=== PATIENT | female | born 1960 | race Caucasian/White ===

== ENCOUNTER → 2017-08-07 15:18 | Outpatient (CLI) | payer MEDICARE, SELFPAY ==
--- NOTE | 2017-08-07 15:21 | HPBI_ITS ---
MAMMOGRAPHY - BILATERAL SCREENING REASON FOR EXAM: Female, 57 years old. Routine annual screening examination. PERTINENT HISTORY: Mother with breast cancer. TECHNIQUE: Digital bilateral breast natali (3D mammographic acquisition) in the CC and MLO projections. 2-D mediolateral oblique (MLO) and craniocaudad (CC) views of both breasts were obtained. CAD: Full Field Digital Mammography with Computer Added Detection was performed. COMPARISON: Comparison is made with prior study dated July 31, 2016 and January 25, 2015. FINDINGS: Breast Composition: The breasts are heterogeneously dense, which may obscure small masses. There are no dominant masses or suspicious calcifications. Stable benign-appearing bilateral axillary lymph nodes. No other significant abnormalities are identified. There has been no significant change since the prior study. HPBI/SCREENING MAMM (CAD), BILAT IMPRESSION: Stable bilateral screening mammogram. Yearly follow-up mammogram recommended. (A) ASSESSMENT CATEGORY: BIRADS Category 2: Benign. A letter regarding these results will be sent to the patient by the facility within 30 days. Approximately 10% of breast cancers are not detected by mammography. A normal mammogram should not delay biopsy of a clinically suspicious abnormality. [id number] Electronically Signed: Kaz Martinez MD at 9:49 EST Tel [phone], Service support ,
== END ==
PROVIDERS: Family Provider Internal Medicine; PCP Internal Medicine; Visit Provider Internal Medicine
DX: Z78.0 Asymptomatic menopausal state (principal); Z12.31 Encounter for screening mammogram for malignant neoplasm of breast
CPT/HCPCS: 77063; 77067

== ENCOUNTER → 2017-08-12 11:03 | Outpatient (CLI) | payer MEDICARE, SELFPAY ==
--- NOTE | 2017-08-12 11:05 | US_ITS ---
STUDY: THYROID ULTRASOUND REASON FOR EXAM: Female, 57 years old. Thyroid nodule. TECHNIQUE: Ultrasound evaluation of the thyroid was performed with real-time and static collado-scale imaging. COMPARISON: None. FINDINGS: RIGHT LOBE: The right lobe of the thyroid gland measures 3.6 cm x 1.4 cm x 1.7 cm. There is a 7.4 mm x 4.6 mm cyst in the lower pole of the right lobe.. There are no demonstrated solid, cystic or complex lesions. LEFT LOBE: The left lobe of the thyroid gland measures 4.1 cm x 1.2 cm x 1.4 cm. There is a homogeneous echotexture. There are no demonstrated solid, cystic or complex lesions. ISTHMUS: The isthmus measures 2.0 mm. The regional lymph nodes are normal. US/Thyroid IMPRESSION: 7.4 mm x 4.6 mm cyst in the lower pole of the right lobe of the thyroid. Electronically Signed: Kaz Martinez MD at 20:09 EST Tel [phone], Service support ,
--- NOTE | 2017-08-12 11:18 | HPBD_ITS ---
STUDY: DUAL ENERGY X-RAY ABSORPTIOMETRY / DXA REASON FOR EXAM: Female, 57 years old. Early menopause. Loss of height of 2.5 inches. TECHNIQUE: Bone Mineral Density (BMD) measurements of lumbar spine and bilateral hips were obtained. COMPARISON: Comparison is made with prior study dated January 25, 2015. FINDINGS: Lumbar Spine (L1-L4): g/cm2 (1.037) / T-score (-1.2) / Z-score (-0.2) Findings are suggestive of osteopenia with a moderate fracture risk. Left Femur Total: g/cm2 (0.928) / T-score (-0.6) / Z-score (0.2) Left Femoral Neck: g/cm2 (0.879) / T-score (-1.1) / Z-score (0.0) Right Femur Total: g/cm2 (0.893) / T-score (-0.9) / Z-score (-0.1) Right Femoral Neck: g/cm2 (0.865) / T-score (-1.2) / Z-score (-0.1) The T-Scores on the most recent prior examination were: Lumbar Spine (L1-L4): There has been worsening of bone density since the previous examination. Left Femur Total: which represents a worsening of 3.0%. Right Femur Total: which represents a worsening of 0.9%. HPBD/Dexa Bone Density Study (HP) IMPRESSION: The patient is considered osteopenic as outlined below according to World Ham Organization (WHO) criteria with a moderate fracture risk. There has been worsening of bone density since the previous examination. Reference Information: The T-score is the number of standard deviations above or below the standard which is normal for young adults at their peak bone mineral density. The World Health Organization (WHO) interprets the T-scores as follows: Above -1 Normal bone density Between -1 and -2.5 Osteopenia Equal to / or below -2.5 Osteoporosis As a practical clinical guideline, osteopenia may be graded as follows: Mild -1 through -1.5 Moderate -1.6 through -2.0 Severe -2.1 through -2.4 The Z-score is the number of standard deviations above or below age-matched controls. A Z-score of less than -1.5 would be considered abnormal. References: 1. NIH Osteoporosis and Related Bone Diseases http://www.osteo.org 2. International Society for Clinical Densitometry http://www.iscd.org 3. National Osteoporosis Foundation http://www.nof.org Electronically Signed: Kaz Martinez MD at 13:05 EST Tel [phone], Service support ,
== END ==
PROVIDERS: Family Provider Internal Medicine; PCP Internal Medicine; Visit Provider Internal Medicine
DX: E04.1 Nontoxic single thyroid nodule (principal); M85.80 Other specified disorders of bone density and structure, unspecified site; Z78.0 Asymptomatic menopausal state
CPT/HCPCS: 76536; 77080

== ENCOUNTER → 2017-10-06 14:02 | Outpatient (CLI) | payer MEDICARE, SELFPAY ==
--- NOTE | 2017-10-06 14:04 | RAD_ITS ---
STUDY: X-RAY CHEST REASON FOR EXAM: Female, 57 years old. Anterior but pain following a fall. TECHNIQUE: PA and lateral views of the chest. COMPARISON: Comparison is made with prior study dated September 27, 2016. FINDINGS: There now is evidence of infiltration in the left lower lobe as well as increased markings in the right lower lobe suggestive of bibasilar atelectasis and/or early infiltrate. With the patient's history of fall, this may represent contusion. Blunting of both costophrenic angles. Normal size heart. Normal mediastinum and yandy. Normal visualized pulmonary arteries. There is atherosclerotic tortuosity of the aortic arch and descending thoracic aorta. There are diffuse degenerative changes of the visualized thoracic spine. Normal visualized ribs, clavicles, and shoulders. Prior fusion of the lower cervical spine. There is no demonstrated abnormality of the visualized soft tissue structures of the upper abdomen. RAD/Chest PA and Lateral IMPRESSION: Infiltrates at both lung bases worse on the left side. Follow-up is recommended. Electronically Signed: Kaz Martinez MD at 14:26 EDT Tel [phone], Service support ,
--- NOTE | 2017-10-06 14:04 | RAD_ITS ---
STUDY: X-RAY - UNILATERAL RIBS ( LEFT ) REASON FOR EXAM: Female, 57 years old. Pain following a fall. TECHNIQUE: 4 view(s) of the ribs. COMPARISON: None. FINDINGS: Normal visualized ribs without a demonstrated fracture. Bibasilar pulmonary infiltrates worse on the left side. Blunting of both costophrenic angles. RAD/Ribs Unil 2V No CXR IMPRESSION: No rib fractures seen. Patchy bibasilar pulmonary infiltrates. Electronically Signed: Kaz Martinez MD at 14:58 EDT Tel [phone], Service support ,
== END ==
PROVIDERS: Family Provider Internal Medicine; PCP Internal Medicine; Visit Provider Internal Medicine
DX: R91.8 Other nonspecific abnormal finding of lung field (principal); R07.9 Chest pain, unspecified; R05 Cough
CPT/HCPCS: 71046; 71100; 71101

== ENCOUNTER → 2018-01-30 14:26 | Outpatient (CLI) | payer MEDICARE, SELFPAY ==
--- NOTE | 2018-01-30 14:28 | RAD_ITS ---
STUDY: X-RAY - PELVIS AND LEFT HIP REASON FOR EXAM: Female, 57 years old. Left hip pain. No trauma. TECHNIQUE: Radiological exam, hip, unilateral, with pelvis when performed; 2 or 3 views. COMPARISON: None. FINDINGS: There is a non-specific bowel gas pattern. Normal visualized soft tissue structures. Normal bilateral iliac wings, sacroiliac joints and visualized sacrum. Normal bilateral superior and inferior pubic rami. Normal pubic symphysis. Normal visualized femoral head. Normal acetabulum. There is moderate articular joint space narrowing of the hip. There is degenerative lumbosacral spondylosis. Mild/moderate right hip arthrosis. No demonstrated fracture or dislocation. RAD/HIP, UNI W/ Pelvis 2-3 Views IMPRESSION: 1. Mild/moderate bilateral degenerative hip arthrosis. 2. Significant degenerative spondylosis of the visualized lumbosacral spine. Electronically Signed: Neris Kimbrough MD at 18:19 EDT Tel , Service support ,
== END ==
PROVIDERS: Family Provider Internal Medicine; PCP Internal Medicine; Visit Provider Internal Medicine
DX: M16.12 Unilateral primary osteoarthritis, left hip (principal); M47.897 Other spondylosis, lumbosacral region
CPT/HCPCS: 73502

== ENCOUNTER → 2018-03-03 12:39 | Outpatient (CLI) | payer MEDICARE, SELFPAY ==
--- NOTE | 2018-03-03 12:42 | RAD_ITS ---
STUDY: X-RAY CHEST REASON FOR EXAM: Female, 57 years old. Chest pain. TECHNIQUE: PA and lateral views of the chest. COMPARISON: Comparison is made with prior study dated October 06, 2017. FINDINGS: Persistent increased interstitial markings with areas of confluence worse in the lingular segment of the left upper lobe. This has improved as compared to prior study. There is blunting of the right costophrenic angle posteriorly. Normal size heart. Normal mediastinum and yandy. Normal visualized pulmonary arteries. There is atherosclerotic tortuosity of the aortic arch and descending thoracic aorta. There is demineralization of the osseous structures. Normal visualized ribs, clavicles, and shoulders. There is no demonstrated abnormality of the visualized soft tissue structures of the upper abdomen. RAD/Chest PA and Lateral IMPRESSION: Residual increased linear markings with prominence of both lung bases slightly worse on the left side. Electronically Signed: Kaz Martinez MD at 13:04 EDT Tel [phone], Service support ,
== END ==
PROVIDERS: Family Provider Internal Medicine; PCP Internal Medicine; Visit Provider Internal Medicine
DX: R07.9 Chest pain, unspecified (principal)
CPT/HCPCS: 71046

== ENCOUNTER → 2018-03-03 12:58 | Outpatient (CLI) | payer MEDICARE, SELFPAY ==
[2018-03-03 13:22] LABS: Absolute Lymphocyte Count 1.76 X10^3/ul (0.83-4.51); Absolute Neutrophil Count 8.1 X10^3/uL (2.0-7.7); Basophil# 0.02 X10^3/uL; Basophil% 0.2 % (0-1); Eosinophil# 0.34 X10^3/uL; Eosinophils% 3.1 % (0-5); Hematocrit 41.8 % (37-47); Hemoglobin 12.6 g/dl (12.0-15.0); Lymphocyte # 1.76 X10^3/ul (4.0); Lymphocyte % 15.9 % (19-41); Mean Corp Hgb Conc 30.1 g/gl (32-36); Mean Corpuscular Hgb 24.5 pg (27.0-32.0); Mean Corpuscular Volume 81.2 fL (81-99); Mean Platelet Vol. 9.5 fl (6.2-12.0); Monocyte# 0.84 X10^3/uL; Monocyte% 7.6 % (0-10); Neutrophil # 8.12 X10^3/uL (2.7-7.7); Platelet Count 531 K/mm3 (150-450); RBC Distribution Width SD 54.1 fl (35.1-43.9); Red Blood Count 5.15 M/mm3 (4.2-5.4); White Blood Count 11.1 K/mm3 (4.4-11.0)
[2018-03-03 13:23] LABS: POSITIVE COUNT NO; POSITIVE DIFFERENTIAL NO; POSITIVE MORPHOLOGY NO
[2018-03-03 13:24] LABS: ALB/GLOB Ratio 0.7 RATIO (0.9-2.4); AST(SGOT) 22 U/L (15-37); Alanine Aminotransfer ALT/SGPT 49 U/L (13-56); Alkaline Phosphatase 253 U/L (45-117); Anion Gap 9 (5-15); BUN 9 mg/dL (7-18); BUN/Creat Ratio 11.8 RATIO (10-20); Calcium,Total 8.8 mg/dL (8.5-10.1); Chloride 105 mmol/L (98-107); Creatinine, Serum 0.76 mg/dL (0.55-1.02); EST Glomerular Filtration Rate 83 mL/min (>60); Est Glom Filt Rate - Afr Amer 100 mL/min (>60); Globulin 4.1 g/dL (2.2-4.2); Glucose 79 mg/dL (74-106); Protein, Total 7.1 g/dL (6.4-8.2); Sodium Level 141 mmol/L (136-145)
[2018-03-04 14:24] LABS: GGTP 213 U/L (5-55)
== END ==
PROVIDERS: Family Provider Internal Medicine; PCP Internal Medicine; Visit Provider Internal Medicine
DX: E87.1 Hypo-osmolality and hyponatremia (principal); E53.8 Deficiency of other specified B group vitamins; R74.8 Abnormal levels of other serum enzymes; R07.9 Chest pain, unspecified
CPT/HCPCS: 71046; 80053; 82977; 85025

== ENCOUNTER 2018-03-09 20:41 | Emergency (ER) | payer MEDICARE, SELFPAY ==
[2018-03-09 20:43] VITALS: BP 168/100; PULSE 119; RESP 18; TEMP 35.6; O2SAT 95; BMI 41.1
--- NOTE | 2018-03-09 20:46 | ED.RN ---
rn called for ekg pulled old ekg for
--- NOTE | 2018-03-09 21:05 | EKG12_ITS ---
Test Reason : CP Blood Pressure : / mmHG Vent. Rate : 117 BPM Atrial Rate : 117 BPM P-R Int : 140 ms QRS Dur : 082 ms QT Int : 312 ms P-R-T Axes : 000 153 137 degrees QTc Int : 435 ms Sinus tachycardia Left posterior fascicular block Possible Inferior infarct , age undetermined Abnormal ECG Confirmed by BROOKE PERKINS, LEE ([id number]), desk editor PABLO NUGENT ([id number]) on 03/12/2018 1:07:42 PM Referred By: GOMEZ Confirmed By:LEE COX MD
--- NOTE | 2018-03-09 21:05 | CT_ITS ---
STUDY: CTA CHEST REASON FOR EXAM: Female, 57 years old. Chest pain RADIATION DOSAGE (If Supplied By Facility): CTDIvol = ( 8.90 ) mGy, DLP = ( 517.44 ) mGycm TECHNIQUE: The examination was performed with the intravenous administration of 100 ml of Isovue 370 contrast material. Post-processing of the angiographic images was performed, with multiplanar reformation and 3D reconstruction. There is obesity, the entirety of soft tissue is not imaged. Individualized dose optimization techniques were used for this CT. COMPARISON: Chest x-ray 03/03/2018. FINDINGS: Normal enhancement of the main pulmonary artery and right and left pulmonary arteries. Limited enhancement of the bilateral peripheral pulmonary arteries. There is no central demonstrated pulmonary embolism. Ectasia of the ascending thoracic aorta 4.12 cm. Normal descending thoracic aortic diameter off 2.4 x 2.4 cm. There is no demonstrated aortic dissection. Normal heart and pericardium. Normal mediastinum. Normal hilar regions. Normal visualized trachea and bronchi. The lungs are under expanded. Bilateral platelike atelectasis and small areas of bilateral airspace opacification in the bases. Linear calcification versus sutures in the right base. Bilateral small pleural effusions. Normal chest wall structures. There are degenerative changes of thoracic spine and bilateral shoulder joints. Remote anterior fusion lower cervical spine. Normal visualized upper abdomen. CT/CTA Chest W/WO Contrast IMPRESSION: No demonstrated central pulmonary embolism, leak or arterial dissection. Limited peripheral pulmonary embolic assessment due to technical factors. Ectasia of the thoracic ascending aorta. Low lung volume with bilateral atelectasis, small bilateral pleural effusion, small areas of opacification possible mild infiltrates in the bases versus compression of parenchyma. Electronically Signed: Caren Iqbal MD at 0:41 EDT , Service support ,
[2018-03-09 21:21] LABS: International Normalized Ratio 1.9; Prothrombin Time (Protime)PT. 22.1 SECONDS (11.7-14.9)
[2018-03-09 21:22] VITALS: O2SAT 94
[2018-03-09] MEDS: 0.9% Normal Saline 1,000 ML 1000 ML IV (21:23)
[2018-03-09 21:28] LABS: Absolute Lymphocyte Count 1.24 X10^3/ul (0.83-4.51); Absolute Neutrophil Count 11.8 X10^3/uL (2.0-7.7); Anion Gap 10 (5-15); BUN 13 mg/dL (7-18); BUN/Creat Ratio 13.1 RATIO (10-20); Basophil# 0.04 X10^3/uL; Basophil% 0.3 % (0-1); Chloride 103 mmol/L (98-107); Creatinine, Serum 0.99 mg/dL (0.55-1.02); EST Glomerular Filtration Rate 61 mL/min (>60); Eosinophil# 0.41 X10^3/uL; Eosinophils% 2.8 % (0-5); Est Glom Filt Rate - Afr Amer 74 mL/min (>60); Estimated Creatinine Clearance 53.49 ml/min; Glucose 196 mg/dL (74-106); Hematocrit 43.4 % (37-47); Hemoglobin 13.4 g/dl (12.0-15.0); Lymphocyte # 1.24 X10^3/ul (4.0); Lymphocyte % 8.4 % (19-41); Mean Corp Hgb Conc 30.9 g/gl (32-36); Mean Corpuscular Hgb 24.8 pg (27.0-32.0); Mean Corpuscular Volume 80.4 fL (81-99); Mean Platelet Vol. 9.5 fl (6.2-12.0); Monocyte# 1.19 X10^3/uL; Monocyte% 8.1 % (0-10); Neutrophil # 11.78 X10^3/uL (2.7-7.7); Neutrophil % 79.9 % (47-70); Platelet Count 381 K/mm3 (150-450); Potassium 5.1 mmol/L (3.5-5.1); RBC Distribution Width CV 18.3 % (11.6-14.6); RBC Distribution Width SD 53.6 fl (35.1-43.9); Sodium Level 136 mmol/L (136-145); White Blood Count 14.7 K/mm3 (4.4-11.0)
[2018-03-09 21:36] LABS: POSITIVE COUNT NO; POSITIVE DIFFERENTIAL NO; POSITIVE MORPHOLOGY NO
[2018-03-09] MEDS: MethylPREDNISolone 125 MG/2 ML Vial IV (21:37)
[2018-03-09] MEDS: DiphenhydrAMINE 50 MG/ML Syringe 25 MG IV (21:37)
[2018-03-09 21:48] VITALS: BP 143/104; PULSE 95; RESP 17; O2SAT 99
[2018-03-09 22:00] VITALS: BP 145/104; PULSE 92; O2SAT 96
[2018-03-09 23:00] VITALS: BP 140/87; PULSE 93; RESP 17; O2SAT 95
--- NOTE | 2018-03-09 23:51 | ED.VISSUMM ---
- ER Visit Summary Date of Service: 03/09/18 Chief Complaint: Chest pain History of Present Illness: The patient is a [address] bains and Dr. Crane. She reports that she has right-sided chest pain that began 5 days ago. It is continuous aching pain with sharp episodes. States pain is 1010 hrs. and 7-10 currently. There is no change with exertion. She reports is worsened with deep breaths or movement. Is relieved by nothing. Patient complains of subjective fever and chills. States that she had a cough, that this resolved 2 days ago. States that she had been on Levaquin for 10 days. She was offered 3 days and her cough resumed. She then begin Levaquin again 5 days ago and is scheduled to take this for another 5 days. Patient reports that she has mild shortness of breath. States that she has been nauseated. No abdominal pain. No vomiting or diarrhea. No dysuria or frequency. No rash, headache, numbness, or weakness. Physical Examination: Vitals: 96.1, 168/100, 119, 18, 95% on room air which is not hypoxic. General: Well-nourished and well-developed. Head: Normocephalic atraumatic. Neck: Supple, no lymphadenopathy. No JVD. Nontender. Cardiovascular: Regular rate and rhythm. No murmurs. Respiratory: No respiratory distress. Clear to auscultation bilaterally. Chest is nontender. Abdominal: Soft, nontender, nondistended, normal bowel sounds. No guarding, rebound, or peritoneal signs. Back: Nontender. Extremities: Nontender, no edema. Skin: Normal color, no rash. Neurologic: Alert and oriented ?3. Cranial nerves II through XII are intact. Normal strength and sensation. Psych: Normal affect. Test Results: EKG is sinus tach [address] changes. CBC is marked for white count of 14.7 with 80 segmented neutrophils and 8 lymphocytes. Chem-7 is more for glucose of 196. INR is 1.9. Clinical Impression(s) from Imaging Studies Chest CTA 03/09/18 21:05 IMPRESSION: No demonstrated central pulmonary embolism, leak or arterial dissection. Limited peripheral pulmonary embolic assessment due to technical factors. Ectasia of the thoracic ascending aorta. Low lung volume with bilateral atelectasis, small bilateral pleural effusion, small areas of opacification possible mild infiltrates in the bases versus compression of parenchyma. Electronically Signed: Caren Iqbal MD at 0:41 EDT , Service support , Emergency Department Course and Treatment: Patient reports that her resting heart rate is typically approximately 110. However, after Benadryl, Solu-Medrol, and a liter of IV fluids her heart rate is currently 95. Her blood pressures decreased 143/104. She is resting comfortably. Treatment Plan: The patient was discussed with Dr. Bains and the findings on the CTA of the chest were reviewed. She felt that the patient should be admitted to the hospital for IV steroids. The patient does not want to stay in the hospital. She was already given a dose of Solu-Medrol IV. I did discuss with her the low INR. She reports that she took 4 mg of Coumadin 30 minutes before coming in today. We discussed the possibility of changing her antibiotic from Levaquin to doxycycline. Her last dose was 11 hours ago. She has a great deal of suleman and Dr. Bains and I suggested she speak with her about that before we make that change. She is instructed to follow-up with Dr. Bains in 1-2 days if not improving. Follow-up with Dr. Crane in 2 days as previously scheduled. Return to the emergency department for any worsening symptoms. Disposition: To home in improved and stable condition. Impression: 1. Dyspnea. 2. Rheumatoid arthritis on CellCept. 3. Subtherapeutic INR. This note was generated with [employer] dictation software. It may contain incorrect words, spelling, and punctuation that were not noted in review of the chart prior to signing ED Disposition - Plan for ED Patient: Chief Complaint: Chest Pain Instructions: ED Dyspnea Shortness of Breath Referrals: Fatmata Bains DO [Primary Care Provider] - 1-2 Days if not improving Jesus Crane MD [STAFF PHYSICIAN] - Keep [facility] appointment
[2018-03-10] VITALS: BP 155/103; PULSE 85; O2SAT 97
[2018-03-10 01:25] VITALS: BP 146/104; PULSE 91; RESP 20; O2SAT 92
== END 2018-03-10 01:26 | disposition home or self-care (01) ==
LOC: ED 21:41
PROVIDERS: Emergency Provider Emergency Medicine; Family Provider Internal Medicine; PCP Internal Medicine
DX: R06.00 Dyspnea, unspecified (principal); M06.9 Rheumatoid arthritis, unspecified; I74.10 Embolism and thrombosis of unspecified parts of aorta; I10 Essential (primary) hypertension; E78.00 Pure hypercholesterolemia, unspecified; Z79.01 Long term (current) use of anticoagulants
CPT/HCPCS: 71275; 80048; 85025; 85610; 93005; 96361; 96374; 96375; 99284; J7030; Q9967; A4216

== ENCOUNTER → 2018-04-06 14:02 | Outpatient (CLI) | payer MEDICARE, SELFPAY ==
[2018-04-06 14:25] LABS: Erythrocyte Sedimentation Rate 32 mm/hr (0-30)
[2018-04-06 14:29] LABS: Absolute Lymphocyte Count 2.21 X10^3/ul (0.83-4.51); Absolute Neutrophil Count 8.3 X10^3/uL (2.0-7.7); Basophil# 0.02 X10^3/uL; Basophil% 0.2 % (0-1); Eosinophil# 0.25 X10^3/uL; Eosinophils% 2.1 % (0-5); Hematocrit 43.6 % (37-47); Hemoglobin 13.2 g/dl (12.0-15.0); Lymphocyte # 2.21 X10^3/ul (4.0); Lymphocyte % 18.8 % (19-41); Mean Corp Hgb Conc 30.3 g/gl (32-36); Mean Corpuscular Volume 82.7 fL (81-99); Mean Platelet Vol. 9.9 fl (6.2-12.0); Monocyte# 0.95 X10^3/uL; Monocyte% 8.1 % (0-10); Neutrophil # 8.26 X10^3/uL (2.7-7.7); Neutrophil % 70.5 % (47-70); Platelet Count 393 K/mm3 (150-450); RBC Distribution Width CV 17.9 % (11.6-14.6); RBC Distribution Width SD 54.3 fl (35.1-43.9); Red Blood Count 5.27 M/mm3 (4.2-5.4); White Blood Count 11.7 K/mm3 (4.4-11.0)
[2018-04-06 14:32] LABS: POSITIVE COUNT NO; POSITIVE DIFFERENTIAL NO; POSITIVE MORPHOLOGY NO
[2018-04-06 14:36] LABS: International Normalized Ratio 1.8; Prothrombin Time (Protime)PT. 21.3 SECONDS (11.7-14.9)
[2018-04-06 14:37] LABS: ALB/GLOB Ratio 0.8 RATIO (0.9-2.4); AST(SGOT) 20 U/L (15-37); Alanine Aminotransfer ALT/SGPT 52 U/L (13-56); Albumin, Serum 3.1 g/dL (3.2-5.0); Alkaline Phosphatase 199 U/L (45-117); Anion Gap 8 (5-15); BUN 10 mg/dL (7-18); BUN/Creat Ratio 12.3 RATIO (10-20); Chloride 102 mmol/L (98-107); Creatinine, Serum 0.81 mg/dL (0.55-1.02); EST Glomerular Filtration Rate 77 mL/min (>60); Est Glom Filt Rate - Afr Amer 93 mL/min (>60); Glucose 83 mg/dL (74-106); Potassium 3.7 mmol/L (3.5-5.1); Protein, Total 7.1 g/dL (6.4-8.2); Sodium Level 141 mmol/L (136-145)
== END ==
PROVIDERS: Family Provider Internal Medicine; PCP Internal Medicine; Referring Provider Internal Medicine; Visit Provider Internal Medicine
DX: K11.1 Hypertrophy of salivary gland (principal); R07.9 Chest pain, unspecified
CPT/HCPCS: 80053; 84484; 85025; 85610; 85652; 86140

== ENCOUNTER → 2018-06-01 12:19 | Outpatient (CLI) | payer MEDICARE, SELFPAY ==
--- NOTE | 2018-06-01 13:10 | MRI_ITS ---
STUDY: MRI ORBITS WITH AND WITHOUT CONTRAST REASON FOR EXAM: Female, 57 years old. Generalized facial swelling TECHNIQUE: Standardized fat and water weighted pulse sequences were obtained in all 3 orthogonal planes, pre-and post contrast administration. 10 ml of Gadavist contrast material was administered intravenously for the contrast portion of the examination. COMPARISON: None. FINDINGS: Normal bilateral globes. Normal bilateral optic nerve sheath complexes and optic nerves. Normal bilateral intraconal and extraconal spaces. Normal bilateral extraocular muscles. Normal optic chiasm and post-chiasmatic tracts. Normal sella turcica, pituitary gland, infundibular stalk, and hypothalamus. Normal bilateral cavernous sinuses. Normal tectal plate and pineal gland. Normal flow voids within the major intracranial circulation suggesting patency by spin echo criteria. Normal size of the ventricles and extra-axial spaces for the patient's age. Minor periventricular white matter ischemic changes without evidence for acute infarct. Normal bilateral basal ganglia. Normal thalami. There is no extra-axial fluid accumulation. Normal midbrain, johnathan and medulla. Normal cerebellum. Normal basal cisterns. There is diffuse increased fatty infiltration of the cheeks as well as the parotid glands and mild fatty infiltration of the masseter muscles. No focal mass or pathologic adenopathy. MRI/Orbit Face Neck W/WO Contrast IMPRESSION: Nonspecific increasing fatty infiltration of the facial soft tissues including the parotid glands and masseter muscles. No focal mass or abnormal enhancement Electronically Signed: Kevin Sebastian MD at 16:24 EST , Service support ,
--- NOTE | 2018-06-01 15:40 | NURSING ---
MRI CONTRAST INJECTED THROUGH RT AC 22GA ACCESS VIA BUTTERFLY NEEDLE. PT TOLERATED WELL.
[2018-06-01 17:00] LABS: Absolute Lymphocyte Count 2.54 X10^3/ul (0.83-4.51); Absolute Neutrophil Count 9.2 X10^3/uL (2.0-7.7); Basophil# 0.04 X10^3/uL; Basophil% 0.3 % (0-1); Eosinophil# 0.18 X10^3/uL; Eosinophils% 1.4 % (0-5); Hemoglobin 13.2 g/dl (12.0-15.0); Lymphocyte # 2.54 X10^3/ul (4.0); Lymphocyte % 19.4 % (19-41); Mean Corp Hgb Conc 30.7 g/gl (32-36); Mean Corpuscular Hgb 26.7 pg (27.0-32.0); Mean Corpuscular Volume 86.9 fL (81-99); Mean Platelet Vol. 10.1 fl (6.2-12.0); Monocyte% 7.6 % (0-10); Neutrophil # 9.23 X10^3/uL (2.7-7.7); Neutrophil % 70.5 % (47-70); Platelet Count 438 K/mm3 (150-450); RBC Distribution Width CV 19.4 % (11.6-14.6); RBC Distribution Width SD 60.8 fl (35.1-43.9); Red Blood Count 4.95 M/mm3 (4.2-5.4); White Blood Count 13.1 K/mm3 (4.4-11.0)
[2018-06-01 17:09] LABS: POSITIVE COUNT NO; POSITIVE DIFFERENTIAL NO; POSITIVE MORPHOLOGY NO
[2018-06-01 17:28] LABS: Vitamin D,25 Hydroxy 18.2 ng/mL (29.95-100.01)
[2018-06-01 17:29] LABS: ALB/GLOB Ratio 0.7 RATIO (0.9-2.4); AST(SGOT) 21 U/L (15-37); Alanine Aminotransfer ALT/SGPT 38 U/L (13-56); Albumin, Serum 2.9 g/dL (3.2-5.0); Alkaline Phosphatase 169 U/L (45-117); Anion Gap 9 (5-15); BUN 14 mg/dL (7-18); BUN/Creat Ratio 13.6 RATIO (10-20); Calcium,Total 8.8 mg/dL (8.5-10.1); Chloride 104 mmol/L (98-107); Creatinine, Serum 1.03 mg/dL (0.55-1.02); EST Glomerular Filtration Rate 58 mL/min (>60); Est Glom Filt Rate - Afr Amer 71 mL/min (>60); Globulin 4.1 g/dL (2.2-4.2); Glucose 85 mg/dL (74-106); Potassium 3.8 mmol/L (3.5-5.1); Sodium Level 142 mmol/L (136-145); Thyroid Stim Hormone (TSH) 1.67 uIU/mL (0.358-3.74)
[2018-06-01 17:33] LABS: Erythrocyte Sedimentation Rate 28 mm/hr (0-30)
[2018-06-01 18:44] LABS: BNP,B-Type NATRIURETIC PEPTIDE 17.8 pg/mL (0-100)
[2018-06-03 14:01] LABS: RNP Ab <0.2 AI (0.0-0.9); Smith Ab <0.2 AI (0.0-0.9)
[2018-06-03 15:34] LABS: ANTINUCLEAR ANTIBODIES DIRECT Negative (Negative)
[2018-06-06 12:06] LABS: Dilute Prothrombin Time (dPT) 116.2 sec (0.0-55.0); Dilute Russell Viper Venom Mix 50.3 sec (0.0-47.0); PTT-LA 45.6 sec (0.0-51.9); Thrombin Time 18.3 sec (0.0-23.0)
[2018-06-08 11:36] LABS: CCP IgG Antibodies 162 units (0-19); Interpretation Comment: (.)
== END ==
PROVIDERS: Family Provider Internal Medicine; PCP Internal Medicine; Referring Provider Internal Medicine; Visit Provider Internal Medicine
DX: M06.9 Rheumatoid arthritis, unspecified (principal); M79.7 Fibromyalgia; M35.00 Sjogren syndrome, unspecified; D68.62 Lupus anticoagulant syndrome; M54.2 Cervicalgia; R22.0 Localized swelling, mass and lump, head; R06.02 Shortness of breath
CPT/HCPCS: 36415; 70543; 80053; 82306; 83880; 84443; 85025; 85652; 86038; 86140; 86200; 86225; 86235; 86431; A9585

== ENCOUNTER → 2018-07-17 14:29 | Outpatient (CLI) | payer MEDICARE, SELFPAY ==
--- NOTE | 2018-07-17 14:32 | CT_ITS ---
STUDY: CT CHEST WITHOUT CONTRAST REASON FOR EXAM: Female, 57 years old. Rheumatoid lung. RADIATION DOSAGE (If Supplied By Facility): CTDIvol = ( 14.80 ) mGy, DLP = ( 436.24 ) mGycm TECHNIQUE: Transaxial imaging was performed without the administration of intravenous contrast material. Coronal and sagittal reformatted images were created. Individualized dose optimization techniques were used for this CT. COMPARISON: 03/09/2018 FINDINGS: There is linear opacity in the mid to lower lung davidson bilaterally which may be due to scarring or atelectasis. There are no pulmonary infiltrates. There is a trace left pleural effusion. There is no right-sided effusion. There are no pulmonary nodules or masses. There is no pneumothorax. The heart and pericardium are within normal limits. There is no thoracic lymphadenopathy. There is no evidence of thoracic aortic aneurysm. Images through the upper abdomen demonstrate no significant abnormality. There are no destructive osseous lesions. CT/Chest without Contrast IMPRESSION: Linear opacity in the mid to lower lung davidson bilaterally which may be due to atelectasis or scarring. Trace left pleural effusion. Otherwise, clear lungs. Electronically Signed: Markus Mackenzie, at 15:07 EST Tel , Service support ,
== END ==
PROVIDERS: Family Provider Internal Medicine; PCP Internal Medicine; Referring Provider Internal Medicine Pulmonary Disease; Visit Provider Internal Medicine Pulmonary Disease
DX: M05.10 Rheumatoid lung disease with rheumatoid arthritis of unspecified site (principal)
CPT/HCPCS: 71250

== ENCOUNTER → 2018-07-30 13:00 | Outpatient (CLI) | payer MEDICARE, SELFPAY ==
--- NOTE | 2018-07-30 13:04 | US_ITS ---
STUDY: THYROID ULTRASOUND REASON FOR EXAM: Female, 58 years old. Nodules. TECHNIQUE: Ultrasound evaluation of the thyroid was performed with real-time and static collado-scale imaging. COMPARISON: August 12, 2017 FINDINGS: RIGHT LOBE: The right lobe of the thyroid gland measures 4.7 x 1.5 x 1.7 cm. There is a homogeneous echotexture. There is a grossly stable cyst within the right lobe measuring 7.4 x 4.6 mm. LEFT LOBE: The left lobe of the thyroid gland measures 4.4 x 1.2 x 1.6 cm. There is a homogeneous echotexture. There are no demonstrated solid, cystic or complex lesions. ISTHMUS: The isthmus measures 4 mm . The regional lymph nodes are normal. US/Thyroid IMPRESSION: Stable 7.4 x 4.6 mm cyst within the right lobe. Enlarged thyroid gland. Electronically Signed: Mariel Storm MD at 16:27 EST Tel , Service support ,
== END ==
PROVIDERS: Family Provider Internal Medicine; PCP Internal Medicine; Referring Provider Internal Medicine; Visit Provider Internal Medicine
DX: E04.1 Nontoxic single thyroid nodule (principal)
CPT/HCPCS: 76536

== ENCOUNTER → 2018-08-07 12:19 | Outpatient (CLI) | payer MEDICARE, SELFPAY ==
--- NOTE | 2018-08-07 12:46 | RAD_ITS ---
STUDY: X-RAY - RIGHT HAND REASON FOR EXAM: Female, 58 years old. Pain TECHNIQUE: 3 view(s) of the hand. COMPARISON: None. FINDINGS: There are degenerative changes involving the interphalangeal joint of the thumb and first carpometacarpal joint. There also degenerative changes involving the radiocarpal articulation and distal radioulnar joint. No acute fractures or dislocations are seen but there is significant soft tissue swelling of the dorsum of the wrist and in the distal forearm. RAD/Hand Min 3 Views IMPRESSION: Soft tissue swelling of the dorsum of the wrist and in the distal forearm. There are no fractures. Degenerative changes involving the interphalangeal joint of the thumb and the first carpometacarpal joint. The radiocarpal and distal radioulnar joints also show degenerative changes Electronically Signed: Shiv Mason MD at 4:32 EST Tel , Service support ,
--- NOTE | 2018-08-07 12:46 | RAD_ITS ---
STUDY: X-RAY - RIGHT SHOULDER REASON FOR EXAM: Female, 58 years old. Pain TECHNIQUE: 4 view(s) of the shoulder. COMPARISON: Chest x-ray March 03, 2018 FINDINGS: There is mild degenerative arthrosis of the glenohumeral articulation. There is a widened appearance of the right-sided acromioclavicular joint which is age indeterminant. Normal acromion. Cephalad migration of the right humeral head. This can be associated with chronic rotator cuff injury. The soft tissue structures are unremarkable. Normal visualized pulmonary apex. RAD/Shoulder min 2 Views IMPRESSION: Age-indeterminate widened appearance of the right side acromioclavicular joint recommend correlation with traumatic and/or post operative history. May be erosive resected or potentially represent a type I AC separation. Degenerative change right glenohumeral joint. Electronically Signed: Vielka Suggs MD at 20:00 EST Tel , Service support ,
--- NOTE | 2018-08-07 12:46 | RAD_ITS ---
STUDY: X-RAY - LEFT HAND REASON FOR EXAM: Female, 58 years old. Pain TECHNIQUE: 3 view(s) of the hand. COMPARISON: None. FINDINGS: There are degenerative changes involving the interphalangeal joint of the thumb, first carpometacarpal joint and the radiocarpal joint. There are no acute fractures or dislocations but there is soft tissue swelling of the wrist and distal forearm. RAD/Hand Min 3 Views IMPRESSION: No fractures. Degenerative changes involving the interphalangeal joint of the thumb, the first carpometacarpal joint and the radiocarpal joint Electronically Signed: Shiv Mason MD at 4:34 EST Tel , Service support ,
--- NOTE | 2018-08-07 12:46 | RAD_ITS ---
STUDY: X-RAY - LEFT SHOULDER REASON FOR EXAM: Female, 58 years old. Pain TECHNIQUE: 4 view(s) of the shoulder. COMPARISON: None. FINDINGS: Degenerative changes of the left hip joint and the glenohumeral articulation. No acute fracture. No calcific tendinitis or bursitis. Electronically Signed: Shiv Mason MD at 5:15 EST Tel , Service support , RAD/Shoulder min 2 Views
--- NOTE | 2018-08-07 12:47 | RAD_ITS ---
STUDY: X-RAY - RIGHT FOOT CLINICAL: Female, 58 years old. Pain TECHNIQUE: 3 view(s) of the foot. COMPARISON: None. FINDINGS: The bones are osteopenic. There is a plantar aspect calcaneal spur. Normal visualized subtalar, talonavicular, calcaneocuboid, tarsal and tarsometatarsal articulations. Normal metatarsi. There are mild degenerative changes of the first metatarsophalangeal joint. Normal tibial and fibular sesamoid bones. Normal interphalangeal joint of the great toe. Normal phalanges of the great toe. Normal second through fifth metatarsophalangeal joints. Normal interphalangeal joints and phalanges of the lesser toes. The soft tissue structures are unremarkable. RAD/Foot min 3 Views IMPRESSION: Generalized osteopenia. Plantar aspect calcaneal spur. Mild degenerative changes of the first metatarsophalangeal joint. Electronically Signed: Fabio Chen MD at 23:58 EST , Service support ,
--- NOTE | 2018-08-07 12:48 | RAD_ITS ---
STUDY: X-RAY - LEFT FOOT CLINICAL: Female, 58 years old. Pain TECHNIQUE: 3 view(s) of the foot. COMPARISON: None. FINDINGS: The bones are osteopenic. There is a plantar aspect calcaneal spur. Normal visualized subtalar, talonavicular, calcaneocuboid, tarsal and tarsometatarsal articulations. Normal metatarsi. There are mild arthritic changes of the first metatarsophalangeal joint. Normal tibial and fibular sesamoid bones. Normal interphalangeal joint of the great toe. Normal phalanges of the great toe. Normal second through fifth metatarsophalangeal joints. Normal interphalangeal joints and phalanges of the lesser toes. The soft tissue structures are unremarkable. RAD/Foot min 3 Views IMPRESSION: Plantar aspect calcaneal spur. Generalized osteopenia. Mild arthritic changes of the first metatarsophalangeal joint. Electronically Signed: Fabio Chen MD at 23:56 EST , Service support ,
== END ==
PROVIDERS: Family Provider Internal Medicine; PCP Internal Medicine; Referring Provider Internal Medicine Rheumatology; Visit Provider Internal Medicine Rheumatology
DX: M06.9 Rheumatoid arthritis, unspecified (principal); M35.00 Sjogren syndrome, unspecified; D68.62 Lupus anticoagulant syndrome; M54.2 Cervicalgia; R22.0 Localized swelling, mass and lump, head
CPT/HCPCS: 73030; 73130; 73630

== ENCOUNTER 2019-02-07 16:36 | Emergency (ER) | payer MEDICARE, SELFPAY ==
[2019-02-07 16:37] VITALS: BP 129/72; PULSE 109; RESP 16; TEMP 36.1; O2SAT 99; BMI 42.9
--- NOTE | 2019-02-07 17:20 | CT_ITS ---
STUDY: CT BRAIN WITHOUT CONTRAST REASON FOR EXAM: Female, 58 years old. Head trauma RADIATION DOSAGE (If Supplied By Facility): CTDIvol = ( 44.99 ) mGy, DLP = ( 779.24 ) mGycm TECHNIQUE: Transaxial CT imaging of the brain was performed without administration of intravenous contrast material. Individualized dose optimization techniques were used for this CT. COMPARISON: No relevant priors. FINDINGS: Normal soft tissue structures. Normal calvarium. Normal size ventricles and extra-axial spaces for the patient's age. Normal white matter tracts of the cerebral hemispheres. Normal basal ganglia and thalami. Normal brainstem. Normal cerebellum. There is no intracranial hemorrhage. There are no findings of an acute ischemic infarction. Normal visualized paranasal sinuses. CT/Brain/Head without Contrast IMPRESSION: Normal unenhanced CT scan of the brain. Electronically Signed: Sean Michaels MD at 18:04 EDT , Service support ,
--- NOTE | 2019-02-07 18:41 | ED.VISSUMM ---
- ER Visit Summary Date of Service: 02/07/19 Chief Complaint: Painless right eye visual loss. History of Present Illness: The patient is a 58 F on Coumadin due to a lupus anticoagulant. Patient states that she fell the other day. At the right side of her face. Was not evaluated. And since Friday has had decreasing vision in the right eye. She was concerned for detached retina. Says she is able to see things closer to her but as he gets further away she cannot see it. Physical Examination: Vital signs stable afebrile. Her visual acuity she is unable to see the letters from normal distance. She is 20/40 in the left and 20/40 bilaterally. With me standing 2 feet from her. She can sit holding up 2 fingers and she can see movement. HEENT exam pupils are unreactive/motions are intact. Some scalp exam of the right eye is unremarkable but limited due to it was not dilated. Neck nontender. Lungs clear to auscultation. Heart regular rhythm no murmur. Abdomen soft nontender. Extremities moves all 4. Neurovascular intact. Test Results: CAT scan of the brain was obtained read as normal by the radiologist reviewed by me. No bleed. No obvious stroke. Emergency Department Course and Treatment: Discussed with Dr. Wall of patient's wound care center consultant on page. He is comfortable as NH with her being evaluated in his office tomorrow. This is been ongoing now for 6 days. Treatment Plan: Follow-up with Dr. Wall's office first thing tomorrow morning. Disposition: Discharge Impression: Acute right eye painless visual loss of uncertain etiology Anticoagulated on Coumadin Recent head injury This note was generated with [employer] dictation software. It may contain incorrect words, spelling, and punctuation that were not noted in review of the chart prior to signing ED Disposition - Plan for ED Patient: Referrals: Fatmata Bains DO [Primary Care Provider] -
--- NOTE | 2019-02-07 18:44 | ED.DEP ---
ED Disposition - Plan for ED Patient: Disposition: Home or Assisted Living Referrals: Kevin Wall MD [STAFF PHYSICIAN] - 1 Day Additional Instructions: Call and make an appointment Dr. Wall office first thing tomorrow morning or he states you can just show up at 8 AM and he will work you in and see you tomorrow morning.
[2019-02-07 18:50] VITALS: BP 139/92; PULSE 98; RESP 16; O2SAT 97
== END 2019-02-07 18:54 | disposition home or self-care (01) ==
PROVIDERS: Emergency Provider Emergency Medicine; Family Provider Internal Medicine; PCP Internal Medicine
DX: H54.61 Unqualified visual loss, right eye, normal vision left eye (principal); S09.90XA Unspecified injury of head, initial encounter; W19.XXXA Unspecified fall, initial encounter; Y93.9 Activity, unspecified; D68.62 Lupus anticoagulant syndrome; Z79.01 Long term (current) use of anticoagulants; I10 Essential (primary) hypertension; M06.9 Rheumatoid arthritis, unspecified; Z79.899 Other long term (current) drug therapy; Z86.73 Personal history of transient ischemic attack (TIA), and cerebral infarction without residual deficits
CPT/HCPCS: 70450; 99283

== ENCOUNTER → 2019-06-04 12:12 | Outpatient (CLI) | payer MEDICARE, SELFPAY ==
[2019-06-04 12:37] LABS: Absolute Lymphocyte Count 1.74 X10^3/uL (0.83-4.51); Absolute Neutrophil Count 7.5 X10^3/uL (2.0-7.7); Basophil# 0.07 X10^3/uL; Basophil% 0.7 % (0-1); Eosinophil# 0.27 X10^3/uL; Eosinophils% 2.5 % (0-5); Hematocrit 39.2 % (37-47); Hemoglobin 11.2 g/dL (12.0-15.0); Lymphocyte # 1.74 X10^3/ul (4.0); Lymphocyte % 16.3 % (19-41); Mean Corp Hgb Conc 28.6 g/dL (32-36); Mean Corpuscular Hgb 27.9 pg (27.0-32.0); Mean Corpuscular Volume 97.5 fL (81-99); Mean Platelet Vol. 9.7 fl (6.2-12.0); Monocyte# 1.02 X10^3/uL; Monocyte% 9.5 % (0-10); NRBC Flagged by Analyzer 0 % (0-5); Neutrophil # 7.48 X10^3/uL (2.7-7.7); POSITIVE MORPHOLOGY YES; Platelet Count 527 K/mm3 (150-450); RBC Distribution Width CV 19.6 % (11.6-14.6); RBC Distribution Width SD 70.4 fl (35.1-43.9); Red Blood Count 4.02 M/mm3 (4.2-5.4); White Blood Count 10.7 K/mm3 (4.4-11.0)
[2019-06-04 12:45] LABS: Differential Indicated SCAN CRITERIA MET
[2019-06-04 12:51] LABS: ALB/GLOB Ratio 0.9 RATIO (0.9-2.4); AST(SGOT) 19 U/L (15-37); Alanine Aminotransfer ALT/SGPT 18 U/L (13-56); Albumin, Serum 3.5 g/dL (3.2-5.0); Alkaline Phosphatase 139 U/L (45-117); Anion Gap 9 (5-15); BUN 10 mg/dL (7-18); BUN/Creat Ratio 9.6 RATIO (10-20); Chloride 105 mmol/L (98-107); Creatinine, Serum 1.04 mg/dL (0.55-1.02); EST Glomerular Filtration Rate 58 mL/min (>60); Est Glom Filt Rate - Afr Amer 70 mL/min (>60); Globulin 3.8 g/dL (2.2-4.2); Glucose 77 mg/dL (74-106); Potassium 3.7 mmol/L (3.5-5.1); Protein, Total 7.3 g/dL (6.4-8.2); Sodium Level 139 mmol/L (136-145)
[2019-06-04 12:59] LABS: International Normalized Ratio 2.3; Prothrombin Time (Protime)PT. 25.3 SECONDS (11.7-14.9)
[2019-06-04 13:27] LABS: Anisocytosis 2+; Platelet Estimate ADEQUATE (ADEQ); Red Cell Morphology N CHROM NORMAL (NORM C&C)
== END ==
PROVIDERS: Family Provider Internal Medicine; PCP Internal Medicine; Referring Provider Internal Medicine; Visit Provider Internal Medicine
DX: E11.9 Type 2 diabetes mellitus without complications (principal); D68.62 Lupus anticoagulant syndrome
CPT/HCPCS: 80053; 85025; 85610

== ENCOUNTER → 2019-08-19 11:58 | Outpatient (CLI) | payer MEDICARE, SELFPAY ==
--- NOTE | 2019-08-19 12:05 | US_ITS ---
STUDY: THYROID ULTRASOUND REASON FOR EXAM: Female, 59 years old. NODULE TECHNIQUE: Ultrasound evaluation of the thyroid was performed with real-time and static collado-scale imaging. COMPARISON: July 30, 2018 ultrasound thyroid, August 12, 2017 ultrasound thyroid FINDINGS: RIGHT LOBE: The right lobe of the thyroid gland measures 4.9 x 1.2 x 1.7 cm. There is a homogeneous echotexture. There is a low attenuating ovoid stable 0.8 x 0 0.7 to 0.5 cm nodule within the right thyroid. There is subtle internal echogenicity that was not seen on the prior study but suggested on the prior study August 12, 2017. There is no significant visualized vascularity. LEFT LOBE: The left lobe of the thyroid gland measures 4.4 x 1.6 x 1.5 cm. There is a homogeneous echotexture. There are no demonstrated solid, cystic or complex lesions. ISTHMUS: The isthmus measures 3 mm . The regional lymph nodes are normal. US/Thyroid IMPRESSION: Small stable-appearing cystic nodule right thyroid measuring 0.8 x 0.7 x 0.5 cm similar to the prior studies consider follow-up in one year to ensure stability. Small neck soft tissue lymph nodes in the vicinity of the left thyroid and cervical chain. Electronically Signed: Vielka Suggs MD at 17:34 EST Tel , Service support ,
--- NOTE | 2019-08-19 12:05 | BI_ITS ---
MAMMOGRAPHY - BILATERAL SCREENING REASON FOR EXAM: Female, 59 years old. Routine annual screening examination. PERTINENT HISTORY: Maternal aunt had breast cancer TECHNIQUE: Digital bilateral breast john (3D mammographic acquisition) in the CC and MLO projections. 2-D mediolateral oblique (MLO) and craniocaudad (CC) views of both breasts were obtained. CAD: Full Field Digital Mammography with Computer Added Detection was performed. COMPARISON: 07/31/2016 FINDINGS: Breast Composition: Scattered There are no dominant masses or suspicious calcifications. No other significant abnormalities are identified. BI/SCREEN MAMM (CAD) W/JOHN BILAT IMPRESSION: Stable bilateral screening mammogram. Yearly follow-up mammogram recommended. (A) ASSESSMENT CATEGORY: BIRADS Category 1: Negative. A letter regarding these results will be sent to the patient by the facility within 30 days. Approximately 10% of breast cancers are not detected by mammography. A normal mammogram should not delay biopsy of a clinically suspicious abnormality. [id number] Electronically Signed: Henok Chung, at 19:01 EST Tel , Service support ,
--- NOTE | 2019-08-19 12:21 | US_ITS ---
STUDY: Soft tissue neck ultrasound REASON FOR EXAM: Female, 59 years old. ENLARGED PAROTIDS TECHNIQUE: Ultrasound evaluation of the soft tissue neck was performed with real-time and static collado-scale imaging. COMPARISON: None. FINDINGS: A sonographically normal lymph node is identified near the right parotid gland measuring 6 x 4 x 4 mm. A sonographically normal lymph node is identified near the left parotid gland measuring 8 x 5 x 3 mm. A 4 x 3 x 3 mm cyst is present in or near the left parotid gland. US/Head/Neck Soft Tissue IMPRESSION: Bilateral sonographically normal. Parotid lymph nodes. A small cyst is present in or near the left parotid gland. Electronically Signed: Eddie Cadet MD at 5:33 EST Tel , Service support ,
--- NOTE | 2019-08-19 12:27 | BD_ITS ---
STUDY: DUAL ENERGY X-RAY ABSORPTIOMETRY / DXA REASON FOR EXAM: Female, 59 years old. Age of kenia- 36. Pat is 263# and 63.5 and quot; a loss of 3 and quot; per patient. Past us of fosamax. Has taken prednisone, and has had cortisone injections. Type II diabetic no meds. Takes daily diuretics. Takes calcium and vit D. Hx of a tib-fib fx, cervical fusion and left hip surgery. TECHNIQUE: Bone Mineral Density (BMD) measurements of lumbar spine and right hip were obtained. COMPARISON: Comparison is made with prior study dated August 12, 2017. FINDINGS: Lumbar Spine (L1-L4): g/cm2 (0.973) / T-score (-1.7) / Z-score (-0.5) Findings are suggestive of osteopenia with a moderate fracture risk. Right Femur Total: g/cm2 (0.887) / T-score (-1.0) / Z-score (0.0) Right Femoral Neck: g/cm2 (0.823) / T-score (-1.5) / Z-score (-0.3) The T-Scores on the most recent prior examination were: Lumbar Spine (L1-L4): There has been worsening of bone density since the previous examination. Right Femur Total: which represents a worsening of 0.7%. BD/Dexa Bone Density Study IMPRESSION: The patient is considered osteopenic as outlined below according to World Ham Organization (WHO) criteria with a moderate fracture risk. There has been worsening of bone density since the previous examination. Reference Information: The T-score is the number of standard deviations above or below the standard which is normal for young adults at their peak bone mineral density. The World Health Organization (WHO) interprets the T-scores as follows: Above -1 Normal bone density Between -1 and -2.5 Osteopenia Equal to / or below -2.5 Osteoporosis As a practical clinical guideline, osteopenia may be graded as follows: Mild -1 through -1.5 Moderate -1.6 through -2.0 Severe -2.1 through -2.4 The Z-score is the number of standard deviations above or below age-matched controls. A Z-score of less than -1.5 would be considered abnormal. References: 1. NIH Osteoporosis and Related Bone Diseases http://www.osteo.org 2. International Society for Clinical Densitometry http://www.iscd.org 3. National Osteoporosis Foundation http://www.nof.org Electronically Signed: Kaz Martinez, at 15:37 EST , Service support ,
== END ==
PROVIDERS: Family Provider Internal Medicine; PCP Internal Medicine; Referring Provider Internal Medicine; Visit Provider Internal Medicine
DX: Z12.31 Encounter for screening mammogram for malignant neoplasm of breast (principal); Z78.0 Asymptomatic menopausal state
CPT/HCPCS: 76536; 77063; 77067; 77080

== ENCOUNTER → 2019-12-21 15:36 | Outpatient (CLI) | payer MEDICARE, SELFPAY ==
--- NOTE | 2019-12-21 15:44 | CT_ITS ---
STUDY: CT CHEST WITH CONTRAST REASON FOR EXAM: Female, 59 years old. TAA AND hx of aortic thrombus. Pt on coumadin. HTN-rx controlled. Prior hysterectomy, lt oopherectomy, cspine fusion, lt hip replacement, rt shoulder replacement, cholecystectomy and appendectomy. RADIATION DOSAGE (If Supplied By Facility): CTDIvol = ( 17.77 ) mGy, DLP = ( 2255.20 ) mGycm TECHNIQUE: Transaxial imaging was performed following intravenous administration of Oral and amp; IV Gastrografin and amp; 100mL Isovue-370. Individualized dose optimization techniques were used for this CT. COMPARISON: Comparison is made with prior study dated July 17, 2018. FINDINGS: Since prior study, there has been slight progression of the increased linear markings at the lung bases suggestive of scarring and/or atelectasis. There is no demonstrated pleural abnormality. There is borderline cardiomegaly. Normal mediastinum. Normal hilar regions. Normal enhanced pulmonary arteries. No evidence of a aortic aneurysm or dissection. There are multi-level degenerative changes of the thoracic spine. There is no demonstrated abnormality of the visualized upper abdomen. CT/Chest WITH Contrast IMPRESSION: Mild degree of markings at the lung bases suggestive of atelectasis and mild scarring. Electronically Signed: Kaz Martinez, at 15:34 EDT , Service support ,
--- NOTE | 2019-12-21 15:45 | CT_ITS ---
STUDY: CT ABDOMEN AND PELVIS WITH CONTRAST REASON FOR EXAM: Female, 59 years old. TAA AND hx of aortic thrombus. Pt on coumadin. HTN-rx controlled. Prior hysterectomy, lt oopherectomy, cspine fusion, lt hip replacement, rt shoulder replacement, cholecystectomy and appendectomy RADIATION DOSAGE (If Supplied By Facility): CTDIvol = ( 17.77 ) mGy, DLP = ( 2255.20 ) mGycm TECHNIQUE: Transaxial images were obtained from the dome of the diaphragm to the symphysis pubis without oral contrast. Oral and amp; IV Gastrografin and amp; 100mL Isovue-370 was administered. Sagittal and coronal images were reconstructed. Individualized dose optimization techniques were used for this CT. COMPARISON: None. FINDINGS: Minimal degree of linear atelectasis at the lung bases. Minimal pericardial thickening. Normal liver. There are surgical clips in the gallbladder fossa consistent with a prior cholecystectomy. Normal spleen. Normal pancreas. Normal bilateral adrenal glands. Normal right kidney. Normal left kidney. Normal visualized stomach. Normal small intestine. Normal colon. There are surgical clips in the region of the appendix consistent with a prior appendectomy. There is evidence of the intimal flap involving the infrarenal abdominal aorta just distal to the origin of the renal arteries with the thrombus seen along the right side of the aorta with a transverse dimension of 4.8 mm. The calcified intima is seen in the central lumen of the distal abdominal aorta. The intimal flap/dissection extends into the distal aorta and terminates at the level of the bifurcation at the origin of the common iliac arteries bilaterally. Normal inferior vena cava. Normal retroperitoneum. Normal urinary bladder. There is absence of the uterus consistent with a prior hysterectomy. Normal abdominal wall. There is evidence of a left total hip replacement. CT/Abdomen/Pelvis WITH Contrast IMPRESSION: Intimal flap/dissection involving the infrarenal abdominal aorta just distal to the origin of the renal arteries. Intramural thrombus is seen along the right wall of the distal aorta with the displacement medially of the calcified intimal flap. This extends into the distal portion of the aorta. Electronically Signed: Kaz Martinez, at 9:48 EDT , Service support ,
[2019-12-21 17:56] LABS: CREATININE FINGERSTICK 0.9 mg/dL (0.55-1.02)
== END ==
PROVIDERS: PCP Internal Medicine; Referring Provider Internal Medicine; Visit Provider Internal Medicine
DX: I71.2 Thoracic aortic aneurysm, without rupture (principal); I74.10 Embolism and thrombosis of unspecified parts of aorta
CPT/HCPCS: 71260; 74177; Q9967

== ENCOUNTER → 2020-02-10 12:55 | Outpatient (CLI) | payer MEDICARE, SELFPAY | PROVIDERS: PCP Internal Medicine; Referring Provider Internal Medicine; Visit Provider Internal Medicine | DX: I49.49 Other premature depolarization (principal) | CPT/HCPCS: 93225; 93226 ==

== ENCOUNTER → 2020-06-08 16:12 | Outpatient (CLI) | payer MEDICARE, SELFPAY ==
--- NOTE | 2020-06-08 16:19 | MRI_ITS ---
STUDY: MRI BRAIN WITH AND WITHOUT CONTRAST REASON FOR EXAM: Female, 59 years old. HEADACHE, EPISODE OF INABILITY TO MOVE RIGHT ARM, R/O TIA TECHNIQUE: Standardized multiplanar fat and water weighted pulse sequences were obtained. IV 23CC DOTAREM was administered for the contrast portion of the examination. COMPARISON: CT of the brain 02/07/2019 FINDINGS: Normal size of the ventricles and extra-axial spaces for the patient''s age. Normal white matter tracts of the supratentorial brain. Normal bilateral basal ganglia. Normal thalami. There is no extra-axial fluid accumulation. Normal flow voids within the major intracranial circulation suggesting patency by spin echo criteria. Normal venous enhancement. There is no enhancing intra-axial or extra-axial abnormality. Normal sella turcica, pituitary gland, infundibular stalk, optic chiasm and hypothalamus. Normal tectal plate and pineal gland. Normal midbrain, johnathan and medulla. Normal cerebellum. Normal basal cisterns. Normal bilateral temporal bones. Normal bilateral internal auditory canals. Postsurgical changes of the orbits.. Normal visualized paranasal sinuses. Normal calvarium and skull base. Normal visualized soft tissue structures. Normal visualized upper cervical spine. MRI/Brain W/WO Contrast IMPRESSION: Normal unenhanced and enhanced MRI of the brain. Electronically Signed: Kevin Sebastian MD at 17:55 EST , Service support ,
== END ==
PROVIDERS: PCP Internal Medicine; Referring Provider Internal Medicine; Visit Provider Internal Medicine
DX: R51.9 Headache, unspecified (principal)
CPT/HCPCS: 70553; A9575

== ENCOUNTER → 2020-07-19 10:20 | Outpatient (CLI) | payer MEDICARE, SELFPAY ==
--- NOTE | 2020-07-19 10:29 | MRI_ITS ---
STUDY: MRI CERVICAL SPINE WITH AND WITHOUT CONTRAST REASON FOR EXAM: Female, 59 years old. cervical stenosis, hx prior fusion 2013, bilateral arm pain/numbness, tingling TECHNIQUE: Standardized fat and water weighted pulse sequences were obtained in the sagittal and axial following administration of IV Dotarem 25ml. COMPARISON: None FINDINGS: Normal foramen magnum and brainstem-cervical cord junction. Normal craniovertebral junction. Normal anterior atlantoaxial articulation. Normal odontoid process. There is straightening of the normal cervical lordosis. Normal vertebral bodies and posterior osseous elements. C2-3: Normal endplates. Normal disc height, signal and morphology. Normal central canal and intervertebral neural foramina. C3-4: Small central disc protrusion produces mild spinal stenosis with abutment of the central spinal cord but no neural foraminal stenosis. C4-5: Mild broad disc osteophyte complex produces mild spinal stenosis but no neural foraminal stenosis. C5-6: Status post anterior cervical discectomy and fusion with anatomic alignment and no spinal stenosis or neural foraminal stenosis. C6-7: Mild bilobed disc osteophyte complex produces mild spinal stenosis and mild bilateral neural foraminal stenosis. C7-T1: Normal endplates. Normal disc height, signal and morphology. Normal central canal and intervertebral neural foramina. Normal cervical cord. No abnormal contrast enhancement. Normal visualized soft tissue structures. MRI/Spine Cervical W/WO Contrast IMPRESSION: Postsurgical changes and degenerative disc disease as described above. Electronically Signed: Arturo Cortez MD at 12:26 EST Tel , Service support ,
== END ==
PROVIDERS: PCP Internal Medicine
DX: M48.02 Spinal stenosis, cervical region (principal)
CPT/HCPCS: 72156; A9575

== ENCOUNTER → 2020-10-09 08:58 | Outpatient (CLI) | payer MEDICARE, SELFPAY ==
--- NOTE | 2020-10-09 09:03 | US_ITS ---
STUDY: THYROID ULTRASOUND REASON FOR EXAM: Female, 60 years old. Thyroid nodule. TECHNIQUE: Ultrasound evaluation of the thyroid was performed with real-time and static collado-scale imaging. COMPARISON: Comparison is made with prior examination dated 08/19/2019 and 2018. FINDINGS: RIGHT LOBE: The right lobe of the thyroid gland is enlarged and measures 5 cm x 1.3 cm x 2 cm. There is a homogeneous echotexture. There is an 8 mm x 6 mm x 4 mm solid and cystic nodule in the lower pole. This is unchanged. LEFT LOBE: The left lobe of the thyroid gland measures 3.9 cm x 1.6 cm x 1.3 cm. There is a homogeneous echotexture. There are no demonstrated solid, cystic or complex lesions. ISTHMUS: The isthmus measures 4 mm. There is a 1.2 cm x 0.7 cm x 0.3 cm benign-appearing lymph node in the left cervical region. US/Thyroid IMPRESSION: Stable solid/cystic nodule in the right lobe of the thyroid. Electronically Signed: Kaz Martinez MD at 13:19 EDT , Service support ,
--- NOTE | 2020-10-09 09:26 | CDU_ITS ---
Reason For Study: Dizziness Rt. Velocities/BP Lt. Velocities/BP Prox CCA 64/12 cm/sec. Prox CCA 89/17 cm/sec. Mid CCA 62/15 cm/sec. Mid CCA 72/17 cm/sec. Dist CCA 56/15 cm/sec. Dist CCA 67/18 cm/sec. Prox ICA 58/15 cm/sec. Prox ICA 38/12 cm/sec. Mid ICA 52/15 cm/sec. Mid ICA 52/22 cm/sec. Dist ICA 46/19 cm/sec. Dist ICA 83/25 cm/sec. Rt. ICA/CCA = 0.9. Lt. ICA/CCA = 1.1. Prox ECA 97/15 cm/sec. Prox ECA 80/10 cm/sec. Rt. Vert. 37/12 cm/sec. Lt. Vert. 60/19 cm/sec. Right Extracranial There is no significant atherosclerotic plaque noted in the right common carotid artery. There is no significant atherosclerotic plaque noted in the right internal carotid artery. There is no significant atherosclerotic plaque noted in the right external carotid artery. Antegrade flow is noted in the right vertebral artery. Left Extracranial There is no significant atherosclerotic plaque noted in the left common carotid artery. There is no significant atherosclerotic plaque noted in the left internal carotid artery. There is no significant atherosclerotic plaque noted in the left external carotid artery. Antegrade flow is noted in the left vertebral artery. Procedure Carotid Duplex [id number]. Exam performed in department. VL/Carotid Duplex Ultrasound Interpretation Summary Mild (<50%) stenosis right extracranial internal carotid. Mild (<50%) stenosis left extracranial internal carotid. Flow within the vertebral arteries is antegrade bilaterally. Ordering Physician: Fatmata Bains Referring Physician: Fatmata Bains Performed By: Sanjuana Ricks, AARON, RVT
--- NOTE | 2020-10-09 09:26 | ECHOCS_ITS ---
Reason For Study: SOB Procedure This was a 2D Doppler, Color Flow transthoracic echocardiogram. Technically difficult study due to patients body habitus. Contrast injection was performed. Exam performed in department. Left Ventricle Normal LV size. The estimated ejection fraction is 60 %. No evidence for diastolic dysfunction. No regional wall motion abnormalities noted. Right Ventricle Normal RV size. Normal systolic function. Atria Normal left atrium. Normal right atrium. No doppler evidence for ASD. Mitral Valve No significant mitral valve stenosis. No mitral valve insufficiency. Tricuspid Valve There is no tricuspid stenosis. Unable to estimate RV systolic pressure due to insufficient tricuspid regurgitant envelope. No tricuspid valve insufficiency. Aortic Valve Trisinus/trileaflet aortic valve. There is no aortic stenosis. No aortic valve insufficiency. Pulmonic Valve There is no pulmonic valvular stenosis. No pulmonic valve insufficiency. Great Vessels Normal aortic root. Pericardium/Pleural No pericardial effusion. Medication 22 gauge I.V. with prn adaptor inserted into left arm. Diluted definity 4ml given slow IV push to enhance endocardial definition. MMode/2D Measurements & Calculations LVIDd: 4.7 cm IVSd: 0.88 cm Ao root diam: 3.6 cm LVIDs: 3.1 cm LVPWd: 0.83 cm LA dimension: 3.3 cm FS: 34.3 % LAV(MOD-sp4): 23.3 ml LA A4 area: 11.1 cm2 Time Measurements MV dec time: 0.25 sec Doppler Measurements & Calculations MV E max jonathan: 50.0 cm/sec Lat Peak E' Jonathan: 7.4 cm/sec Med Peak E' Jonathan: 7.3 cm/sec MV A max jonathan: 66.0 cm/sec E/E' lat: 6.8 E/E' med: 6.9 MV E/A: 0.76 MV V2 max: 70.1 cm/sec MV P1/2t max jonathan: 49.6 cm/sec Ao V2 max: 117.7 cm/sec MV max P.0 mmHg MV P1/2t: 63.4 msec Ao max P.5 mmHg MV V2 mean: 35.2 cm/sec MV dec slope: 229.1 cm/sec2 MV mean P.60 mmHg MV V2 VTI: 16.4 cm MVA(P1/2t): 3.5 cm2 LV V1 max: 112.6 cm/sec PA V2 max: 78.0 cm/sec LV V1 max P.1 mmHg ECHO/Echo Complete W/ Contrast Interpretation Summary The estimated ejection fraction is 60 %. No evidence for diastolic dysfunction. The study was technically difficult. Contrast injection was performed. Ordering Physician: Fatmata Bains Referring Physician: Fatmata Bains Performed By: Darshan Hinds RCS
== END ==
PROVIDERS: PCP Internal Medicine; Referring Provider Internal Medicine; Visit Provider Internal Medicine
DX: R06.02 Shortness of breath (principal); R42 Dizziness and giddiness
CPT/HCPCS: 76536; 93306; 93880; Q9957; A4216; C8929

== ENCOUNTER → 2021-01-17 15:01 | Outpatient (CLI) | payer MEDICARE, SELFPAY ==
[2021-01-17 15:33] LABS: International Normalized Ratio 1.7; Prothrombin Time (Protime)PT. 19.3 SECONDS (11.7-14.9)
== END ==
PROVIDERS: PCP Internal Medicine; Referring Provider Internal Medicine; Visit Provider Internal Medicine
DX: D68.62 Lupus anticoagulant syndrome (principal)
CPT/HCPCS: 85610

== ENCOUNTER → 2021-02-02 15:06 | Outpatient (CLI) | payer MEDICARE, SELFPAY ==
[2021-02-02 15:23] LABS: Absolute Lymphocyte Count 0.89 X10^3/uL (0.83-4.51); Absolute Neutrophil Count 4.1 X10^3/uL (2.0-7.7); Basophil# 0.07 X10^3/uL; Basophil% 1.1 % (0-1); Eosinophil# 0.26 X10^3/uL; Eosinophils% 4.1 % (0-5); Hematocrit 31.4 % (37-47); Hemoglobin 9.6 g/dL (12.0-15.0); Lymphocyte # 0.89 X10^3/ul (0.83-4.51); Lymphocyte % 14.1 % (19-41); Mean Corp Hgb Conc 30.6 g/dL (32-36); Mean Corpuscular Hgb 26.6 pg (27.0-32.0); Mean Platelet Vol. 10.1 fl (6.2-12.0); Monocyte# 0.95 X10^3/uL; NRBC Flagged by Analyzer 0 % (0-5); Neutrophil # 4.12 X10^3/uL (2.7-7.7); Neutrophil % 65.2 % (47-70); Platelet Count 491 K/mm3 (150-450); RBC Distribution Width CV 15.9 % (11.6-14.6); RBC Distribution Width SD 50.7 fl (35.1-43.9); Red Blood Count 3.61 M/mm3 (4.2-5.4); White Blood Count 6.3 K/mm3 (4.4-11.0)
== END ==
PROVIDERS: PCP Internal Medicine; Visit Provider Internal Medicine
DX: R32 Unspecified urinary incontinence (principal)
CPT/HCPCS: 85025

== ENCOUNTER → 2021-04-20 14:56 | Outpatient (CLI) | payer MEDICARE, SELFPAY ==
[2021-04-20 15:12] LABS: Absolute Lymphocyte Count 1.12 X10^3/uL (0.83-4.51); Absolute Neutrophil Count 6.6 X10^3/uL (2.0-7.7); Eosinophils% 4.2 % (0-5); Hematocrit 42.1 % (37-47); Hemoglobin 12.3 g/dL (12.0-15.0); Lymphocyte # 1.12 X10^3/ul (0.83-4.51); Lymphocyte % 11.6 % (19-41); Mean Corp Hgb Conc 29.2 g/dL (32-36); Mean Corpuscular Hgb 25.7 pg (27.0-32.0); Mean Corpuscular Volume 87.9 fL (81-99); Mean Platelet Vol. 10.2 fl (6.2-12.0); Monocyte# 1.34 X10^3/uL; Monocyte% 13.9 % (0-10); NRBC Flagged by Analyzer 0 % (0-5); Neutrophil # 6.62 X10^3/uL (2.7-7.7); Neutrophil % 68.8 % (47-70); Platelet Count 425 K/mm3 (150-450); RBC Distribution Width SD 51.6 fl (35.1-43.9); Red Blood Count 4.79 M/mm3 (4.2-5.4); White Blood Count 9.6 K/mm3 (4.4-11.0)
[2021-04-20 15:24] LABS: International Normalized Ratio 2.1; Prothrombin Time (Protime)PT. 22.7 SECONDS (11.7-14.9)
[2021-04-20 15:27] LABS: ALB/GLOB Ratio 0.7 RATIO (0.9-2.4); AST(SGOT) 35 U/L (15-37); Alanine Aminotransfer ALT/SGPT 35 U/L (13-56); Albumin, Serum 2.7 g/dL (3.2-5.0); Alkaline Phosphatase 273 U/L (45-117); Anion Gap 8 (5-15); BUN 7 mg/dL (7-18); BUN/Creat Ratio 7.9 RATIO (10-20); Calcium,Total 9.1 mg/dL (8.5-10.1); Chloride 108 mmol/L (98-107); Creatinine, Serum 0.88 mg/dL (0.55-1.02); EST Glomerular Filtration Rate 69 mL/min (>60); Est Glom Filt Rate - Afr Amer 84 mL/min (>60); Globulin 3.8 g/dL (2.2-4.2); Glucose 88 mg/dL (74-106); Potassium 3.6 mmol/L (3.5-5.1); Protein, Total 6.5 g/dL (6.4-8.2); Sodium Level 143 mmol/L (136-145)
== END ==
PROVIDERS: PCP Internal Medicine; Visit Provider Internal Medicine
DX: E78.49 Other hyperlipidemia (principal); I10 Essential (primary) hypertension
CPT/HCPCS: 80053; 85025; 85610

== ENCOUNTER → 2021-05-30 15:37 | Outpatient (CLI) | payer MEDICARE, SELFPAY ==
--- NOTE | 2021-05-30 16:04 | CT_ITS ---
EXAM: CT ANGIOGRAPHY CHEST, ABDOMEN AND PELVIS WITH INTRAVENOUS CONTRAST CLINICAL INDICATION: THORACIC AAA TECHNIQUE: Helically acquired angiography images were obtained of the chest, abdomen and pelvis with intravenous contrast. This CT exam was performed using one or more of the following dose reduction techniques: automated exposure control, adjustment of the mA and/or kV according to patient size, and/or use of iterative reconstruction technique. This report was created using [employer] report generation technology. MIP reconstructed images were created and reviewed. CONTRAST: IV 100mL Isovue-370 COMPARISON: 02.03.19 and 12.21.19 has no images. 07.17.18 ct chest FINDINGS: VASCULATURE: AORTA: There are calcifications of the abdominal aorta. This is consistent for atherosclerotic disease. There is no abdominal aortic aneurysm. No dissection. PULMONARY ARTERIES: No demonstrated pulmonary embolism or arterial dissection. GREAT VESSELS OF AORTIC ARCH: Unremarkable. Normal in caliber. No dissection. CELIAC TRUNK AND MESENTERIC ARTERIES: No acute findings. No occlusion or significant stenosis. No dissection. RENAL ARTERIES: No acute findings. No occlusion or significant stenosis. No dissection. ILIAC ARTERIES: No acute findings. No occlusion or significant stenosis. No dissection. CHEST: LUNGS AND PLEURAL SPACES: Postsurgical changes in the right upper lobe. No mass. No pleural effusion or thickening. No pneumothorax. HEART: Unremarkable. Heart size is normal. No pericardial effusion. MEDIASTINUM: Unremarkable. No mediastinal or hilar adenopathy. Esophagus is unremarkable. No hiatal hernia. THYROID: Unremarkable. No thyroid lesions. ABDOMEN: LIVER: Unremarkable. Homogeneous. No focal mass. GALLBLADDER AND BILE DUCTS: The gallbladder is surgically absent. No intra- or extrahepatic biliary ductal dilation. PANCREAS: Unremarkable. No focal cystic or solid mass. SPLEEN: Unremarkable. Normal size without focal cystic or solid mass. ADRENALS: Unremarkable. No nodules. KIDNEYS AND URETERS: Unremarkable. Normal renal size and position. No hydronephrosis. STOMACH AND BOWEL: There is an umbilical hernia containing fat. There is no bowel involvement. There is no incarceration. There is no findings suggesting that this is causing a bowel obstruction. No focal inflammatory change. PELVIS: APPENDIX: No evidence of acute appendicitis. BLADDER: Unremarkable. REPRODUCTIVE: The uterus is not visualized and is most likely surgically absent. CHEST, ABDOMEN and PELVIS: INTRAPERITONEAL SPACE: Unremarkable. No ascites or other fluid collection. No free air. BONES/JOINTS: Total right shoulder arthroplasty. Total bilateral hip arthroplasty. Healed left pubic bone fractures. There is scoliosis of the lumbar spine. No suspicious lytic or blastic abnormality. SOFT TISSUES: See above. LYMPH NODES: Unremarkable. No enlarged lymph nodes. CT/CTA Chst, Abd, Pel W and/or WO IMPRESSION: No demonstrated pulmonary embolism or arterial dissection. Electronically Signed: Stewart Lizama MD at 17:48 EST , Service support ,
[2021-05-30 16:06] LABS: CREATININE FINGERSTICK 0.7 mg/dL (0.55-1.02); EGFR FINGERSTICK > 60.0000 mL/min (>60)
== END ==
PROVIDERS: PCP Internal Medicine; Referring Provider Internal Medicine; Visit Provider Internal Medicine
DX: I71.4 Abdominal aortic aneurysm, without rupture (principal)
CPT/HCPCS: 71275; 74174; Q9967

== ENCOUNTER 2021-09-18 22:57 | Inpatient (IN) | payer MEDICARE, SELFPAY ==
[2021-09-18 22:57] VITALS: BP 148/89; PULSE 92; RESP 16; TEMP 36.6; O2SAT 100; BMI 44.2
--- NOTE | 2021-09-18 23:31 | EX.ED.DYSGE1 ---
HPI History of Present Illness Chief Complaint: Weakness Detail of Chief Complaint: weakness, Informant: patient and PCP Onset/Context/Timing Onset: Month(s) (1+) Quality: weakness Location: all over Current Severity: Severe Maximum Severity: Severe Narrative Narrative: Patient has had multiple revisions of a total hip arthroplasty on the right all done at [facility] by Dr. Contreras. Her surgery was complicated by infection at 1 point, which is why she needed multiple revisions, the last of which was done just over 1 month ago. She has been feeling extremely weak and tired ever since. She had labs done on 09/06 which was 12 days ago, her chemistries were normal, her INR was up a little and her hemoglobin was 10.3. Last week she had flulike symptoms with fevers, chills, myalgias, cough, nausea with one episode of emesis, and headaches. She did a Covid test that was negative. All of the symptoms are better now except she still feels extremely weak and tired. She has a very minor residual cough. Earlier today she coughed up a plug of mucus and has been coughing less and feeling better otherwise ever since. Today she saw her PCP and had labs repeated. They show acute renal failure with creatinine of 3.44, BUN 39 and an EGFR of 14 all of which is new. Her sodium is 130, bicarb 16, the other electrolytes are normal. Additionally, her INR is 4.9, she is on warfarin because of a history of antiphospholipid antibody syndrome, she has multiple elevated LFTs with AST 476, ALT 321, alkaline phosphatase 384, GGT 1563 with a normal bilirubin total at 0.5. Patient states she did have a nephrology consult once when she was admitted to [facility] for renal insufficiency but it was thought most likely related to the fact that she was septic due to her septic hip. She does not see nephrology as an outpatient now. [facility] Medical History (Updated 09/19/21 @ 00:[address] 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, arteries, femoral Home Medications cholecalciferol (vitamin D3) [Vitamin D] 1,000 unit PO DAILY 05/09/15 [History Last Taken Unknown] cyanocobalamin (vitamin B-12) 1,000 mcg PO DAILY@0800 05/09/15 [History Last Taken Unknown] morphine [Solange] 20 mg PO BID 05/09/15 [History Last Taken Unknown] omeprazole 20 mg PO DAILY 05/09/15 [History Last Taken Unknown] prednisone 20 mg PO DAILY 05/09/15 [History Last Taken Unknown] duloxetine 60 mg PO QHS 08/21/16 [History Last Taken Unknown] ipratropium bromide [Atrovent (SP)] 1 puff INHALATION PRN PRN 08/21/16 [History Last Taken Unknown] diltiazem HCl [Cardizem] 360 mg PO DAILY 09/06/16 [History Last Taken Unknown] Coumadin 5 mg PO DAILY 02/06/17 [History Last Taken Unknown] amitriptyline 10 mg PO DAILY 03/09/18 [History Last Taken Unknown] buspirone 5 - 10 mg PO DAILY 09/18/21 [History Last Taken Unknown] ciprofloxacin HCl 750 mg PO BID 09/18/21 [History Last Taken Unknown] doxycycline monohydrate 100 mg PO BID 09/18/21 [History Last Taken Unknown] lactobacillus combination no.4 [Probiotic] 3,000 mmu cells PO DAILY 09/18/21 [History Last Taken Unknown] oxycodone 5 - 10 mg PO BID 09/18/21 [History Last Taken Unknown] Allergy/AdvReac Type Severity Reaction Status Date / Time abatacept [From Orencia] Allergy Other Verified 09/18/21 23:39 celecoxib [From Celebrex] Allergy Hives Verified 09/18/21 23:39 golimumab [From Simponi] Allergy Other Verified 09/18/21 23:39 infliximab [From Remicade] Allergy Rash Verified 09/18/21 23:39 rituximab [From Rituxan] Allergy Anaphylaxis Verified 09/18/21 23:39 rofecoxib [From Vioxx] Allergy Hives Verified 09/18/21 23:39 shellfish derived Allergy Hives Verified 09/18/21 23:39 adalimumab [From Humira] AdvReac Other Verified 09/18/21 23:39 hydroxychloroquine sulfate AdvReac Other Verified 09/18/21 23:39 [From Plaquenil] latex AdvReac Rash Verified 09/18/21 23:39 Surgical History (Updated 09/18/21 @ 23:38 by Jacqueline Pearson) History of left hip replacement S/P cervical spinal fusion S/P total right hip arthroplasty Social History Smoking Status: Never smoker ROS ROS ED Constitutional Constitutional ED: Reports fatigue and weakness; Denies chills or fever(s) Eyes Eyes: Denies change in vision or diplopia ENT ENT ED: Denies rhinorrhea or sore throat Cardiovascular Cardiovascular: Reports pedal edema; Denies chest pain, orthopnea or palpitations Respiratory/Chest Respiratory/Chest: Reports cough; Denies dyspnea or orthopnea Gastrointestinal Gastrointestinal: Reports bloating; Denies abdominal pain, diarrhea, nausea or vomiting Genitourinary Genitourinary ED: Denies dysuria or hematuria Musculoskeletal Musculoskeletal: Denies back pain or neck pain Integumentary Denies abscess or rash Neurologic Neurologic: Denies headache(s), paresthesias or weakness Psychiatric Psychiatric: Denies anxiety or suicidal thoughts EXAM Physical Exam Const Vital Signs: 09/18/21 22:57 Temperature 97.8 F Temperature Source Temporal Pulse Rate 92 Respiratory Rate 16 Blood Pressure 148/89 H Blood Pressure Mean 108 Pulse Ox 100 Oxygen Delivery Method Room Air Positive well nourished, well developed and obese General Appearance ED: well developed and NAD Nutritional Appearance: obese HEENT Reports moist mucous membranes normocephalic and atraumatic Eyes PERRL and EOMs intact bilaterally Neck full ROM and supple Resp normal respiratory effort and clear to auscultation bilaterally Cardio regular rate, regular rhythm and no murmurs Rate: Negative for tachycardic GI non-tender and non-distended Auscultation: normoactive bowel sounds Palpation: soft Back/Spine no CVA tenderness General Back: other FROM Extremity normal to inspection General Extremety ED: Yes edema; Negative for pulses abnormal or tenderness General Extremity: edema bilateral lower extremity Details: moderate (Symmetric pitting); Negative for pulses abnormal Neuro oriented x3, CN's II-XII intact bilaterally and no sensory deficits noted Sensorium / Orientation: awake and alert Motor Exam: strength 5/5 throughout Skin no rashes or lesions noted and no wounds MDM MDM MDM Narrative Medical decision making narrative: Patient is clinically and hemodynamically stable. Were able to review of her labs from today in addition to the normal chemistries that she had almost 2 weeks ago, discussed this with hospitalist for admission. Her INR is elevated, and since she is having no significant bleeding, at this time all that is indicated is watching it and holding her warfarin according to the current chest guidelines. Her acute renal failure is probably related to this. I did review her potassium which was drawn earlier today and 5.0 which is within normal limits still, and her hemoglobin is actually a little higher than it was 2 weeks ago at 10.5. She has had no symptoms of GI bleeding. Discharge Plan Dx/Rx/DC Orders Clinical Impression: Acute renal failure, Elevated liver enzymes, Supratherapeutic INR Disposition Disposition: Acute Care [facility]
[2021-09-19] VITALS (10 sets, daily range): BP systolic 116–139; BP diastolic 66–94; PULSE 76–84; RESP 13–19; TEMP 36.6–38.1; O2SAT 98–100; BMI 44.0
--- NOTE | 2021-09-19 00:16 | HP.PCM.HOS_ITS ---
HPI - General General Date of Admission: 09/19/21 HPI Narrative JOSAFAT JEFFRIES, is a 61 F with a significant history of rheumatoid arthritis, rheumatoid lungs on prednisone therapy; antiphospholipid antibody syndrome; aortic mural thrombus; septic joint with multiple revisions who pr esents to the emergency department with abnormal labs. Patient's liver enzymes, GGT and a creatinine was elevated outpatient so patient was sent to the emergency department for further evaluation. Also patient reported that since July she has been progressively weak. Also she report that she feels foggy in her head. She had a flulike symptoms about a week ago and was started empirically on Tamiflu. Home COVID test at that time was negative. She reports anorexia Of note patient had her last hip surgery in July 2021 at [facility]. All her right hip surgeries has been at [facility]. Reportedly her first hip surgery was in October 2020. At that time she had a septic joint and septic shock. Patient reports that recently her INR has been elevated and she received vitamin K. Patient is on chronic ciprofloxacin and doxycycline for life secondary to septic joints. Also she is on Diflucan that she is supposed to be on for 6 months. Diflucan was started on July 25, 2021 [facility] Medical History (Updated 09/19/21 @ 02:02 by Vickie Ramirez) Anemia Antiphospholipid antibody syndrome Anxiety Aortic mural thrombus Cervical myelopathy Depression Diabetes FH: total knee replacement Hypertension Kidney disease Kidney stones Non-pressure chronic ulcer of skin of other sites with fat layer exposed Osteoporosis Rheumatoid arthritis Rheumatoid idiopathic pulmonary fibrosis Thrombosis, arteries, femoral TIA (transient ischemic attack) Home Medications cholecalciferol (vitamin D3) [Vitamin D] 1,000 unit PO DAILY 05/09/15 [History Last Taken Unknown] cyanocobalamin (vitamin B-12) 1,000 mcg PO DAILY@0800 05/09/15 [History Last Taken Unknown] morphine [Solange] 20 mg PO BID 05/09/15 [History Last Taken Unknown] omeprazole 20 mg PO DAILY 05/09/15 [History Last Taken Unknown] prednisone 20 mg PO DAILY 05/09/15 [History Last Taken Unknown] duloxetine 60 mg PO QHS 08/21/16 [History Last Taken Unknown] ipratropium bromide [Atrovent (SP)] 1 puff INHALATION PRN PRN 08/21/16 [History Last Taken Unknown] diltiazem HCl [Cardizem] 360 mg PO DAILY 09/06/16 [History Last Taken Unknown] Coumadin 5 mg PO DAILY 02/06/17 [History Last Taken Unknown] amitriptyline 10 mg PO DAILY 03/09/18 [History Last Taken Unknown] buspirone 5 - 10 mg PO DAILY 09/18/21 [History Last Taken Unknown] ciprofloxacin HCl 750 mg PO BID 09/18/21 [History Last Taken Unknown] doxycycline monohydrate 100 mg PO BID 09/18/21 [History Last Taken Unknown] lactobacillus combination no.4 [Probiotic] 3,000 mmu cells PO DAILY 09/18/21 [History Last Taken Unknown] oxycodone 5 - 10 mg PO BID 09/18/21 [History Last Taken Unknown] Allergy/AdvReac Type Severity Reaction Status Date / Time abatacept [From Orencia] Allergy Other Verified 09/18/21 23:39 celecoxib [From Celebrex] Allergy Hives Verified 09/18/21 23:39 golimumab [From Simponi] Allergy Other Verified 09/18/21 23:39 infliximab [From Remicade] Allergy Rash Verified 09/18/21 23:39 rituximab [From Rituxan] Allergy Anaphylaxis Verified 09/18/21 23:39 rofecoxib [From Vioxx] Allergy Hives Verified 09/18/21 23:39 shellfish derived Allergy Hives Verified 09/18/21 23:39 adalimumab [From Humira] AdvReac Other Verified 09/18/21 23:39 hydroxychloroquine sulfate AdvReac Other Verified 09/18/21 23:39 [From Plaquenil] latex AdvReac Rash Verified 09/18/21 23:39 Family History Other Cancer Surgical History History of appendectomy History of cholecystectomy History of left hip replacement S/P cervical spinal fusion S/P total right hip arthroplasty Social History Smoking Status: Never smoker ROS ROS Narrative Pertinent positives and pertinent negatives as noted in HPI. All other systems were reviewed and are negative. Vital Signs Vital Signs Vital Signs: 09/18/21 22:57 Temperature 97.8 F Temperature Source Temporal Pulse Rate 92 Respiratory Rate 16 Blood Pressure 148/89 H Blood Pressure Mean 108 Pulse Ox 100 Oxygen Delivery Method Room Air Weight Weight: 113.398 kg Body Mass Index (BMI) 44.2 Physical Exam Narrative Physical exam: General: Well-nourished, well-developed. Head: Normocephalic, atraumatic, no tenderness Eyes: Vision is grossly intact. EOMI ENT, no trauma, dry mucous membranes, no rhinorrhea Neck: Nontender, full range of motion, no spinal tenderness, deformities, step- off CVS: Regular rate and rhythm. S1-S2 present. No murmur, gallop or rub. Respiratory : clear to auscultation bilaterally, chest wall nontender, no wheezing Abdomen: Soft, nontender, nondistended, normal bowel sounds, no masses : Deferred Back: Nontender, no CVA tenderness, no midline spinal tenderness, deformities, step-offs Extremities: Nontender full range of motion, no trauma Skin: Healed incision at the right hip. Normal color, no trauma, abrasions Neuro: Alert, oriented, cranial nerves II through XII grossly intact. Psychiatry: Depressed affect. Not anxious. Assessment & Plan Assessment/Plan (1) ADRIÁN (acute kidney injury): (2) Elevated liver enzymes: (3) Supratherapeutic INR: PLAN: ADRIÁN Per review of community records her BUN on 09/06/2021 was 11. Creatinine was 0.90. Test was performed at [facility]. A CMP performed at [facility] on 09/18/2021 showed creatinine of 3.44; BUN of 39. CT of abdomen pelvis ordered. Check urine electrolytes. Nephrology consult. Gentle IV hydration. Elevated liver enzymes Community records on 09/06/2021 was reviewed. At that time her alkaline phosphatase was 195 (normal 32-126); ALT was 31; AST was 27. Test was performed at [facility]. CMP performed at [facility] on 09/18/2021 showed alkaline phosphatase of 384; AST of 476; ALT of 321. Trend CMP. CT of the abdomen pelvis as above. Check acute hepatitis panel Elevated INR INR on 09/18/2021 was 4.9. PT was 57.7. Test was performed at [facility]. Of note patient received vitamin K recently. She has been off her Coumadin. Trend INR. Continue hold Coumadin for now. Anemia Hemoglobin on 09/19/[address] [facility] showed a level of 10.5. MCV was 77. Iron level 79 (normal 35-150) TIBC 375 (normal 240 to 445); percentage saturation 21 (normal 25-41). Trend CBC Fever While patient's was at [facility] her temperature increased to 100.5 Fahrenheit. Will check blood cultures. As needed Tylenol ordered. DVT prophylaxis SCD ordered Charges/Coding Visit Charges Inpatient E&M: 97212 Init Hosp L3
--- NOTE | 2021-09-19 01:44 | CT_ITS ---
EXAM: CT ABDOMEN AND PELVIS WITHOUT INTRAVENOUS CONTRAST CLINICAL INDICATION: kidney injury TECHNIQUE: Helically acquired images were obtained of the abdomen and pelvis without intravenous contrast. DLP: 1340.38 mGy-cm and CTDI: 24.[address] exam was performed using one or more of the following dose reduction techniques: automated exposure control, adjustment of the mA and/or kV according to patient size, and/or use of iterative reconstruction technique. This report was created using [employer] report generation technology. COMPARISON: CTA of 05/30/2021. FINDINGS: LOWER THORAX: Bands of discoid atelectasis and/or scarring noted within the lower lungs. No basilar pneumonia or pleural effusion. No cardiomegaly. ABDOMEN: LIVER: Visualized liver is unremarkable on this nonenhanced scan. GALLBLADDER AND BILE DUCTS: Cholecystectomy. No biliary ductal dilatation or calcified common duct stone. PANCREAS: Visualized pancreas is unremarkable on this nonenhanced scan. No focal cystic mass. SPLEEN: Visualized spleen is unremarkable on this nonenhanced scan. ADRENALS: Unremarkable. No nodules. KIDNEYS AND URETERS: Kidneys remain normal in size and shape. No renal subcapsular hematoma is identified. No hydronephrosis or obstructing ureteral stone identified; the distal ureters and bladder are partially obscured by streak artifact from the bilateral hip replacements. STOMACH AND BOWEL: Stomach is decompressed. No periduodenal inflammatory changes or distended small bowel loops. Wall of the distal descending colon is mildly thickened, possibly due to adherent fecal material as there is no pericolonic stranding to indicate a colitis. No findings to diverticulitis or small bowel obstruction. PELVIS: APPENDIX: Appendix is not visualized. BLADDER: Partially obscured by streak artifact. REPRODUCTIVE: Uterus is not visualized. No adnexal mass identified. ABDOMEN and PELVIS: INTRAPERITONEAL SPACE: Unremarkable. No ascites or other fluid collection. No free air. BONES/JOINTS: Multilevel thoracolumbar degenerative disc disease. No suspicious lytic or blastic abnormality. Old fracture of the left inferior pubic ramus. No acute fracture identified. SOFT TISSUES: Streak artifact arises from bilateral total hip prostheses; there is been interval revision of the right hip prosthesis with a broad band of hematoma and bubbles of subcutaneous emphysema overlying the prosthesis. No discrete abdominal or pelvic wall hernia. VASCULATURE: Minimally calcific abdominal aorta. No AAA. LYMPH NODES: Unremarkable. No enlarged lymph nodes. CT/Abdomen/Pelvis without Cont IMPRESSION: Subcutaneous hematoma and bubbles of subcutaneous emphysema overlying the right hip due to interval revision of right hip prosthesis. No acute intra-abdominal abnormality identified. No acute renal abnormality identified on this nonenhanced scan. Electronically Signed: Khoa Casas MD at 4:58 EDT ,
[2021-09-19] MEDS: 0.9% Normal Saline 1,000 ML 100 ML IV ×3 (02:12→22:02)
[2021-09-19] MEDS: Ondansetron 4 MG/2 ML Vial IV ×2 (02:12→18:12)
[2021-09-19] MEDS: Acetaminophen 325 MG Tablet 650 MG PO (03:18)
[2021-09-19 04:22] LABS: Absolute Lymphocyte Count 0.48 X10^3/uL (0.83-4.51); Absolute Neutrophil Count 7.8 X10^3/uL (2.0-7.7); Basophil# 0.03 X10^3/uL; Basophil% 0.3 % (0-1); Eosinophil# 0.03 X10^3/uL; Eosinophils% 0.3 % (0-5); Hematocrit 30.5 % (37-47); Hemoglobin 9.2 g/dL (12.0-15.0); Lymphocyte # 0.48 X10^3/ul (0.83-4.51); Lymphocyte % 5.2 % (19-41); Mean Corp Hgb Conc 30.2 g/dL (32-36); Mean Corpuscular Hgb 24.1 pg (27.0-32.0); Mean Corpuscular Volume 80.1 fL (81-99); Mean Platelet Vol. 9.4 fl (6.2-12.0); Monocyte# 0.81 X10^3/uL; Monocyte% 8.8 % (0-10); NRBC Flagged by Analyzer 0 % (0-5); Neutrophil # 7.77 X10^3/uL (2.7-7.7); Neutrophil % 84.4 % (47-70); POSITIVE DIFFERENTIAL YES; Platelet Count 399 K/mm3 (150-450); RBC Distribution Width CV 18.3 % (11.6-14.6); RBC Distribution Width SD 53.1 fl (35.1-43.9); Red Blood Count 3.81 M/mm3 (4.2-5.4); White Blood Count 9.2 K/mm3 (4.4-11.0)
[2021-09-19 04:23] LABS: Differential Indicated SCAN CRITERIA MET
[2021-09-19 04:31] LABS: International Normalized Ratio 2.8; Prothrombin Time (Protime)PT. 28.7 SECONDS (11.7-14.9)
[2021-09-19 04:39] LABS: Anisocytosis 1+; Differential Comment SCANNED; Microcytosis 1+
[2021-09-19 04:53] LABS: ALB/GLOB Ratio 0.7 RATIO (0.9-2.4); AST(SGOT) 786 U/L (15-37); Alanine Aminotransfer ALT/SGPT 405 U/L (13-56); Albumin, Serum 2.7 g/dL (3.2-5.0); Alkaline Phosphatase 417 U/L (45-117); Anion Gap 7 (5-15); BUN 41 mg/dL (7-18); BUN/Creat Ratio 12.9 RATIO (10-20); Calcium,Total 8.9 mg/dL (8.5-10.1); Chloride 109 mmol/L (98-107); Creatinine, Serum 3.18 mg/dL (0.55-1.02); EST Glomerular Filtration Rate 16 mL/min (>60); Est Glom Filt Rate - Afr Amer 19 mL/min (>60); Estimated Creatinine Clearance 14.51 ml/min; Globulin 3.7 g/dL (2.2-4.2); Glucose 151 mg/dL (74-106); Potassium 5.7 mmol/L (3.5-5.1); Protein, Total 6.4 g/dL (6.4-8.2); Sodium Level 135 mmol/L (136-145)
[2021-09-19] MEDS: Menthol/Lanolin/Calamine/Znox 113 GM Tube 1 APPLIC TOPICAL ×3 (05:38→21:05)
[2021-09-19] MEDS: Heparin Injection (Vial) 5,000 UNIT/ML VIAL 5000 UNIT SC (05:38)
[2021-09-19] MEDS: busPIRone 5 MG Tablet PO (07:59)
[2021-09-19] MEDS: predniSONE 20 MG Tablet PO (07:59)
[2021-09-19] MEDS: Cyanocobalamin 500 MCG Tablet 1000 MCG PO (07:59)
[2021-09-19] MEDS: Amitriptyline 10 MG Tablet PO (08:02)
[2021-09-19] MEDS: Doxycycline 100 MG CAPSULE PO ×2 (08:02→20:57)
[2021-09-19] MEDS: Pantoprazole Sodium 20 MG Tablet PO (08:02)
[2021-09-19] MEDS: Ciprofloxacin 500 MG Tablet 750 MG PO ×2 (08:02→20:58)
[2021-09-19] MEDS: Cholecalciferol (VIT D3) 25 MCG TABLET (1,000 UNITS) PO (08:03)
[2021-09-19] MEDS: oxyCODONE 5 MG Tablet PO (09:58)
--- NOTE | 2021-09-19 10:16 | CASEMGMT ---
CARINA MCLAUGHLIN Assessment: Face to Face with pt for initial transition planning/care coordination assessment. CARINA MCLAUGHLIN introduced self and role at [facility], pt voices understanding and consents to assessment. Pt is A/O x4 and answers all questions appropriately at this time. Pt lying in bed in no distress. Care providers, pharmacy, and demographics verified/updated. Admitting Dx: ADRIÁN PCP:[facility] Specialists:Diane, ortho; Hannah, rheum; Zumbar, pain mgmt; Lipps, ID; Pulm- unsure of name Preferred Pharmacy: [facility] Insurance: [facility] Prescription Benefit: yes LW/HPOA: Pt states she has a LW/DPOA and her DPOA is her Fabiano Roper. She is aware this is not on file at [facility] and she may bring in to be scanned into her chart. LNOK: Fabiano Roper, ; Ela Roper, dtr Living Arrangements: Pt lives with in a single story house with 3 steps to enter with 2 handrails. Pt reports she needs assistance from her with bathing and dressing. She states he prepares meals, does laundry and cleans. She also has a principal software engineer every other week paid privately. Pt denies concerns at home. Transportation: Pt has not driven in 8 years d/t her RA. She states her transports her to medical appts. DME/HHC/SNF: Pt has an O2 concentrator. States she owns it and it is not through a company. Asked who initially provided it and pt does not know. She states it was not [facility]. Pt also has a portable concentrator. She states she uses 2L at [facility] PRN. Pt has a CPAP but does not wear. She also has a quad cane, w/c, walker, rollator (which is what she uses) and shower chair. Pt is current with [facility] in [place]. TC to them and they do not have pt on census. Back into pt room and she states it is [facility]. TC to [facility] who confirms pt is active with PT and SN. Pt denies SNF stays. Pt states no concerns with going home at time of dc. Pt states no further concerns/needs. CM to follow. Advised pt to ask CM if any further question/concerns/needs arise, voices understanding. Pt Goal: Home with resumption of HHC Plan: Home with resumption of [facility] [phone] [facility] [phone]
--- NOTE | 2021-09-19 10:50 | PN.HOSP_ITS ---
Subjective Subjective Feels well. Denies any right hip pain. Objective Data Objective Data Vital Signs: Vital Signs Temp Pulse Resp BP Pulse Ox 36.8 C 84 16 130/94 H 98 09/19/21 07:39 09/19/21 07:39 09/19/21 07:39 09/19/21 07:39 09/19/21 06:47 Oxygen Flow Rate (L/min) 98 Oxygen Delivery Method Room Air Weight: 112.8 kg Body Mass Index (BMI) 44.0 Intake & Output: Intake and Output for Last 24 Hours 09/17/21 09/18/21 09/19/21 23:59 23:59 23:59 Output Total 500 / 500 Balance -500 / -500 Lab / Micro Data Result Diagrams: 09/19/21 04:01 09/19/21 04:01 Labs: Laboratory Results - last 24 hr 09/19/21 04:01: WBC 9.2, RBC 3.81 L, Hgb 9.2 L, Hct 30.5 L, MCV 80.1 L, MCH 24.1 L, MCHC 30.2 L, RDW Std Deviation 53.1 H, RDW Coeff of Emily 18.3 H, Plt Count 399, MPV 9.4, Immature Gran % (Auto) 1.000 H, Neut % (Auto) 84.4 H, Lymph % (Auto) 5.2 L, [place] % (Auto) 8.8, Eos % (Auto) 0.3, Baso % (Auto) 0.3, Absolute Neuts (auto) 7.8 H, Absolute Lymphs (auto) 0.48 L, Nucleated RBC % 0, Differential Comment SCANNED, Anisocytosis 1+, Microcytosis 1+ 09/19/21 04:01: PT 28.7 H, INR 2.8 09/19/21 04:01: Sodium 135 L, Potassium 5.7 H, Chloride 109 H, Carbon Dioxide 19.0 L, Anion Gap 7, BUN 41 H, Creatinine 3.18 H, Estim Creat Clear Calc 14.51, Est GFR (MDRD) Af Amer 19 L, Est GFR (MDRD) Non-Af 16 L, BUN/Creatinine Ratio 12.9, Glucose 151 H, Calcium 8.9, Total Bilirubin 0.60, AST 786 H, ALT 405 H, Alkaline Phosphatase 417 H, Total Protein 6.4, Albumin 2.7 L, Globulin 3.7, Albumin/Globulin Ratio 0.7 L Radiography Diagnostic Testing: Radiology Impression Abdomen/Pelvis CT 09/19/21 01:44 IMPRESSION: Subcutaneous hematoma and bubbles of subcutaneous emphysema overlying the right hip due to interval revision of right hip prosthesis. No acute intra-abdominal abnormality identified. No acute renal abnormality identified on this nonenhanced scan. Electronically Signed: Khoa Casas MD at 4:58 EDT , Physical Exam Const alert and no apparent distress HEENT head/scalp atraumatic Head and Scalp: normocephalic Resp normal respiratory effort, no retractions, no use of accessory muscles and clear to auscultation bilaterally Cardio regular rate, regular rhythm, S1 normal heart sound and S2 normal heart sound GI normal to inspection, nondistended, normoactive bowel sounds, soft to palpation, non-tender and non-distended Extremity Extremity Narrative: Large scar over right lateral hip that is well-healed and approximated with no evidence of any dehiscence. Has diffuse skin discoloration of that area but no concern for any infection such as cellulitis. No tenderness to palpitation over the right hip. Neuro Sensorium / Orientation: awake and alert Assessment & Plan Assessment/Plan (1) ADRIÁN (acute kidney injury): (2) Elevated liver enzymes: (3) Supratherapeutic INR: PLAN: 1. ADRIÁN * Per review of community records her BUN on 09/06/2021 was 11. Creatinine was 0.90. Test was performed at [facility]. * A CMP performed at [facility] on 09/18/2021 showed creatinine of 3.44; BUN of 39. * Suspected prerenal due to decreased oral intake. * On IV fluids * Monitor * Could be iatrogenic. * Nephrology consulted 2. Elevated liver enzymes * Community records on 09/06/2021 was reviewed. At that time her alkaline phosphatase was 195 (normal 32-126); ALT was 31; AST was 27. Test was performed at [facility]. * CMP performed at [facility] on 09/18/2021 showed alkaline phospha tase of 384; AST of 476; ALT of 321. * Concern for iatrogenic * check US 3. Septic joint * has had numerous surgeries and prolonged hospitalizations involving this right hip. Patient last surgery require placement as well as reconstructive surgery. CAT scan showed hematoma as well as subcutaneous emphysema. On evaluation, there is no obvious clinical sign of decompensation. Anticipate patient had a very extensive surgery that has not had complete resolution. We will request the records and imaging from [facility] to compare. I do not feel that there is any clear indication to transfer the patient back to [facility] at this point in time. Discussed with the patient and she agrees. * Continue with ciprofloxacin doxycycline. The patient's LFTs continue to climb up may need to consider changing antibiotics altogether. Patient is on chronic apparently lifelong suppressive antibiotics. * Check culture results. I am concerned that patient may be having iatrogenic issues such as LFT elevation and acute kidney injury possibly related with the Cipro and doxycycline. 4. Anemia * Stable * hemoglobin on 09/19/2019 to perform at [facility] showed a level of 10.5. MCV was 77. * Iron level 79 (normal 35-150) TIBC 375 (normal 240 to 445); percentage saturation 21 (normal 25-41). Trend CBC 5. Fever * [facility]'s was [facility] her temperature increased to 100.5 Fahrenheit. Will check blood cultures. As needed Tylenol ordered. 6. Aortic mural thrombus * On warfarin 7. Rheumatoid arthritis * Prednisone Charges/Coding Procedures Hospitalists Procedures: Other Procedure - See Report (Nonbillable rounding as patient was admitted after midnight.)
[2021-09-19 12:03] LABS: Bacteria 0 SEEN /hpf (None Seen); Mucous, Urine 0 SEEN /hpf (<or=2+); Red Blood Cells-Urine 0 SEEN /hpf (0-5); White Blood Cells 0 SEEN /hpf (0-5)
[2021-09-19 12:11] LABS: Color, Urine Yellow (Yellow); Glucose, Dipstick Normal (Normal); Ketone-Dipstick Negative (Negative); Leukocyte Esterase-Dipstick Negative /ul (Negative); Nitrite-Dipstick Negative (Negative); Occult Blood-Urine Negative /ul (Negative); Protein-Dipstick 15 mg/dl (Negative); Urine Bilirubin Dipstick Negative (Negative); Urine Clarity Clear (Clear); Urine Urobilinogen Normal (Normal)
--- NOTE | 2021-09-19 12:11 | RAD.NOTE ---
assisted [employer] Marla with removal of rings at pt's request. yellow color ring w/ white stones able to be removed without using ring cutter. ring cutter used on white metal with clear stones at pt's request. all rings placed in container and remain in pt's possession. noted signficant edema and purple discoloration on the underside of finger. primary RN aware
[2021-09-19 12:17] LABS: Urine Sodium 63 mmol/L (Not Establ.)
[2021-09-19 12:43] LABS: Squamous Epithelial Cells - UA 0-5 SEEN /hpf (5-10)
[2021-09-19 12:50] LABS: Osmolality, Urine 270 mOsm/KG
--- NOTE | 2021-09-19 14:50 | CON.PCM.RE_ITS ---
Assessment & Plan Assessment/Plan (1) ADRIÁN (acute kidney injury): PLAN: Last known baseline creatinine from March 2021 was normal at 0.9. She had a creatinine of 3.4 last week down to 3.1 now. Urine analysis appears fairly benign. Abdominal imaging did not show any hydronephrosis. Denies taking NSAIDs. Other than the prednisone taper there is no other medications new. She tells me that her blood pressure has been low for the last 1 month at least. Etiology of this is unclear. No GI symptoms. No breathing problems. She has not been taking her diuretic. Continue fluids for now. HPI Consult Data Date of Consult: 09/19/21 HPI Narrative HPI Narrative: JOSAFAT JEFFRIES, is a 61 F who presents to the hospital with acute renal failure. Nephrology consulted for the same. She has somewhat extensive history, history of rheumatoid arthritis, positive for LILLI and CCP antibodies, lupus anticoagulant syndrome which was diagnosed many years ago, on anticoagulation with Coumadin. Rheumatoid arthritis involving the joints, lung. Developed allergic reactions to different immunosuppressants, currently takes prednisone only. Recently had hip surgery which got complicated and required multiple surgeries including reconstruction. Apparently blood pressure has been low since surgery from July. Urine output has been okay. Routine blood work drawn showed a creatinine of 3.4. Denies taking NSAIDs. No breathing difficulties. Recently increased prednisone and is on a taper around surgery time. [facility] Medical History (Updated 09/19/21 @ 02:02 by Vickie Ramirez) Anemia Antiphospholipid antibody syndrome Anxiety Aortic mural thrombus Cervical myelopathy Depression Diabetes FH: total knee replacement Hypertension Kidney disease Kidney stones Non-pressure chronic ulcer of skin of other sites with fat layer exposed Osteoporosis Rheumatoid arthritis Rheumatoid idiopathic pulmonary fibrosis Thrombosis, arteries, femoral TIA (transient ischemic attack) Home Medications cholecalciferol (vitamin D3) [Vitamin D] 1,000 unit PO DAILY 05/09/15 [History Last Taken Unknown] cyanocobalamin (vitamin B-12) 1,000 mcg PO DAILY@0800 05/09/15 [History Last Taken Unknown] morphine [Solange] 20 mg PO BID 05/09/15 [History Last Taken Unknown] omeprazole 20 mg PO DAILY 05/09/15 [History Last Taken Unknown] prednisone 20 mg PO DAILY 05/09/15 [History Last Taken Unknown] duloxetine 60 mg PO QHS 08/21/16 [History Last Taken Unknown] ipratropium bromide [Atrovent (SP)] 1 puff INHALATION PRN PRN 08/21/16 [History Last Taken Unknown] diltiazem HCl [Cardizem] 360 mg PO DAILY 09/06/16 [History Last Taken Unknown] Coumadin 5 mg PO DAILY 02/06/17 [History Last Taken Unknown] amitriptyline 10 mg PO DAILY 03/09/18 [History Last Taken Unknown] buspirone 5 - 10 mg PO DAILY 09/18/21 [History Last Taken Unknown] ciprofloxacin HCl 750 mg PO BID 09/18/21 [History Last Taken Unknown] doxycycline monohydrate 100 mg PO BID 09/18/21 [History Last Taken Unknown] lactobacillus combination no.4 [Probiotic] 3,000 mmu cells PO DAILY 09/18/21 [History Last Taken Unknown] oxycodone 5 - 10 mg PO BID 09/18/21 [History Last Taken Unknown] Allergy/AdvReac Type Severity Reaction Status Date / Time abatacept [From Orencia] Allergy Other Verified 09/18/21 23:39 celecoxib [From Celebrex] Allergy Hives Verified 09/18/21 23:39 golimumab [From Simponi] Allergy Other Verified 09/18/21 23:39 infliximab [From Remicade] Allergy Rash Verified 09/18/21 23:39 rituximab [From Rituxan] Allergy Anaphylaxis Verified 09/18/21 23:39 rofecoxib [From Vioxx] Allergy Hives Verified 09/18/21 23:39 shellfish derived Allergy Hives Verified 09/18/21 23:39 adalimumab [From Humira] AdvReac Other Verified 09/18/21 23:39 hydroxychloroquine sulfate AdvReac Other Verified 09/18/21 23:39 [From Plaquenil] latex AdvReac Rash Verified 09/18/21 23:39 Family History Other Cancer Surgical History History of appendectomy History of cholecystectomy History of left hip replacement S/P cervical spinal fusion S/P total right hip arthroplasty Social History Smoking Status: Never smoker ROS ROS Narrative Negative except above Physical Exam Narrative Alert awake oriented x 3 no obvious distress no pallor no icterus no JVD s1s2 no murmurs lungs clear abdomen soft no organomegaly no edema no cyanosis Lab / Micro Data Result Diagrams: 09/19/21 04:01 09/19/21 04:01 Labs: Laboratory Results - last 24 hr 09/19/21 04:01: WBC 9.2, RBC 3.81 L, Hgb 9.2 L, Hct 30.5 L, MCV 80.1 L, MCH 24.1 L, MCHC 30.2 L, RDW Std Deviation 53.1 H, RDW Coeff of Emily 18.3 H, Plt Count 399, MPV 9.4, Immature Gran % (Auto) 1.000 H, Neut % (Auto) 84.4 H, Lymph % (Auto) 5.2 L, [place] % (Auto) 8.8, Eos % (Auto) 0.3, Baso % (Auto) 0.3, Absolute Neuts (auto) 7.8 H, Absolute Lymphs (auto) 0.48 L, Nucleated RBC % 0, Differential Comment SCANNED, Anisocytosis 1+, Microcytosis 1+ 09/19/21 04:01: PT 28.7 H, INR 2.8 09/19/21 04:01: Sodium 135 L, Potassium 5.7 H, Chloride 109 H, Carbon Dioxide 19.0 L, Anion Gap 7, BUN 41 H, Creatinine 3.18 H, Estim Creat Clear Calc 14.51, Est GFR (MDRD) Af Amer 19 L, Est GFR (MDRD) Non-Af 16 L, BUN/Creatinine Ratio 12.9, Glucose 151 H, Calcium 8.9, Total Bilirubin 0.60, AST 786 H, ALT 405 H, Alkaline Phosphatase 417 H, Total Protein 6.4, Albumin 2.7 L, Globulin 3.7, Albumin/Globulin Ratio 0.7 L 09/19/21 11:30: Urine Osmolality 270, Ur Random Sodium 63, Urine Creatinine 36.00 09/19/21 11:30: Urine Color Yellow, Urine Clarity Clear, Urine pH 6.0, Ur Specific [place] 1.010, Urine Protein 15 H, Urine Glucose (UA) Normal, Urine Ketones Negative, Urine Occult Blood Negative, Urine Nitrite Negative, Urine Bilirubin Negative, Urine Urobilinogen Normal, Ur Leukocyte Esterase Negative, Urine RBC 0 SEEN, Urine WBC 0 SEEN, Ur Squamous Epith Cells 0-5 SEEN, Urine Bacteria 0 SEEN, Urine Mucus 0 SEEN Radiology Impression Abdomen/Pelvis CT 09/19/21 01:44 IMPRESSION: Subcutaneous hematoma and bubbles of subcutaneous emphysema overlying the right hip due to interval revision of right hip prosthesis. No acute intra-abdominal abnormality identified. No acute renal abnormality identified on this nonenhanced scan. Electronically Signed: Khoa Casas MD at 4:58 EDT ,
[2021-09-19] MEDS: dilTIAZem CD 180 MG Capsule 360 MG PO (20:57)
[2021-09-19] MEDS: DULoxetine Hcl 60 MG Capsule PO (21:05)
--- NOTE | 2021-09-19 22:17 | NURSING ---
Patient's states that he is unable to bring the MS Contin 15mg in to the patient tonight. He will bring tomorrow. Patient stating that she does not need the medication tonight and will be okay.
[2021-09-20] MEDS: oxyCODONE 5 MG Tablet PO ×2 (01:45→21:06)
[2021-09-20 01:55] VITALS: BP 142/78; PULSE 69; RESP 21; TEMP 36; O2SAT 91
[2021-09-20 04:33] VITALS: BP 147/93; PULSE 72; RESP 18; TEMP 36.7; O2SAT 100
[2021-09-20 05:08] LABS: HEPATITIS B SURFACE AG Negative (Negative); Hepatitis A IgM Antibody Negative (Negative); Hepatitis B Core AB IgM Negative (Negative)
[2021-09-20 06:00] LABS: Absolute Lymphocyte Count 0.91 X10^3/uL (0.83-4.51); Absolute Neutrophil Count 5.4 X10^3/uL (2.0-7.7); Basophil# 0.02 X10^3/uL; Basophil% 0.3 % (0-1); Eosinophil# 0.12 X10^3/uL; Eosinophils% 1.6 % (0-5); Hematocrit 30.9 % (37-47); Lymphocyte # 0.91 X10^3/ul (0.83-4.51); Lymphocyte % 11.9 % (19-41); Mean Corp Hgb Conc 29.1 g/dL (32-36); Mean Corpuscular Hgb 23.4 pg (27.0-32.0); Mean Corpuscular Volume 80.3 fL (81-99); Monocyte# 1.06 X10^3/uL; Monocyte% 13.9 % (0-10); NRBC Flagged by Analyzer 0 % (0-5); Neutrophil # 5.43 X10^3/uL (2.7-7.7); Neutrophil % 71.1 % (47-70); Platelet Count 385 K/mm3 (150-450); Red Blood Count 3.85 M/mm3 (4.2-5.4); White Blood Count 7.6 K/mm3 (4.4-11.0)
[2021-09-20 06:10] LABS: International Normalized Ratio 3.1; Prothrombin Time (Protime)PT. 30.8 SECONDS (11.7-14.9)
[2021-09-20] MEDS: 0.9% Normal Saline 1,000 ML 100 ML IV ×2 (06:17→16:26)
[2021-09-20 06:34] LABS: ALB/GLOB Ratio 0.7 RATIO (0.9-2.4); AST(SGOT) 208 U/L (15-37); Alanine Aminotransfer ALT/SGPT 253 U/L (13-56); Albumin, Serum 2.5 g/dL (3.2-5.0); Alkaline Phosphatase 342 U/L (45-117); Anion Gap 7 (5-15); BUN 36 mg/dL (7-18); BUN/Creat Ratio 12.5 RATIO (10-20); Calcium,Total 8.6 mg/dL (8.5-10.1); Chloride 116 mmol/L (98-107); Creatinine, Serum 2.87 mg/dL (0.55-1.02); EST Glomerular Filtration Rate 18 mL/min (>60); Est Glom Filt Rate - Afr Amer 21 mL/min (>60); Estimated Creatinine Clearance 16.07 ml/min; Globulin 3.4 g/dL (2.2-4.2); Glucose 103 mg/dL (74-106); Potassium 4.4 mmol/L (3.5-5.1); Protein, Total 5.9 g/dL (6.4-8.2); Sodium Level 141 mmol/L (136-145)
[2021-09-20 08:30] VITALS: BP 137/83; PULSE 84; RESP 18; TEMP 36.6; O2SAT 100
[2021-09-20 08:37] VITALS: O2SAT 99
[2021-09-20] MEDS: Cyanocobalamin 500 MCG Tablet 1000 MCG PO (08:38)
[2021-09-20] MEDS: predniSONE 20 MG Tablet PO (08:38)
[2021-09-20] MEDS: Pantoprazole Sodium 20 MG Tablet PO (08:38)
[2021-09-20] MEDS: Ciprofloxacin 500 MG Tablet 750 MG PO ×2 (08:38→21:00)
[2021-09-20] MEDS: busPIRone 5 MG Tablet PO (08:38)
[2021-09-20] MEDS: Ondansetron 4 MG/2 ML Vial IV (08:39)
[2021-09-20] MEDS: Menthol/Lanolin/Calamine/Znox 113 GM Tube 1 APPLIC TOPICAL ×2 (08:42→20:58)
[2021-09-20] MEDS: Amitriptyline 10 MG Tablet PO (08:42)
[2021-09-20] MEDS: Cholecalciferol (VIT D3) 25 MCG TABLET (1,000 UNITS) PO (08:43)
[2021-09-20] MEDS: morphine SR 15 MG Tablet PO ×2 (09:26→21:05)
[2021-09-20] MEDS: Doxycycline 100 MG CAPSULE PO (09:26)
--- NOTE | 2021-09-20 10:51 | PN.RENAL_ITS ---
Subjective Subjective No new complaints. Objective Data Objective Data Vital Signs: Vital Signs Temp Pulse Resp BP Pulse Ox 97.9 F 84 18 137/83 H 99 09/20/21 08:30 09/20/21 08:30 09/20/21 08:30 09/20/21 08:30 09/20/21 08:37 Oxygen Flow Rate (L/min) 98 Oxygen Delivery Method Room Air Weight: 112.8 kg Body Mass Index (BMI) 44.0 Intake & Output: Intake and Output for Last 24 Hours 09/18/21 09/19/21 09/20/21 23:59 23:59 23:59 Intake Total 2616.67 / 2616.67 1475 / 1475 Output Total 1700 / 1700 Balance 916.67 / 916.67 1475 / 1475 Lab / Micro Data Result Diagrams: 09/20/21 05:39 09/20/21 05:39 Labs: Laboratory Results - last 24 hr 09/19/21 11:30: Urine Osmolality 270, Ur Random Sodium 63, Urine Creatinine 36.00 09/19/21 11:30: Urine Color Yellow, Urine Clarity Clear, Urine pH 6.0, Ur Specific [place] 1.010, Urine Protein 15 H, Urine Glucose (UA) Normal, Urine Ketones Negative, Urine Occult Blood Negative, Urine Nitrite Negative, Urine Bilirubin Negative, Urine Urobilinogen Normal, Ur Leukocyte Esterase Negative, Urine RBC 0 SEEN, Urine WBC 0 SEEN, Ur Squamous Epith Cells 0-5 SEEN, Urine Bacteria 0 SEEN, Urine Mucus 0 SEEN 09/20/21 05:39: PT 30.8 H, INR 3.1 09/20/21 05:39: WBC 7.6, RBC 3.85 L, Hgb 9.0 L, Hct 30.9 L, MCV 80.3 L, MCH 23.4 L, MCHC 29.1 L, RDW Std Deviation 53.0 H, RDW Coeff of Emily 18.0 H, Plt Count 385, MPV 9.0, Immature Gran % (Auto) 1.200 H, Neut % (Auto) 71.1 H, Lymph % (Auto) 11.9 L, [place] % (Auto) 13.9 H, Eos % (Auto) 1.6, Baso % (Auto) 0.3, Absolute Neuts (auto) 5.4, Absolute Lymphs (auto) 0.91, Nucleated RBC % 0 09/20/21 05:39: Sodium 141, Potassium 4.4, Chloride 116 H, Carbon Dioxide 18.0 L , Anion Gap 7, BUN 36 H, Creatinine 2.87 H, Estim Creat Clear Calc 16.07, Est GFR (MDRD) Af Amer 21 L, Est GFR (MDRD) Non-Af 18 L, BUN/Creatinine Ratio 12.5, Glucose 103, Calcium 8.6, Total Bilirubin 0.10 L, AST 208 H, ALT 253 H, Alkaline Phosphatase 342 H, Total Protein 5.9 L, Albumin 2.5 L, Globulin 3.4, Albumin/Globulin Ratio 0.7 L Physical Exam Narrative Alert awake oriented x 3 no obvious distress no pallor no icterus no JVD s1s2 no murmurs lungs clear abdomen soft no organomegaly no edema no cyanosis Assessment & Plan Assessment/Plan (1) ADRIÁN (acute kidney injury): PLAN: Last known baseline creatinine from March 2021 was normal at 0.9. She had a creatinine of 3.4 last week down to 3.1 on admission. Urine analysis appears fairly benign. Abdominal imaging did not show any hydronephrosis. Denies taking NSAIDs. Other than the prednisone taper there is no other medications new. She tells me that her blood pressure has been low for the last 1 month at least. ? Related to adrenal insufficiency. She has received IV fluids overnight. Blood pressure is significantly better. Creatinine is improved. Likely all related to hypotension. Patient subjectively feels jeff r. Most likely she will need additional doses of stress dose steroids with surgery. Discussed with hospitalist. No further work-up from my end.
--- NOTE | 2021-09-20 12:05 | PN.HOSP_ITS ---
Subjective Subjective Feels better. Objective Data Objective Data Vital Signs: Vital Signs Temp Pulse Resp BP Pulse Ox 36.6 C 84 18 137/83 H 99 09/20/21 08:30 09/20/21 08:30 09/20/21 08:30 09/20/21 08:30 09/20/21 08:37 Oxygen Flow Rate (L/min) 98 Oxygen Delivery Method Room Air Weight: 112.8 kg Body Mass Index (BMI) 44.0 Intake & Output: Intake and Output for Last 24 Hours 09/18/21 09/19/21 09/20/21 23:59 23:59 23:59 Intake Total 2616.67 / 2616.67 1475 / 1475 Output Total 1700 / 1700 Balance 916.67 / 916.67 1475 / 1475 Lab / Micro Data Result Diagrams: 09/20/21 05:39 09/20/21 05:39 Labs: Laboratory Results - last 24 hr 09/19/21 11:30: Urine Osmolality 270, Ur Random Sodium 63, Urine Creatinine 36 .00 09/19/21 11:30: Urine Color Yellow, Urine Clarity Clear, Urine pH 6.0, Ur Specific [place] 1.010, Urine Protein 15 H, Urine Glucose (UA) Normal, Urine Ketones Negative, Urine Occult Blood Negative, Urine Nitrite Negative, Urine Bilirubin Negative, Urine Urobilinogen Normal, Ur Leukocyte Esterase Negative, Urine RBC 0 SEEN, Urine WBC 0 SEEN, Ur Squamous Epith Cells 0-5 SEEN, Urine Bacteria 0 SEEN, Urine Mucus 0 SEEN 09/20/21 05:39: PT 30.8 H, INR 3.1 09/20/21 05:39: WBC 7.6, RBC 3.85 L, Hgb 9.0 L, Hct 30.9 L, MCV 80.3 L, MCH 23.4 L, MCHC 29.1 L, RDW Std Deviation 53.0 H, RDW Coeff of Emily 18.0 H, Plt Count 385, MPV 9.0, Immature Gran % (Auto) 1.200 H, Neut % (Auto) 71.1 H, Lymph % (Auto) 11.9 L, [place] % (Auto) 13.9 H, Eos % (Auto) 1.6, Baso % (Auto) 0.3, Absolute Neuts (auto) 5.4, Absolute Lymphs (auto) 0.91, Nucleated RBC % 0 09/20/21 05:39: Sodium 141, Potassium 4.4, Chloride 116 H, Carbon Dioxide 18.0 L , Anion Gap 7, BUN 36 H, Creatinine 2.87 H, Estim Creat Clear Calc 16.07, Est GFR (MDRD) Af Amer 21 L, Est GFR (MDRD) Non-Af 18 L, BUN/Creatinine Ratio 12.5, Glucose 103, Calcium 8.6, Total Bilirubin 0.10 L, AST 208 H, ALT 253 H, Alkaline Phosphatase 342 H, Total Protein 5.9 L, Albumin 2.5 L, Globulin 3.4, Albumin/Globulin Ratio 0.7 L Micro: Microbiology 09/19/21 04:13 Blood Culture (Wb) - Right Hand Blood Culture - Preliminary Physical Exam Const alert and no apparent distress Resp normal respiratory effort, no retractions, no use of accessory muscles and clear to auscultation bilaterally Cardio regular rate, regular rhythm, S1 normal heart sound and S2 normal heart sound GI normal to inspection, nondistended, normoactive bowel sounds, soft to palpation, non-tender and non-distended Extremity normal to inspection Neuro Sensorium / Orientation: awake and alert Assessment & Plan Assessment/Plan (1) ADIRÁN (acute kidney injury): (2) Elevated liver enzymes: (3) Supratherapeutic INR: PLAN: 1. ADRIÁN * Per review of community records her BUN on 09/06/2021 was 11. Creatinine was 0.90. Test was performed at [facility]. * A CMP performed at [facility] on 09/18/2021 showed creatinine of 3.44; BUN of 39. * Suspected prerenal due to decreased oral intake. * On IV fluids * Monitor * Could be iatrogenic. * Nephrology consulted 2. Elevated liver enzymes * Community records on 09/06/2021 was reviewed. At that time her alkaline phosphatase was 195 (normal 32-126); ALT was 31; AST was 27. Test was performed at [facility]. * CMP performed at [facility] on 09/18/2021 showed alkaline phosphatase of 384; AST of 476; ALT of 321. * Concern for iatrogenic * check US 3. Bacteremia * 1 of 2 cultures + for GPC in clusters. * DC doxycycline, start vancomycin * repeat BCx * if true positive, may need further imaging of right hip +/- TF back to [facility] 4. Septic joint * has had numerous surgeries and prolonged hospitalizations involving this right hip. Patient last surgery require placement as well as reconstructive surgery. CAT scan showed hematoma as well as subcutaneous emphysema. On evaluation, there is no obvious clinical sign of decompensation. Anticipate patient had a very extensive surgery that has not had complete resolution. We will request the records and imaging from [facility] to compare. I do not feel that there is any clear indication to transfer the patient back to [facility] at this point in time. Discussed with the patient and she agrees. * Continue with ciprofloxacin and fluconazole. The patient's LFTs continue to climb up may need to consider changing antibiotics altogether. Patient is on chronic apparently lifelong suppressive antibiotics. * Check culture results. I am concerned that patient may be having iatrogenic issues such as LFT elevation and acute kidney injury possibly related with the Cipro and doxycycline. 5. Anemia * Stable * hemoglobin on 09/19/2019 to perform at [facility] showed a level of 10.5. MCV was 77. * Iron level 79 (normal 35-150) TIBC 375 (normal 240 to 445); percentage saturation 21 (normal 25-41). Trend CBC 6. Fever * While patient's was at [facility] her temperature increased to 100.5 Fahrenheit. Will check blood cultures. As needed Tylenol ordered. 7. Aortic mural thrombus * On warfarin 8. Rheumatoid arthritis * Prednisone 09/20: Reviewed records from [facility] which were very minimal. Related cultures being 20 days negative but did have 1 culture that did show culture positive for Emma albicans sensitive to Diflucan as well as caspofungin. No prior culture results available from what were positive. Charges/Coding Visit Charges Inpatient E&M: 93813 Subs Hosp L2
--- NOTE | 2021-09-20 12:10 | US_ITS ---
EXAM: Ultrasound abdomen, RUQ. HISTORY: elevated LFTs TECHNIQUE: US Abdomen RUQ (limited) COMPARISON: CT September 19, 2021. No choledocholithiasis or obvious pancreatic head mass or enlargement demonstrated on unenhanced exam. LIMITATIONS: None. LIVER Size: Normal. 16.9 cm. Masses: None. Contour: Normal. Echotexture: Mildly echogenic. Bile ducts: Visible slightly prominent ducts in the left lobe of the liver. Portal veins: Normal. GALLBLADDER: cholecystectomy. EXTRAHEPATIC BILE DUCTS: 1.1 cm proximal common duct, not seen distally. PANCREAS: Visualized portions mildly echogenic, uncinate process and tail not optimally seen. Slightly visible 2 mm duct in the body, within normal limits. AORTA/IVC: Visualized portions normal. RIGHT KIDNEY: 12.5 cm x 5.8 cm x 1.8 cm. There appears to be a column of [place] projecting into the echogenic renal pelvis fat, no convincing mass. ASCITES: None. PLEURAL EFFUSION: None. OTHER: None. US/Abdomen Limited IMPRESSION: Cholecystectomy. Mildly dilated common duct and slightly prominent left intrahepatic ducts, uncertain chronicity. Please correlate with bilirubin. The distal duct is not well seen at the head of the pancreas. Incompletely visualized pancreas. Mildly echogenic fatty liver. Electronically Signed: Raven Garg MD at 20:24 EDT ,
--- NOTE | 2021-09-20 12:11 | CASEMGMT ---
CARINA MCLAUGHLIN NOTE: Tania from [facility] called to inquire if pt is discharging today. She was notified pt is not medically ready for discharge today. Carmen UNGER RN CM
[2021-09-20 15:00] VITALS: BP 128/70; PULSE 82; RESP 18; TEMP 36.8; O2SAT 98
--- NOTE | 2021-09-20 15:52 | PCM.RX.CS ---
Consult Pharmacy has been consulted to manage selected antiobiotic: Vancomycin Type of Consult: New start Suspected Infection: Bacteremia Labs: Sodium 141 mmol/L (136-145) 09/20/21 05:39 Potassium 4.4 mmol/L (3.5-5.1) 09/20/21 05:39 Chloride 116 mmol/L (98-107) H 09/20/21 05:39 Carbon Dioxide 18.0 mmol/L (21.0-32.0) L 09/20/21 05:39 Anion Gap 7 (5-15) 09/20/21 05:39 BUN 36 mg/dL (7-18) H 09/20/21 05:39 Creatinine 2.87 mg/dL (0.55-1.02) H 09/20/21 05:39 Est GFR (MDRD) Af Amer 21 mL/min (>60) L 09/20/21 05:39 Est GFR (MDRD) Non-Af 18 mL/min (>60) L 09/20/21 05:39 BUN/Creatinine Ratio 12.5 RATIO (10-20) 09/20/21 05:39 Glucose 103 mg/dL (74-106) 09/20/21 05:39 Microbiology: Microbiology 09/19/21 04:13 Blood Culture (Wb) - Right Hand Bacteria Detection (PCR) - Final Coag Negative Staph 09/19/21 04:13 Blood Culture (Wb) - Right Hand Blood Culture - Preliminary Goal Trough: 15-20 mcg/mL Pharmacy Plan for Drug Dosing: NEW START IV VANCOMYCIN Consulting Physician: Dr. Marsh Indication: Bacteremia (06/24 Bcx + ) Goal Trough: 15-20 SrCr: 2.87 CrCl: 16 mL/min Comments: Patient had loading dose of 2g IV x1 entered and administered 09/20/21 @1355 Vancomcyin Dose: Patient with renal impairment, CrCl <20mL/min. Will not put patient on a scheduled dose of vancomycin at this time d/t renal function. Will dose based on trough level until CrCl > 20ml/min Pending Level: *RANDOM* level 09/22/21 with AM labs Pharmacy Service will continue to monitor and adjust dosing as required.
[2021-09-20 18:34] LABS: Hep C Antibodies <0.1 s/co ratio (0.0-0.9)
[2021-09-20 20:49] VITALS: BP 126/75; PULSE 87; RESP 18; TEMP 36.8; O2SAT 95
[2021-09-20] MEDS: dilTIAZem CD 180 MG Capsule 360 MG PO (20:59)
[2021-09-20] MEDS: DULoxetine Hcl 60 MG Capsule PO (21:00)
[2021-09-20] MEDS: Fluconazole 100 MG Tablet PO (21:01)
[2021-09-21] MEDS: 0.9% Normal Saline 1,000 ML 100 ML IV (01:57)
[2021-09-21 03:00] VITALS: BP 117/73; PULSE 84; RESP 18; TEMP 37.2; O2SAT 95
--- NOTE | 2021-09-21 03:08 | NURSING ---
pt C/O shoulder pain. Offered pt prn oxycodone, pt declines stating it doesn't really do anything
[2021-09-21 05:31] LABS: Absolute Lymphocyte Count 0.48 X10^3/uL (0.83-4.51); Absolute Neutrophil Count 7.1 X10^3/uL (2.0-7.7); Basophil# 0.04 X10^3/uL; Basophil% 0.5 % (0-1); Eosinophil# 0.22 X10^3/uL; Eosinophils% 2.5 % (0-5); Hematocrit 26.6 % (37-47); Hemoglobin 7.9 g/dL (12.0-15.0); Lymphocyte # 0.48 X10^3/ul (0.83-4.51); Lymphocyte % 5.5 % (19-41); Mean Corp Hgb Conc 29.7 g/dL (32-36); Mean Corpuscular Hgb 24.1 pg (27.0-32.0); Mean Corpuscular Volume 81.1 fL (81-99); Mean Platelet Vol. 9.2 fl (6.2-12.0); Monocyte# 0.86 X10^3/uL; Monocyte% 9.8 % (0-10); NRBC Flagged by Analyzer 0 % (0-5); Neutrophil # 7.09 X10^3/uL (2.7-7.7); Neutrophil % 80.7 % (47-70); POSITIVE DIFFERENTIAL YES; Platelet Count 341 K/mm3 (150-450); RBC Distribution Width CV 18.2 % (11.6-14.6); RBC Distribution Width SD 53.6 fl (35.1-43.9); Red Blood Count 3.28 M/mm3 (4.2-5.4); White Blood Count 8.8 K/mm3 (4.4-11.0)
[2021-09-21 05:38] LABS: Differential Indicated SCAN CRITERIA MET
[2021-09-21 05:47] LABS: International Normalized Ratio 3.7; Prothrombin Time (Protime)PT. 35.7 SECONDS (11.7-14.9)
[2021-09-21 06:01] LABS: Differential Comment SCANNED
[2021-09-21 06:02] LABS: ALB/GLOB Ratio 0.7 RATIO (0.9-2.4); AST(SGOT) 105 U/L (15-37); Alanine Aminotransfer ALT/SGPT 170 U/L (13-56); Albumin, Serum 2.3 g/dL (3.2-5.0); Alkaline Phosphatase 266 U/L (45-117); Anion Gap 5 (5-15); BUN 30 mg/dL (7-18); BUN/Creat Ratio 11.7 RATIO (10-20); Calcium,Total 8.4 mg/dL (8.5-10.1); Chloride 118 mmol/L (98-107); Creatinine, Serum 2.56 mg/dL (0.55-1.02); EST Glomerular Filtration Rate 20 mL/min (>60); Est Glom Filt Rate - Afr Amer 24 mL/min (>60); Estimated Creatinine Clearance 18.02 ml/min; Globulin 3.2 g/dL (2.2-4.2); Glucose 87 mg/dL (74-106); Potassium 4.5 mmol/L (3.5-5.1); Protein, Total 5.5 g/dL (6.4-8.2); Sodium Level 141 mmol/L (136-145)
[2021-09-21 07:23] VITALS: O2SAT 94
[2021-09-21] MEDS: Pantoprazole Sodium 20 MG Tablet PO (08:48)
[2021-09-21] MEDS: Cholecalciferol (VIT D3) 25 MCG TABLET (1,000 UNITS) PO (08:48)
[2021-09-21] MEDS: Amitriptyline 10 MG Tablet PO (08:48)
[2021-09-21] MEDS: Fluconazole 100 MG Tablet PO ×2 (08:48→21:20)
[2021-09-21] MEDS: Ciprofloxacin 500 MG Tablet 750 MG PO (08:48)
[2021-09-21] MEDS: Cyanocobalamin 500 MCG Tablet 1000 MCG PO (08:48)
[2021-09-21] MEDS: Menthol/Lanolin/Calamine/Znox 113 GM Tube 1 APPLIC TOPICAL ×2 (08:49→21:20)
[2021-09-21 09:00] VITALS: BP 128/76; PULSE 95; RESP 18; TEMP 36.7; O2SAT 99
--- NOTE | 2021-09-21 10:00 | PCM.PN.REN ---
Subjective Subjective Sitting in chair, no complaints Objective Data Objective Data Vital Signs: Vital Signs Temp Pulse Resp BP Pulse Ox 98.1 F 95 18 128/76 H 99 09/21/21 09:00 09/21/21 09:00 09/21/21 09:00 09/21/21 09:00 09/21/21 09:00 Oxygen Flow Rate (L/min) 98 Oxygen Delivery Method Room Air Weight: 112.8 kg Body Mass Index (BMI) 44.0 Intake & Output: Intake and Output for Last 24 Hours 09/19/21 09/20/21 09/21/21 23:59 23:59 23:59 Intake Total 2616.67 / 2616.67 4055 / 4055 951.67 / 951.67 Output Total 1700 / 1700 300 / 300 Balance 916.67 / 916.67 3755 / 3755 951.67 / 951.67 Lab / Micro Data Result Diagrams: 09/21/21 05:14 09/21/21 05:14 Labs: Laboratory Results - last 24 hr 09/19/21 04:01: Hepatitis A IgM Ab Negative, Hep Bs Antigen Negative, Hep B Core IgM Ab Negative, Hepatitis C Ab (EIA) <0.1 09/21/21 05:14: PT 35.7 H, INR 3.7 09/21/21 05:14: WBC 8.8, RBC 3.28 L, Hgb 7.9 L, Hct 26.6 L, MCV 81.1, MCH 24.1 L, MCHC 29.7 L, RDW Std Deviation 53.6 H, RDW Coeff of Emily 18.2 H, Plt Count 341, MPV 9.2, Immature Gran % (Auto) 1.000 H, Neut % (Auto) 80.7 H, Lymph % (Auto) 5.5 L, [place] % (Auto) 9.8, Eos % (Auto) 2.5, Baso % (Auto) 0.5, Absolute Neuts (auto) 7.1, Absolute Lymphs (auto) 0.48 L, Nucleated RBC % 0, Differential Comment SCANNED 09/21/21 05:14: Sodium 141, Potassium 4.5, Chloride 118 H, Carbon Dioxide 18.0 L, Anion Gap 5, BUN 30 H, Creatinine 2.56 H, Estim Creat Clear Calc 18.02, Est GFR (MDRD) Af Amer 24 L, Est GFR (MDRD) Non-Af 20 L, BUN/Creatinine Ratio 11.7, Glucose 87, Calcium 8.4 L, Total Bilirubin 0.40, AST 105 H, ALT 170 H, Alkaline Phosphatase 266 H, Total Protein 5.5 L, Albumin 2.3 L, Globulin 3.2, Albumin/Globulin Ratio 0.7 L Micro: Microbiology 09/19/21 04:13 Blood Culture (Wb) - Right Hand Bacteria Detection (PCR) - Final Coag Negative Staph 09/19/21 04:13 Blood Culture (Wb) - Right Hand Blood Culture - Preliminary Coag Negative Staph Radiography Diagnostic Testing: Radiology Impression Abdomen Ultrasound 09/20/21 12:10 IMPRESSION: Cholecystectomy. Mildly dilated common duct and slightly prominent left intrahepatic ducts, uncertain chronicity. Please correlate with bilirubin. The distal duct is not well seen at the head of the pancreas. Incompletely visualized pancreas. Mildly echogenic fatty liver. Electronically Signed: Raven Garg MD at 20:24 EDT , Physical Exam Narrative Alert awake oriented x 3 no obvious distress s1s2 no murmurs lungs clear abdomen soft no organomegaly trace edema b/l LE Assessment & Plan Assessment/Plan (1) ADRIÁN (acute kidney injury): PLAN: -Nonoliguric ADRIÁN likely all related to hypotension. Last known baseline creatinine from March 2021 was normal at 0.9. She had a creatinine of 3.4 last week down to 3.1 on admission. Overall renal function is stable and continues to slowly improve. SCr 2.56ng/dL today. Urine analysis appears fairly benign. Noncontrast CT did not show any hydronephrosis. Denies taking NSAIDs, only takes tylenol. Other than the prednisone taper there is no other medications new. She tells me that her blood pressure has been low for the last 1 month at least. ? Related to adrenal insufficiency. Blood pressure is significantly better. Creatinine is improved. Patient subjectively feels better. Most likely she will need additional doses of stress dose steroids with surgery. No further work-up per renal. - history of septic joint s/p numerous surgeries right hip. BC from 09/19 coag neg staph, repeat BC pending from 09/20. On oral cipro. received vanco 09/20. Off doxy. - decrease IVF rate - will arrange for hospital follow up
[2021-09-21] MEDS: predniSONE 5 MG Tablet 15 MG PO (10:17)
[2021-09-21] MEDS: busPIRone 5 MG Tablet PO (10:17)
[2021-09-21] MEDS: morphine SR 15 MG Tablet PO ×2 (10:18→21:59)
--- NOTE | 2021-09-21 12:03 | PCM.PN.HOSP ---
Subjective Subjective Feels better. Objective Data Objective Data Vital Signs: Vital Signs Temp Pulse Resp BP Pulse Ox 36.7 C 95 18 128/76 H 99 09/21/21 09:00 09/21/21 09:00 09/21/21 09:00 09/21/21 09:00 09/21/21 09:00 Oxygen Flow Rate (L/min) 98 Oxygen Delivery Method Room Air Weight: 112.8 kg Body Mass Index (BMI) 44.0 Intake & Output: Intake and Output for Last 24 Hours 09/19/21 09/20/21 09/21/21 23:59 23:59 23:59 Intake Total 2616.67 / 2616.67 4055 / 4055 2091.67 / 209.67 Output Total 1700 / 1700 300 / 300 Balance 916.67 / 916.67 3755 / 3755 2091.67 / 209.67 Lab / Micro Data Result Diagrams: 09/21/21 05:14 09/21/21 05:14 Labs: Laboratory Results - last 24 hr 09/19/21 04:01: Hepatitis A IgM Ab Negative, Hep Bs Antigen Negative, Hep B Core IgM Ab Negative, Hepatitis C Ab (EIA) <0.1 09/21/21 05:14: PT 35.7 H, INR 3.7 09/21/21 05:14: WBC 8.8, RBC 3.28 L, Hgb 7.9 L, Hct 26.6 L, MCV 81.1, MCH 24.1 L, MCHC 29.7 L, RDW Std Deviation 53.6 H, RDW Coeff of Emily 18.2 H, Plt Count 341, MPV 9.2, Immature Gran % (Auto) 1.000 H, Neut % (Auto) 80.7 H, Lymph % (Auto) 5.5 L, [place] % (Auto) 9.8, Eos % (Auto) 2.5, Baso % (Auto) 0.5, Absolute Neuts (auto) 7.1, Absolute Lymphs (auto) 0.48 L, Nucleated RBC % 0, Differential Comment SCANNED 09/21/21 05:14: Sodium 141, Potassium 4.5, Chloride 118 H, Carbon Dioxide 18.0 L, Anion Gap 5, BUN 30 H, Creatinine 2.56 H, Estim Creat Clear Calc 18.02, Est GFR (MDRD) Af Amer 24 L, Est GFR (MDRD) Non-Af 20 L, BUN/Creatinine Ratio 11.7, Glucose 87, Calcium 8.4 L, Total Bilirubin 0.40, AST 105 H, ALT 170 H, Alkaline Phosphatase 266 H, Total Protein 5.5 L, Albumin 2.3 L, Globulin 3.2, Albumin/Globulin Ratio 0.7 L Micro: Microbiology 09/19/21 04:01 Blood Culture (Wb) - Anticubital Left Blood Culture - Preliminary No growth in 48 hours. 09/19/21 04:13 Blood Culture (Wb) - Right Hand Bacteria Detection (PCR) - Final Coag Negative Staph 09/19/21 04:13 Blood Culture (Wb) - Right Hand Blood Culture - Preliminary Coag Negative Staph Radiography Diagnostic Testing: Radiology Impression Abdomen Ultrasound 09/20/21 12:10 IMPRESSION: Cholecystectomy. Mildly dilated common duct and slightly prominent left intrahepatic ducts, uncertain chronicity. Please correlate with bilirubin. The distal duct is not well seen at the head of the pancreas. Incompletely visualized pancreas. Mildly echogenic fatty liver. Electronically Signed: Raven Garg MD at 20:24 EDT , Physical Exam Const alert and no apparent distress Resp normal respiratory effort, no retractions, no use of accessory muscles and clear to auscultation bilaterally Cardio regular rate, regular rhythm, S1 normal heart sound and S2 normal heart sound GI normal to inspection, nondistended, normoactive bowel sounds, soft to palpation, non-tender and non-distended Extremity normal to inspection Psych affect normal Assessment & Plan Assessment/Plan (1) ADRIÁN (acute kidney injury): (2) Elevated liver enzymes: (3) Supratherapeutic INR: PLAN: 1. ADRIÁN Improving Per review of community records her BUN on 09/06/2021 was 11. Creatinine was 0.90. Test was performed at [facility]. A CMP performed at [facility] on 09/18/2021 showed creatinine of 3.44; BUN of 39. Suspected prerenal due to decreased oral intake. On IV fluids Monitor Could be iatrogenic. Nephrology consulted 2. Elevated liver enzymes Improving community records on 09/06/2021 was reviewed. At that time her alkaline phosphatase was 195 (normal 32-126); ALT was 31; AST was 27. Test was performed at [facility]. CMP performed at [facility] on 09/18/2021 showed alkaline phosphatase of 384; AST of 476; ALT of 321. Concern for iatrogenic versus hypertensive US unremarkable. Noted enlarged biliary duct patient is status post cholecystectomy. 3. Bacteremia 1 of 2 cultures + for GPC in clusters. Which appears to be coag negative staph and likely contaminant. Given the patient's extensive history of septic joint I would want to make sure that those are cleared. DC doxycycline, start vancomycin repeat BCx if true positive, may need further imaging of right hip +/- TF back to [facility] 4. Septic joint has had numerous surgeries and prolonged hospitalizations involving this right hip. Patient last surgery require placement as well as reconstructive surgery. CAT scan showed hematoma as well as subcutaneous emphysema. On evaluation, there is no obvious clinical sign of decompensation. Anticipate patient had a very extensive surgery that has not had complete resolution. We will request the records and imaging from [facility] to compare. I do not feel that there is any clear indication to transfer the patient back to [facility] at this point in time. Discussed with the patient and she agrees. Continue with ciprofloxacin and fluconazole. The patient's LFTs continue to climb up may need to consider changing antibiotics altogether. Patient is on chronic apparently lifelong suppressive antibiotics. Check culture results. I am concerned that patient may be having iatrogenic issues such as LFT elevation and acute kidney injury possibly related with the Cipro and doxycycline. 5. Anemia Stable hemoglobin on 09/19/2019 to perform at [facility] showed a level of 10.5. MCV was 77. Iron level 79 (normal 35-150) TIBC 375 (normal 240 to 445); percentage saturation 21 (normal 25-41). Trend CBC 6. Fever [facility]'s [facility] her temperature increased to 100.5 Fahrenheit. Will check blood cultures. As needed Tylenol ordered. 7. Aortic mural thrombus On warfarin 8. Rheumatoid arthritis Prednisone 09/20: Reviewed records from [facility] which were very minimal. Related cultures being 20 days negative but did have 1 culture that did show culture positive for Emma albicans sensitive to Diflucan as well as caspofungin. No prior culture results available from what were positive. Charges/Coding Visit Charges Inpatient E&M: 92510 Subs Hosp L2
--- NOTE | 2021-09-21 12:43 | CASEMGMT ---
Received tc from Tania from [facility], she is aware pt is not medically ready for dc today but plan for tomorrow. Faxed prelim referral info at this time. Green sheet on chart for dc tomorrow.
[2021-09-21 14:25] VITALS: O2SAT 98
[2021-09-21 14:59] VITALS: BP 123/76; PULSE 89; RESP 16; TEMP 37.1; O2SAT 99
[2021-09-21] MEDS: 0.9% Normal Saline 1,000 ML 50 ML IV (16:39)
[2021-09-21 21:00] VITALS: BP 124/76; PULSE 81; RESP 18; TEMP 37.3; O2SAT 98
[2021-09-21] MEDS: dilTIAZem CD 180 MG Capsule 360 MG PO (21:19)
[2021-09-21] MEDS: DULoxetine Hcl 60 MG Capsule PO (21:20)
[2021-09-21] MEDS: Ciprofloxacin 500 MG Tablet PO (21:20)
[2021-09-21 21:51] LABS: Bedside Glucose 128 mg/dL (74-106)
[2021-09-21] MEDS: busPIRone 5 MG Tablet 10 MG PO (21:59)
[2021-09-21] MEDS: MELATONIN 3 MG TABLET PO (21:59)
[2021-09-22 05:00] VITALS: BP 127/74; PULSE 80; RESP 18; TEMP 37.1; O2SAT 100
[2021-09-22 07:31] LABS: ALB/GLOB Ratio 0.7 RATIO (0.9-2.4); AST(SGOT) 895 U/L (15-37); Alanine Aminotransfer ALT/SGPT 603 U/L (13-56); Albumin, Serum 2.4 g/dL (3.2-5.0); Alkaline Phosphatase 545 U/L (45-117); Anion Gap 5 (5-15); BUN 25 mg/dL (7-18); BUN/Creat Ratio 9.5 RATIO (10-20); Calcium,Total 8.6 mg/dL (8.5-10.1); Chloride 117 mmol/L (98-107); Creatinine, Serum 2.64 mg/dL (0.55-1.02); EST Glomerular Filtration Rate 20 mL/min (>60); Est Glom Filt Rate - Afr Amer 24 mL/min (>60); Estimated Creatinine Clearance 17.47 ml/min; Globulin 3.4 g/dL (2.2-4.2); Glucose 88 mg/dL (74-106); Phosphorus 3.4 mg/dL (2.5-4.9); Potassium 4.5 mmol/L (3.5-5.1); Protein, Total 5.8 g/dL (6.4-8.2); Sodium Level 140 mmol/L (136-145)
[2021-09-22 07:40] LABS: Vancomycin, Random Level 15.9 ug/mL (0.0-15.0)
[2021-09-22 08:07] LABS: International Normalized Ratio 3.5; Prothrombin Time (Protime)PT. 34.3 SECONDS (11.7-14.9)
--- NOTE | 2021-09-22 08:10 | PCM.RX.CS ---
Consult Pharmacy has been consulted to manage selected antiobiotic: Vancomycin Type of Consult: Follow-up Prior Doses of Antibiotics Received/Current Regimen: received 2000mg IV x1 on 09/20 at 13:55 but there is no scheduled dose at this time Labs: Sodium 140 mmol/L (136-145) 09/22/21 06:50 Potassium 4.5 mmol/L (3.5-5.1) 09/22/21 06:50 Chloride 117 mmol/L (98-107) H 09/22/21 06:50 Carbon Dioxide 18.0 mmol/L (21.0-32.0) L 09/22/21 06:50 Anion Gap 5 (5-15) 09/22/21 06:50 BUN 25 mg/dL (7-18) H 09/22/21 06:50 Creatinine 2.64 mg/dL (0.55-1.02) H 09/22/21 06:50 Est GFR (MDRD) Af Amer 24 mL/min (>60) L 09/22/21 06:50 Est GFR (MDRD) Non-Af 20 mL/min (>60) L 09/22/21 06:50 BUN/Creatinine Ratio 9.5 RATIO (10-20) L 09/22/21 06:50 Glucose 88 mg/dL (74-106) 09/22/21 06:50 Random Vancomycin 15.9 ug/mL (0.0-15.0) H 09/22/21 06:50 Microbiology: Microbiology 09/19/21 04:01 Blood Culture (Wb) - Anticubital Left Blood Culture - Preliminary No growth in 48 hours. 09/19/21 04:13 Blood Culture (Wb) - Right Hand Bacteria Detection (PCR) - Final Coag Negative Staph 09/19/21 04:13 Blood Culture (Wb) - Right Hand Blood Culture - Preliminary Coag Negative Staph Weight used for dosin.8 kg Estimated Creatinine Clearance: 17.5ml/min Goal Trough: 15-20 mcg/mL Pharmacy Plan for Drug Dosing: The vanc random level drawn at 06:50 today (approx 41 hrs after the 2000mg dose) came back as 15.9. Per [facility] dosing protocol in patients with CrCl < 20ml/min, since this random level is <20, will re-dose the patient with 1750mg IV x1 (15 mg/kg based on the patient's weight). Since the patient's CrCl remains <20, will repeat another random level with AM labs in 2 days and dose based off that. Pharmacy Service will continue to monitor and adjust dosing as required. Follow-Up Labs: Trough Vancomycin - random Labs to be done on [date and time ordered]: 09/24/21 0600
[2021-09-22 08:51] VITALS: BP 133/79; PULSE 82; RESP 18; TEMP 36.7; O2SAT 95
[2021-09-22] MEDS: busPIRone 5 MG Tablet PO (08:53)
[2021-09-22] MEDS: Pantoprazole Sodium 20 MG Tablet PO (08:53)
[2021-09-22] MEDS: Cyanocobalamin 500 MCG Tablet 1000 MCG PO (08:53)
[2021-09-22] MEDS: Amitriptyline 10 MG Tablet PO (08:53)
[2021-09-22] MEDS: predniSONE 5 MG Tablet 15 MG PO (08:53)
[2021-09-22] MEDS: Cholecalciferol (VIT D3) 25 MCG TABLET (1,000 UNITS) PO (08:54)
[2021-09-22] MEDS: Menthol/Lanolin/Calamine/Znox 113 GM Tube 1 APPLIC TOPICAL ×2 (09:10→21:51)
[2021-09-22] MEDS: morphine SR 15 MG Tablet PO ×2 (10:04→21:50)
--- NOTE | 2021-09-22 12:02 | PCM.PN.HOSP ---
Subjective Subjective Feels well. Objective Data Objective Data Vital Signs: Vital Signs Temp Pulse Resp BP Pulse Ox 36.7 C 82 18 133/79 H 95 09/22/21 08:51 09/22/21 08:51 09/22/21 08:51 09/22/21 08:51 09/22/21 08:51 Oxygen Flow Rate (L/min) 98 Oxygen Delivery Method Room Air Weight: 112.8 kg Body Mass Index (BMI) 44.0 Intake & Output: Intake and Output for Last 24 Hours 09/20/21 09/21/21 09/22/21 23:59 23:59 23:59 Intake Total 4055 / 4055 2951.67 / 2951.67 1194.17 / 1194.17 Output Total 300 / 300 900 / 900 Balance 3755 / 3755 2951.67 / 2451.67 294.17 / 294.17 Lab / Micro Data Result Diagrams: 09/21/21 05:14 09/22/21 06:50 Labs: Laboratory Results - last 24 hr 09/21/21 21:23: POC Glucose 128 H 09/22/21 06:50: PT 34.3 H, INR 3.5 09/22/21 06:50: Sodium 140, Potassium 4.5, Chloride 117 H, Carbon Dioxide 18.0 L, Anion Gap 5, BUN 25 H, Creatinine 2.64 H, Estim Creat Clear Calc 17.47, Est GFR (MDRD) Af Amer 24 L, Est GFR (MDRD) Non-Af 20 L, BUN/Creatinine Ratio 9.5 L, Glucose 88, Calcium 8.6, Phosphorus 3.4, Total Bilirubin 0.30, AST 895 H, ALT 603 H, Alkaline Phosphatase 545 H, Total Protein 5.8 L, Albumin 2.4 L, Globulin 3.4, Albumin/Globulin Ratio 0.7 L 09/22/21 06:50: Random Vancomycin 15.9 H Micro: Microbiology 09/19/21 04:01 Blood Culture (Wb) - Anticubital Left Blood Culture - Preliminary No growth in 48 hours. 09/19/21 04:13 Blood Culture (Wb) - Right Hand Bacteria Detection (PCR) - Final Coag Negative Staph 09/19/21 04:13 Blood Culture (Wb) - Right Hand Blood Culture - Preliminary Coag Negative Staph Physical Exam Const alert and no apparent distress HEENT head/scalp atraumatic Head and Scalp: normocephalic Cardio regular rate, regular rhythm, S1 normal heart sound and S2 normal heart sound GI normal to inspection, nondistended, normoactive bowel sounds, soft to palpation, non-tender and non-distended Extremity normal to inspection Assessment & Plan Assessment/Plan (1) ADRIÁN (acute kidney injury): (2) Elevated liver enzymes: (3) Supratherapeutic INR: PLAN: 1. ADRIÁN Improving Per review of community records her BUN on 09/06/2021 was 11. Creatinine was 0.90. Test was performed at [facility]. A CMP performed at [facility] on 09/18/2021 showed creatinine of 3.44; BUN of 39. Suspected prerenal due to decreased oral intake. On IV fluids Monitor Could be iatrogenic. Nephrology consulted 2. Elevated liver enzymes Worse again. Diflucan had been started on and again it is worse. Strongly feel that this is related with the fluconazole. Hold fluconazole. CMP performed at [facility] on 09/18/2021 showed alkaline phosphatase of 384; AST of 476; ALT of 321. US unremarkable. Noted enlarged biliary duct patient is status post cholecystectomy. Consider gastroenterology consultation if continues to worsen. 3. Bacteremia 1 of 2 cultures + showing coag negative staph. Which appears to be coag negative staph and likely contaminant. Given the patient's extensive history of septic joint I would want to make sure that those are cleared. Discontinue vancomycin and restart doxycycline. 4. Septic joint has had numerous surgeries and prolonged hospitalizations involving this right hip. Patient last surgery require placement as well as reconstructive surgery. CAT scan showed hematoma as well as subcutaneous emphysema. On evaluation, there is no obvious clinical sign of decompensation. Anticipate patient had a very extensive surgery that has not had complete resolution. We will request the records and imaging from [facility] to compare. I do not feel that there is any clear indication to transfer the patient back to [facility] at this point in time. Discussed with the patient and she agrees. Continue with ciprofloxacin, doxycycline Fluconazole held given #2 Will request more extensive information from [facility] and consult infectious disease in regards to antibiotics particular if fluconazole cannot be continued. Patient aware that infect disease will not see her until the fourth. 5. Anemia Stable hemoglobin on 09/19/[address] [facility] showed a level of 10.5. MCV was 77. Iron level 79 (normal 35-150) TIBC 375 (normal 240 to 445); percentage saturation 21 (normal 25-41). Trend CBC 6. Fever While patient's was [facility] her temperature increased to 100.5 Fahrenheit. Will check blood cultures. As needed Tylenol ordered. 7. Aortic mural thrombus INR therapeutic. Warfarin currently being held as it is supratherapeutic. 8. Rheumatoid arthritis Prednisone 09/20: Reviewed records from [facility] which were very minimal. Related cultures being 20 days negative but did have 1 culture that did show culture positive for Emma albicans sensitive to Diflucan as well as caspofungin. No prior culture results available from what were positive. Greater than 35 minutes of which greater than 50% of time was discussing the patient at bedside about the bacteremia being a contaminant, her worsening liver function tests likely being due to her fluconazole. The planned to monitor here over the weekend, continue to check her liver function tests, rerequest additional information from [facility] and consult infectious disease. Charges/Coding Visit Charges Inpatient E&M: 93236 Subs Hosp L3
[2021-09-22 14:20] VITALS: BP 134/79; PULSE 82; RESP 18; TEMP 36.4; O2SAT 97
[2021-09-22] MEDS: 0.9% Normal Saline 1,000 ML 50 ML IV (15:01)
[2021-09-22] MEDS: Ciprofloxacin 500 MG Tablet PO (15:56)
--- NOTE | 2021-09-22 18:51 | PN.RENAL_ITS ---
Subjective Subjective Following for ADRIÁN. The patient denies increasing shortness of breath. She has baseline dyspnea with activities. He denies nausea, vomiting, chest pain, or shortness of breath at rest. Appetite appears to be picking up. Objective Data Objective Data Vital Signs: Vital Signs Temp Pulse Resp BP Pulse Ox 97.6 F L 82 18 134/79 H 97 09/22/21 14:20 09/22/21 14:20 09/22/21 14:20 09/22/21 14:20 09/22/21 14:20 Oxygen Flow Rate (L/min) 98 Oxygen Delivery Method Room Air Weight: 112.8 kg Body Mass Index (BMI) 44.0 Intake & Output: Intake and Output for Last 24 Hours 09/20/21 09/21/21 09/22/21 23:59 23:59 23:59 Intake Total 4055 / 4055 2951.67 / 2951.67 1535.00 / 1535.00 Output Total 300 / 300 900 / 900 Balance 3755 / 3755 2951.67 / 2451.67 635.00 / 635.00 Lab / Micro Data Result Diagrams: 09/21/21 05:14 09/22/21 06:50 Labs: Laboratory Results - last 24 hr 09/21/21 21:23: POC Glucose 128 H 09/22/21 06:50: PT 34.3 H, INR 3.5 09/22/21 06:50: Sodium 140, Potassium 4.5, Chloride 117 H, Carbon Dioxide 18.0 L , Anion Gap 5, BUN 25 H, Creatinine 2.64 H, Estim Creat Clear Calc 17.47, Est GFR (MDRD) Af Amer 24 L, Est GFR (MDRD) Non-Af 20 L, BUN/Creatinine Ratio 9.5 L, Glucose 88, Calcium 8.6, Phosphorus 3.4, Total Bilirubin 0.30, AST 895 H, ALT 603 H, Alkaline Phosphatase 545 H, Total Protein 5.8 L, Albumin 2.4 L, Globulin 3.4, Albumin/Globulin Ratio 0.7 L 09/22/21 06:50: Random Vancomycin 15.9 H Micro: Microbiology 09/19/21 04:01 Blood Culture (Wb) - Anticubital Left Blood Culture - Preliminary No growth in 48 hours. 09/19/21 04:13 Blood Culture (Wb) - Right Hand Bacteria Detection (PCR) - Final Coag Negative Staph 09/19/21 04:13 Blood Culture (Wb) - Right Hand Blood Culture - Preliminary Coag Negative Staph Physical Exam Narrative Alert awake oriented x 3 no obvious distress s1s2 no murmurs lungs clear anteriorly abdomen soft, no organomegaly trace edema b/l LE Assessment & Plan Assessment/Plan (1) ADRIÁN (acute kidney injury): PLAN: -Nonoliguric ADRIÁN likely all related to hypotension. Last known baseline creatinine from March 2021 was normal at 0.9. -Serum creatinine has so far peaked at 3.18 mg/dL on 09/19/2021. -Urine analysis appears fairly benign. Noncontrast CT did not show any hydronephrosis. -Suspect ADRIÁN is secondary to ATN. -There has been some fluctuation of serum creatinine last 3 days, but overall trajectory is improving. -Blood pressure is significantly better. -Continue IV fluid overnight. If renal function stabilizes, we can stop IV fluid tomorrow. - will arrange for hospital follow up if she is discharged.
[2021-09-22 20:20] VITALS: BP 124/81; PULSE 84; RESP 16; TEMP 37; O2SAT 97
[2021-09-22] MEDS: DULoxetine Hcl 60 MG Capsule PO (21:47)
[2021-09-22] MEDS: MELATONIN 3 MG TABLET PO (21:47)
[2021-09-22] MEDS: dilTIAZem CD 180 MG Capsule 360 MG PO (21:48)
[2021-09-22] MEDS: busPIRone 5 MG Tablet 10 MG PO (21:49)
[2021-09-22] MEDS: Doxycycline 100 MG CAPSULE PO (21:49)
[2021-09-23 02:25] VITALS: BP 134/85; PULSE 86; RESP 16; TEMP 36.6; O2SAT 100
[2021-09-23 07:04] VITALS: BP 122/78; PULSE 80; RESP 18; TEMP 36.7; O2SAT 100
[2021-09-23 07:16] LABS: International Normalized Ratio 2.9; Prothrombin Time (Protime)PT. 29.4 SECONDS (11.7-14.9)
[2021-09-23 07:35] LABS: ALB/GLOB Ratio 0.7 RATIO (0.9-2.4); AST(SGOT) 303 U/L (15-37); Alanine Aminotransfer ALT/SGPT 397 U/L (13-56); Albumin, Serum 2.4 g/dL (3.2-5.0); Alkaline Phosphatase 477 U/L (45-117); Anion Gap 7 (5-15); BUN 21 mg/dL (7-18); BUN/Creat Ratio 8.8 RATIO (10-20); Calcium,Total 8.7 mg/dL (8.5-10.1); Chloride 118 mmol/L (98-107); Creatinine, Serum 2.38 mg/dL (0.55-1.02); EST Glomerular Filtration Rate 22 mL/min (>60); Est Glom Filt Rate - Afr Amer 27 mL/min (>60); Estimated Creatinine Clearance 19.38 ml/min; Globulin 3.5 g/dL (2.2-4.2); Glucose 78 mg/dL (74-106); Potassium 4.5 mmol/L (3.5-5.1); Protein, Total 5.9 g/dL (6.4-8.2); Sodium Level 141 mmol/L (136-145)
[2021-09-23] MEDS: Ciprofloxacin 500 MG Tablet PO (08:32)
[2021-09-23] MEDS: Amitriptyline 10 MG Tablet PO (08:32)
[2021-09-23] MEDS: Cholecalciferol (VIT D3) 25 MCG TABLET (1,000 UNITS) PO (08:32)
[2021-09-23] MEDS: busPIRone 5 MG Tablet PO (08:33)
[2021-09-23] MEDS: Cyanocobalamin 500 MCG Tablet 1000 MCG PO (08:33)
[2021-09-23] MEDS: predniSONE 5 MG Tablet 15 MG PO (08:33)
[2021-09-23] MEDS: Doxycycline 100 MG CAPSULE PO ×2 (08:33→21:08)
[2021-09-23] MEDS: morphine SR 15 MG Tablet PO ×2 (08:33→21:08)
[2021-09-23] MEDS: Pantoprazole Sodium 20 MG Tablet PO (08:33)
[2021-09-23] MEDS: Menthol/Lanolin/Calamine/Znox 113 GM Tube 1 APPLIC TOPICAL ×2 (08:36→21:10)
--- NOTE | 2021-09-23 10:21 | PN.HOSP_ITS ---
Subjective Subjective Feels well. Objective Data Objective Data Vital Signs: Vital Signs Temp Pulse Resp BP Pulse Ox 36.6 C 86 16 134/85 H 100 09/23/21 02:25 09/23/21 02:25 09/23/21 02:25 09/23/21 02:25 09/23/21 02:25 Oxygen Flow Rate (L/min) 98 Oxygen Delivery Method Room Air Weight: 112.8 kg Body Mass Index (BMI) 44.0 Intake & Output: Intake and Output for Last 24 Hours 09/21/21 09/22/21 09/23/21 23:59 23:59 23:59 Intake Total 2951.67 / 2951.67 1535.00 / 1535.00 Output Total 900 / 900 1000 / 1000 Balance 2951.67 / 2451.67 635.00 / 635.00 -1000 / -1000 Lab / Micro Data Result Diagrams: 09/21/21 05:14 09/23/21 05:18 Labs: Laboratory Results - last 24 hr 09/23/21 05:18: Sodium 141, Potassium 4.5, Chloride 118 H, Carbon Dioxide 16.0 L , Anion Gap 7, BUN 21 H, Creatinine 2.38 H, Estim Creat Clear Calc 19.38, Est GFR (MDRD) Af Amer 27 L, Est GFR (MDRD) Non-Af 22 L, BUN/Creatinine Ratio 8.8 L, Glucose 78, Calcium 8.7, Total Bilirubin 0.30, AST 303 H, ALT 397 H, Alkaline Phosphatase 477 H, Total Protein 5.9 L, Albumin 2.4 L, Globulin 3.5, Albumin/Globulin Ratio 0.7 L 09/23/21 05:18: PT 29.4 H, INR 2.9 Micro: Microbiology 09/19/21 04:01 Blood Culture (Wb) - Anticubital Left Blood Culture - Preliminary No growth in 48 hours. 09/19/21 04:13 Blood Culture (Wb) - Right Hand Bacteria Detection (PCR) - Final Coag Negative Staph 09/19/21 04:13 Blood Culture (Wb) - Right Hand Blood Culture - Preliminary Coag Negative Staph Physical Exam Const alert, no apparent distress and average body habitus HEENT head/scalp atraumatic Head and Scalp: normocephalic Resp normal respiratory effort, no retractions, no use of accessory muscles and clear to auscultation bilaterally Cardio regular rate, regular rhythm, S1 normal heart sound and S2 normal heart sound GI normal to inspection, nondistended, normoactive bowel sounds, soft to palpation, non-tender and non-distended Extremity normal to inspection Skin no rashes or lesions noted Neuro Sensorium / Orientation: awake and alert Assessment & Plan Assessment/Plan (1) ADRIÁN (acute kidney injury): (2) Elevated liver enzymes: (3) Supratherapeutic INR: PLAN: 1. ADRIÁN * Improving * Per review of community records her BUN on 09/06/2021 was 11. Creatinine was 0.90. Test was performed at [facility]. * A CMP performed at [facility] on 09/18/2021 showed creatinine of 3.44; BUN of 39. * Suspected prerenal due to decreased oral intake. * Monitor * Could be iatrogenic. * Nephrology following * HLIV 2. Elevated liver enzymes * Improved after holding fluconazole. Worse after restarting Diflucan had been started on and again it is worse. Strongly feel that this is related with the fluconazole. Continue to hold fluconazole. * CMP performed at [facility] on 09/18/2021 showed alkaline phosphatase of 384; AST of 476; ALT of 321. * US unremarkable. Noted enlarged biliary duct patient is status post cholecystectomy. * Consider gastroenterology consultation if continues to worsen. 3. Bacteremia * 1 of 2 cultures + showing coag negative staph. Contaminant. Repeat BCx negative. No additional work up. * Discontinue vancomycin and restart doxycycline. 4. Septic joint * has had numerous surgeries and prolonged hospitalizations involving this right hip. Patient last surgery require placement as well as reconstructive surgery. CAT scan showed hematoma as well as subcutaneous emphysema. On evaluation, there is no obvious clinical sign of decompensation. Anticipate patient had a very extensive surgery that has not had complete resolution. We will request the records and imaging from [facility] to compare. I do not feel that there is any clear indication to transfer the patient back to [facility] at this point in time. Discussed with the patient and she agrees. * Continue with ciprofloxacin, doxycycline * Fluconazole held given #2 * 09/22: requested more extensive information from [facility] and consult infectious disease in regards to antibiotics particular if fluconazole cannot be continued. Patient aware that infect disease will not see her until the fourth. * 09/23: [facility] Infectious Disease oncall physician. Reviewed data with him. Agreed, we both agreed that it is concerning for fluconazole-induced hepatotoxicity. He recommend Caspofungin 50mg/daily. He feels a low-risk of hepatotoxicity. Hospital number provided and he said they will call floor to help coordinate outpt abx. Additionally, he said that it appears that the fluconazole was indicated for suppression. Discussed with her pharmacy here, we do not have caspofungin but we do have micafungin. Micafungin is effective against Emma species which this patient has. We will start 100 mg daily of micafungin. 5. Anemia * Stable * hemoglobin on 09/19/2019 to perform at [facility] showed a level of 10.5. MCV was 77. * Iron level 79 (normal 35-150) TIBC 375 (normal 240 to 445); percentage saturation 21 (normal 25-41). Trend CBC 6. Fever * resolved. No additional work up at this time. 7. Aortic mural thrombus * resume warfarin now that INR therapeutic. 8. Rheumatoid arthritis * Prednisone 09/20: Reviewed records from [facility] which were very minimal. Related cultures being 20 days negative but did have 1 culture that did show culture positive for Emma albicans sensitive to Diflucan as well as caspofungin. No prior culture results available from what were positive. Greater than 40 minutes of which greater than for present time was contacting [facility] and discussing with the on-call physician and reviewing micafungin with pharmacist here. Charges/Coding Visit Charges Inpatient E&M: 96363 Subs Hosp L3
[2021-09-23] MEDS: 0.9% Normal Saline 1,000 ML 50 ML IV (11:00)
[2021-09-23 16:53] VITALS: BP 128/84; PULSE 87; RESP 18; TEMP 36.3; O2SAT 97
[2021-09-23 20:28] VITALS: BP 126/87; PULSE 87; RESP 16; TEMP 36.7; O2SAT 98
--- NOTE | 2021-09-23 20:37 | PN.RENAL_ITS ---
Subjective Subjective Following for ADRIÁN. The patient denies chest pain, shortness of breath, or nausea. She still has significant edema of the lower extremities. Objective Data Objective Data Vital Signs: Vital Signs Temp Pulse Resp BP Pulse Ox 98.1 F 87 16 126/87 H 98 09/23/21 20:28 09/23/21 20:28 09/23/21 20:28 09/23/21 20:28 09/23/21 20:28 Oxygen Flow Rate (L/min) 98 Oxygen Delivery Method Room Air Weight: 112.8 kg Body Mass Index (BMI) 44.0 Intake & Output: Intake and Output for Last 24 Hours 09/21/21 09/22/21 09/23/21 23:59 23:59 23:59 Intake Total 2951.67 / 2951.67 1535.00 / 1535.00 1104.17 / 1104.17 Output Total 900 / 900 1000 / 1000 Balance 2951.67 / 2451.67 635.00 / 635.00 104.17 / 104.17 Lab / Micro Data Result Diagrams: 09/21/21 05:14 09/23/21 05:18 Labs: Laboratory Results - last 24 hr 09/23/21 05:18: Sodium 141, Potassium 4.5, Chloride 118 H, Carbon Dioxide 16.0 L , Anion Gap 7, BUN 21 H, Creatinine 2.38 H, Estim Creat Clear Calc 19.38, Est GFR (MDRD) Af Amer 27 L, Est GFR (MDRD) Non-Af 22 L, BUN/Creatinine Ratio 8.8 L, Glucose 78, Calcium 8.7, Total Bilirubin 0.30, AST 303 H, ALT 397 H, Alkaline Phosphatase 477 H, Total Protein 5.9 L, Albumin 2.4 L, Globulin 3.5, Albumin/Globulin Ratio 0.7 L 09/23/21 05:18: PT 29.4 H, INR 2.9 Micro: Microbiology 09/20/21 18:35 Blood Culture (Wb) - Left Hand Blood Culture - Preliminary No growth in 48 hours. 09/20/21 18:27 Blood Culture (Wb) - Anticubital Left Blood Culture - Preliminary No growth in 48 hours. 09/19/21 04:01 Blood Culture (Wb) - Anticubital Left Blood Culture - Preliminary No growth in 48 hours. 09/19/21 04:13 Blood Culture (Wb) - Right Hand Bacteria Detection (PCR) - Final Coag Negative Staph 09/19/21 04:13 Blood Culture (Wb) - Right Hand Blood Culture - Preliminary Coag Negative Staph Physical Exam Narrative Alert awake oriented x 3 no obvious distress Normal s1s2, no murmurs lungs clear anteriorly abdomen soft, no organomegaly 2+ edema b/l LE Assessment & Plan Assessment/Plan (1) ADRIÁN (acute kidney injury): PLAN: -Nonoliguric ADRIÁN likely all related to hypotension. Last known baseline creatinine from March 2021 was normal at 0.9. -Serum creatinine has so far peaked at 3.18 mg/dL on 09/19/2021. -Urine analysis appears fairly benign. Noncontrast CT did not show any hydronephrosis. -Suspect ADRIÁN is secondary to ATN. -There has been some fluctuation of serum creatinine last 4 days, but overall trajectory is improving. -Blood pressure is stable. -Continue IV fluid overnight since her oral intake is still marginal. -If renal function stabilizes, we can stop IV fluid tomorrow. -We will arrange for hospital follow up if she is discharged.
[2021-09-23] MEDS: busPIRone 5 MG Tablet 10 MG PO (21:08)
[2021-09-23] MEDS: dilTIAZem CD 180 MG Capsule 360 MG PO (21:08)
[2021-09-23] MEDS: DULoxetine Hcl 60 MG Capsule PO (21:09)
[2021-09-24 02:26] VITALS: BP 145/82; PULSE 89; RESP 16; TEMP 36.6; O2SAT 96
[2021-09-24] MEDS: Ciprofloxacin 500 MG Tablet PO (04:07)
[2021-09-24] MEDS: 0.9% Normal Saline 1,000 ML 50 ML IV (05:54)
[2021-09-24 06:36] LABS: International Normalized Ratio 2.8; Prothrombin Time (Protime)PT. 28.5 SECONDS (11.7-14.9)
[2021-09-24 06:53] LABS: ALB/GLOB Ratio 0.7 RATIO (0.9-2.4); AST(SGOT) 457 U/L (15-37); Alanine Aminotransfer ALT/SGPT 379 U/L (13-56); Albumin, Serum 2.4 g/dL (3.2-5.0); Alkaline Phosphatase 690 U/L (45-117); Anion Gap 7 (5-15); BUN 21 mg/dL (7-18); BUN/Creat Ratio 9.3 RATIO (10-20); Calcium,Total 8.3 mg/dL (8.5-10.1); Chloride 118 mmol/L (98-107); Creatinine, Serum 2.25 mg/dL (0.55-1.02); EST Glomerular Filtration Rate 23 mL/min (>60); Est Glom Filt Rate - Afr Amer 28 mL/min (>60); Globulin 3.4 g/dL (2.2-4.2); Glucose 81 mg/dL (74-106); Potassium 4.2 mmol/L (3.5-5.1); Protein, Total 5.8 g/dL (6.4-8.2); Sodium Level 143 mmol/L (136-145)
--- NOTE | 2021-09-24 09:33 | PCM.DC ---
Discharge Instructions Diet Discharge Diet: Low fat / Low cholesterol Activity Discharge Activity: Return to Normal Activity and May Not Drive Dressing / Incision Call your doctor if you observe: Fever of 101 or Higher, Coldness, Increased Pain, Numbness or Tingling, Change in Color, Inability to urinate, Inability to have a bowel movement, Using more than 1 pad per hour, Shortness of breath, Dizziness, Fainting spells, Swelling in the ankles, Chest pain, Prolonged hiccupping, Increased palpitations (irregular heartbeat), Calf discomfort and Uncontrolled pain Follow Up Care Test Results: Test results from this visit will be discussed in further detail at your follow-up appointment, if applicable. Discharge Plan Admission Admit Date/Time: 09/19/21 00:07 Primary Reason for Your Visit: ADRIÁN Attending Provider: Иван Riggins Primary Care Provider: Fatmata Bains Consulting Providers: Valentino Guerrier ; José Miguel Broussard Discharge Orders/Prescriptions Prescriptions: New sennosides-docusate sodium [Stool Softener-Stimulant Laxat] 8.6-50 mg Tablet 2 tab PO BID PRN PRN (Reason: Constipation) Qty: 0 RF: 0 prednisone 5 mg Tablet 15 mg PO BREAKFAST Qty: 0 RF: 0 warfarin [Jantoven] 2.5 mg Tablet 2.5 mg PO DINNER Qty: 30 RF: 0 ciprofloxacin HCl 500 mg Tablet 500 mg PO Q18H Qty: 0 RF: 0 Continued prednisone 10 MG tablet 20 mg PO DAILY RF: 0 cyanocobalamin (vitamin B-12) 500 MCG tablet 1,000 mcg PO DAILY@0800 RF: 0 omeprazole 20 MG capsule 20 mg PO DAILY RF: 0 cholecalciferol (vitamin D3) [Vitamin D3] 1,000 UNIT tablet 1,000 unit PO DAILY RF: 0 morphine [Solange] 20 MG capsule,extend.release pellets 20 mg PO BID RF: 0 duloxetine 60 MG capsule 60 mg PO QHS RF: 0 Atrovent HFA 12.9 GM inhaler 1 puff inhalation PRN PRN (Reason: Sob &/Or Wheezing) RF: 0 diltiazem HCl [Cardizem] 120 MG tablet 360 mg PO DAILY RF: 0 amitriptyline 10 MG tablet 10 mg PO DAILY RF: 0 buspirone 10 mg tablet 10 mg PO QHS RF: 0 doxycycline monohydrate 100 mg capsule 100 mg PO BID RF: 0 oxycodone 5 mg tablet 5 - 10 mg PO BID RF: 0 Probiotic 3 billion cell Capsule 3,000 mmu cells PO DAILY RF: 0 buspirone 10 mg tablet 5 mg PO DAILY RF: 0 Discontinued Coumadin tablet 5 mg PO DAILY RF: 0 ciprofloxacin HCl 750 mg tablet 750 mg PO BID RF: 0 Referrals / Follow Up: Herson,Fatmata, [Primary Care Provider] - Disposition Disposition (needs filled in before D/C Order can be placed): Home Health Service
[2021-09-24] MEDS: predniSONE 5 MG Tablet 15 MG PO (09:34)
[2021-09-24] MEDS: Amitriptyline 10 MG Tablet PO (09:35)
[2021-09-24] MEDS: Pantoprazole Sodium 20 MG Tablet PO (09:36)
[2021-09-24] MEDS: Cholecalciferol (VIT D3) 25 MCG TABLET (1,000 UNITS) PO (09:36)
[2021-09-24] MEDS: Doxycycline 100 MG CAPSULE PO (09:36)
[2021-09-24] MEDS: Cyanocobalamin 500 MCG Tablet 1000 MCG PO (09:37)
[2021-09-24] MEDS: busPIRone 5 MG Tablet PO (09:37)
[2021-09-24] MEDS: morphine SR 15 MG Tablet PO (09:49)
[2021-09-24] MEDS: Menthol/Lanolin/Calamine/Znox 113 GM Tube 1 APPLIC TOPICAL (09:50)
[2021-09-24 10:00] VITALS: BP 148/72; PULSE 88; RESP 20; TEMP 36.6; O2SAT 97
--- NOTE | 2021-09-24 11:16 | PN.RENAL_ITS ---
Subjective Subjective Following for ADRIÁN Sitting in recliner chair. States feeling better overall but still has occasional nausea. No vomiting. No diarrhea Objective Data Objective Data Vital Signs: Vital Signs Temp Pulse Resp BP Pulse Ox 97.9 F 89 16 145/82 H 96 09/24/21 02:26 09/24/21 02:26 09/24/21 02:26 09/24/21 02:26 09/24/21 02:26 Oxygen Flow Rate (L/min) 98 Oxygen Delivery Method Room Air Weight: 112.8 kg Body Mass Index (BMI) 44.0 Intake & Output: Intake and Output for Last 24 Hours 09/22/21 09/23/21 09/24/21 23:59 23:59 23:59 Intake Total 1535.00 / 1535.00 1104.17 / 1104.17 945 / 945 Output Total 900 / 900 1000 / 1000 Balance 635.00 / 635.00 104.17 / 104.17 945 / 945 Lab / Micro Data Result Diagrams: 09/21/21 05:14 09/24/21 05:32 Labs: Laboratory Results - last 24 hr 09/24/21 05:32: Sodium 143, Potassium 4.2, Chloride 118 H, Carbon Dioxide 18.0 L , Anion Gap 7, BUN 21 H, Creatinine 2.25 H, Estim Creat Clear Calc 20.50, Est GFR (MDRD) Af Amer 28 L, Est GFR (MDRD) Non-Af 23 L, BUN/Creatinine Ratio 9.3 L, Glucose 81, Calcium 8.3 L, Total Bilirubin 0.40, AST 457 H, ALT 379 H, Alkaline Phosphatase 690 H, Total Protein 5.8 L, Albumin 2.4 L, Globulin 3.4, Albumin/Globulin Ratio 0.7 L 09/24/21 05:32: PT 28.5 H, INR 2.8 Micro: Microbiology 09/19/21 04:13 Blood Culture (Wb) - Right Hand Bacteria Detection (PCR) - Final Coag Negative Staph 09/19/21 04:13 Blood Culture (Wb) - Right Hand Blood Culture - Final Coag Negative Staph 09/19/21 04:01 Blood Culture (Wb) - Anticubital Left Blood Culture - Final No growth in 5 days. 09/20/21 18:35 Blood Culture (Wb) - Left Hand Blood Culture - Preliminary No growth in 48 hours. 09/20/21 18:27 Blood Culture (Wb) - Anticubital Left Blood Culture - Preliminary No growth in 48 hours. Physical Exam Narrative Alert awake oriented x 3 no obvious distress Normal s1s2, no murmurs lungs clear anteriorly abdomen soft, no organomegaly 1-2+ edema b/l LE Assessment & Plan Assessment/Plan (1) ADRIÁN (acute kidney injury): PLAN: -Nonoliguric ADRIÁN likely all related to hypotension. Last known baseline creatinine from March 2021 was normal at 0.9mg/dL. -Serum creatinine peaked at 3.18 mg/dL on 09/19/2021. -Urine analysis appears fairly benign. Noncontrast CT did not show any hydronephrosis. - elevated liver enzymes felt to be from fluconazole. US unremarkable -Suspect ADRIÁN is secondary to ATN. -There has been some fluctuation of serum creatinine over last few days but overall trajectory is improving. Creatinine 2.25 mg/dL today. -Blood pressure is stable. -IV fluids were continued as her oral intake was still marginal. -Possible discharge today, will stop IV fluids -We will arrange for hospital follow up once she is discharged.
--- NOTE | 2021-09-24 13:14 | CON.PCM.ID_ITS ---
Assessment & Plan Assessment/Plan (1) Morbid obesity with BMI of 40.0-44.9, adult: PLAN: Patient does have a history of right prosthetic joint infection managed at [facility]. I was asked to address the need for antifungal therapy. Given the renal and liver dysfunction I would hold off on antifungal therapy and have Dr. Quiroga [facility] readdress the need for antifungal therapy. I did advise the patient to take the ciprofloxacin once a day instead of twice a day because of her renal dysfunction and obviously continue doxycycline under the direction of the [facility] physician. HPI Consult Data Date of Consult: 09/24/21 HPI Narrative HPI Narrative: JOSAFAT JEFFRIES, is a 61 F who presentsWith worsening renal function and markedly elevated liver function test.With worsening renal function and markedly elevated liver function test.Patient has a complicated history of multiple right hip surgeries related to infection managed at [facility]. In talking to the patient the right hip prosthetic joint infection occurred roughly 1 year ago on patient's been on oral suppressive antibiotics in the form of ciprofloxacin plus doxycycline since May 2021. More recently in July 2021 patient was started/added fluconazole by the infectious disease physician at [facility] Dr. Quiroga.Patient has a complicated history of multiple right hip surgeries related to infection managed at [facility]. In talking to the patient the right hip prosthetic joint infection occurred roughly 1 year ago on patient's been on oral suppressive antibiotics in the form of ciprofloxacin plus doxycycline since May 2021. More recently in July 2021 patient was started/added fluconazole by the infectious disease physician at [facility] Dr. Quiroga. Patient is admitted with acute renal injury and markedly elevated liver function test. Patient denies any nausea or vomiting currently. She has had nausea intermittently during this admission. Denies any right hip pain or any fevers. Patient has been on fluconazole for the past 2 months.Patient is admitted with acute renal injury and markedly elevated liver function test. Patient denies any nausea or vomiting currently. She has had nausea intermittently during this admission. Denies any right hip pain or any fevers. Patient has been on fluconazole for the past 2 months. [facility] Medical History (Updated 09/19/21 @ 02:02 by Vickie Ramirez) Anemia Antiphospholipid antibody syndrome Anxiety Aortic mural thrombus Cervical myelopathy Depression Diabetes FH: total knee replacement Hypertension Kidney disease Kidney stones Non-pressure chronic ulcer of skin of other sites with fat layer exposed Osteoporosis Rheumatoid arthritis Rheumatoid idiopathic pulmonary fibrosis Thrombosis, arteries, femoral TIA (transient ischemic attack) Home Medications cholecalciferol (vitamin D3) [Vitamin D3] 1,000 unit PO DAILY 05/09/15 [History Last Taken Unknown] cyanocobalamin (vitamin B-12) 1,000 mcg PO DAILY@0800 05/09/15 [History Last Taken Unknown] morphine [Solange] 20 mg PO BID 05/09/15 [History Last Taken Unknown] omeprazole 20 mg PO DAILY 05/09/15 [History Last Taken Unknown] prednisone 20 mg PO DAILY 05/09/15 [History Last Taken Unknown] Atrovent HFA 1 puff INHALATION PRN PRN 08/21/16 [History Last Taken Unknown] duloxetine 60 mg PO QHS 08/21/16 [History Last Taken Unknown] diltiazem HCl [Cardizem] 360 mg PO DAILY 09/06/16 [History Last Taken Unknown] amitriptyline 10 mg PO DAILY 03/09/18 [History Last Taken Unknown] Probiotic 3,000 mmu cells PO DAILY 09/18/21 [History Last Taken Unknown] buspirone 10 mg PO QHS 09/18/21 [History Last Taken Unknown] doxycycline monohydrate 100 mg PO BID 09/18/21 [History Last Taken Unknown] oxycodone 5 - 10 mg PO BID 09/18/21 [History Last Taken Unknown] buspirone 5 mg PO DAILY 09/21/21 [History Last Taken Unknown] ciprofloxacin HCl 500 mg PO Q18H #0 tab 09/24/21 [Rx Last Taken Unknown] prednisone 15 mg PO BREAKFAST #0 tab 09/24/21 [Rx Last Taken Unknown] sennosides-docusate sodium [Stool Softener-Stimulant Laxat] 2 tab PO BID PRN PRN #0 tab 09/24/21 [Rx Last Taken Unknown] warfarin [Jantoven] 2.5 mg PO DINNER #30 tab 09/24/21 [Rx Last Taken Unknown] Allergy/AdvReac Type Severity Reaction Status Date / Time abatacept [From Orencia] Allergy Other Verified 09/18/21 23:39 celecoxib [From Celebrex] Allergy Hives Verified 09/18/21 23:39 golimumab [From Simponi] Allergy Other Verified 09/18/21 23:39 infliximab [From Remicade] Allergy Rash Verified 09/18/21 23:39 rituximab [From Rituxan] Allergy Anaphylaxis Verified 09/18/21 23:39 rofecoxib [From Vioxx] Allergy Hives Verified 09/18/21 23:39 shellfish derived Allergy Hives Verified 09/18/21 23:39 adalimumab [From Humira] AdvReac Other Verified 09/18/21 23:39 hydroxychloroquine sulfate AdvReac Other Verified 09/18/21 23:39 [From Plaquenil] latex AdvReac Rash Verified 09/18/21 23:39 Family History Other Cancer Surgical History History of appendectomy History of cholecystectomy History of left hip replacement S/P cervical spinal fusion S/P total right hip arthroplasty Social History Smoking Status: Never smoker Lab / Micro Data Result Diagrams: 09/21/21 05:14 09/24/21 05:32 Labs: Laboratory Results - last 24 hr 09/24/21 05:32: Sodium 143, Potassium 4.2, Chloride 118 H, Carbon Dioxide 18.0 L , Anion Gap 7, BUN 21 H, Creatinine 2.25 H, Estim Creat Clear Calc 20.50, Est GFR (MDRD) Af Amer 28 L, Est GFR (MDRD) Non-Af 23 L, BUN/Creatinine Ratio 9.3 L, Glucose 81, Calcium 8.3 L, Total Bilirubin 0.40, AST 457 H, ALT 379 H, Alkaline Phosphatase 690 H, Total Protein 5.8 L, Albumin 2.4 L, Globulin 3.4, Albumin/Globulin Ratio 0.7 L 09/24/21 05:32: PT 28.5 H, INR 2.8 Micro: Microbiology 09/19/21 04:13 Blood Culture (Wb) - Right Hand Bacteria Detection (PCR) - Final Coag Negative Staph 09/19/21 04:13 Blood Culture (Wb) - Right Hand Blood Culture - Final Coag Negative Staph 09/19/21 04:01 Blood Culture (Wb) - Anticubital Left Blood Culture - Final No growth in 5 days. 09/20/21 18:35 Blood Culture (Wb) - Left Hand Blood Culture - Preliminary No growth in 48 hours. 09/20/21 18:27 Blood Culture (Wb) - Anticubital Left Blood Culture - Preliminary No growth in 48 hours.
--- NOTE | 2021-09-24 13:25 | NURSING ---
Infectious dz Doctor came to see pt and okay to have pt go home. Dr. Riggins did talk to ID and is aware that pt is okay to go home per ID
--- NOTE | 2021-09-24 13:40 | PCM.DC.SUM ---
Providers Date of Admission: 09/19/21 Date of Discharge: 09/24/21 Primary Care Physician: Dr. Fatmata Bains, DO Consultations 09/19/21 01:44 Consult: Nephrology Routine Consulting Provider: Valentino Guerrier Reason for Consult: adrián EMERGENT Consult: No MD Notified: Yes Date Notified: 09/19/21 Time Notified: 08:08 Method of Notification: Answering Service Reason For Visit: ADRIÁN Diagnosis Discharge Diagnosis (1) ADRIÁN (acute kidney injury): Status: Acute Code(s): N17.9 - Acute kidney failure, unspecified Medications at Discharge Home Medications cholecalciferol (vitamin D3) [Vitamin D3] 1,000 unit PO DAILY 05/09/15 cyanocobalamin (vitamin B-12) 1,000 mcg PO DAILY@0800 05/09/15 morphine [Solange] 20 mg PO BID 05/09/15 omeprazole 20 mg PO DAILY 05/09/15 prednisone 20 mg PO DAILY 05/09/15 Atrovent HFA 1 puff INHALATION PRN PRN 08/21/16 duloxetine 60 mg PO QHS 08/21/16 diltiazem HCl [Cardizem] 360 mg PO DAILY 09/06/16 amitriptyline 10 mg PO DAILY 03/09/18 Probiotic 3,000 mmu cells PO DAILY 09/18/21 buspirone 10 mg PO QHS 09/18/21 doxycycline monohydrate 100 mg PO BID 09/18/21 oxycodone 5 - 10 mg PO BID 09/18/21 buspirone 5 mg PO DAILY 09/21/21 ciprofloxacin HCl [Cipro] 500 mg PO DAILY #14 tab 09/24/21 prednisone 15 mg PO BREAKFAST #0 tab 09/24/21 sennosides-docusate sodium [Stool Softener-Stimulant Laxat] 2 tab PO BID PRN PRN #0 tab 09/24/21 warfarin [Jantoven] 2.5 mg PO DINNER #30 tab 09/24/21 Hospital Course Summary of Care Provided Hospital Course: This 61-year-old female with multiple comorbidities including rheumatoid arthritis with lung complication on prednisone therapy, antiphospholipid syndrome on warfarin was admitted with abnormal labs, liver chemistry tests, GGT very high. Patient also had high creatinine and was admitted with ADRIÁN. She has generalized weakness since July 2021 1. Nonoliguric ADRIÁN suspected secondary to ATN/hypotension. Patient last known baseline BUN/creatinine from 09/06/2021 was [address] [facility]. Labs in [facility] on 09/04 showed 39/3.44. Microbiology Lab Technician was consulted and comanaged. Kidney function improving. Antibiotics doses changed as per the kidney function. Advised to follow-up with budget assistant within 1 week after discharge. 2. Acute liver injury most likely due to DILI, Diflucan: Patient has been on Diflucan. As per notes it seems, Diflucan was resumed on September 20 and again it got worse. Diflucan discontinued. CMP performed at [facility] on 09/18/2021 showed alkaline phosphatase of 384; AST of 476; ALT of 321. Liver chemistry was followed daily shows improvement in transaminases. Total bilirubin normal. US unremarkable. Noted enlarged biliary duct patient is status post cholecystectomy. Advised follow-up with livestock speculator/news videographer as an outpatient. 3. Coagulase-negative staph bacteremia which is contaminant. 1 of 2 cultures + showing coag negative staph. Which appears to be coag negative staph and likely contaminant. Given the patient's extensive history of septic joint, ID consulted for further opinion. Patient on antibiotic as per ID recommendation. I talked to the ID practice consultant Dr. Broussard and he said there is no oral formula for echinocandins. At the time of discharge I talked to her asked to follow-up with Dr. Quiroga, ID practice consultant in [facility] in 1 week for antibiotic reconciliation. 4. Septic joint The patient had numerous surgeries, total 5 since October 22, 2020 when she had hip replacement. After that she went into septic shock on November 06. Her last surgery was in July 2021. She had muscle flap reconstructive surgery. CAT scan showed hematoma as well as subcutaneous emphysema. On evaluation, there is no obvious clinical sign of decompensation. Anticipate patient had a very extensive surgery that has not had complete resolution. Currently patient is on Cipro doxycycline and micafungin 5. Anemia hemoglobin on 09/19/2019 to perform at [facility] showed a level of 10.5. MCV was 77. Latest H&H 7.9/26.6 Iron level 79 (normal 35-150) TIBC 375 (normal 240 to 445); percentage saturation 21 (normal 25-41). 6. Aortic mural thrombus Patient had supratherapeutic INR and warfarin was held. Subsequently INR was followed. INR is therapeutic on warfarin 2.5 mg daily. 8. Rheumatoid arthritis Prednisone Discharge medication reconciliation done. Discharge follow-up instructions completed. Discharge process discussed with the patient and all questions were answered to patient's satisfaction. Total time spent, exact 35 minutes on discharge meds Reconciliation, examination, coordination of care with nurses and ancillary staff, review of imaging and blood test and discussion with the patient on follow-up instructions. Physical Exam Narrative General: Alert, Oriented x3, Cooperative HEENT: Atraumatic, PERRLA, EOMI, Normocephalic Oral: No Gingival or Mucosal Lesions/ Ulcerations Neck: Supple, No JVD, Negative Carotid Bruits Lungs: Air entry diminished in bilateral lung bases. No crepitation/rhonchi Cardiovascular: Regular rate, Regular Rhythm, Normal S1, Normal S2, No murmurs Abdomen: Bowel Sounds Present, Soft, Non Tender, Non-Distended : No renal angle tenderness. No suprapubic tenderness. Extremities: No edema, Capillary Refill Less than 3 Seconds Skin: No rashes, No breakdown Musculoskeletal: Surgical scar for complicated surgery on right posterolateral thigh up to mid thigh. ROM at right thigh restricted. Uses walker. Neurological: Cranial nerves II-XII grossly intact, DTR 2+/4. Muscle strength of right thigh and hip 4/5. Psych/Mental Status: Normal Affect, Appropriate Weight / BMI Weight Weight: 248 lb 10.903 oz Body Mass Index (BMI) 44.0 ABG / Lab / Microbiology Data Result Diagrams: 09/21/21 05:14 09/24/21 05:32 Laboratory: Laboratory Results - last 24 hr 09/23/21 05:18: Sodium 141, Potassium 4.5, Chloride 118 H, Carbon Dioxide 16.0 L, Anion Gap 7, BUN 21 H, Creatinine 2.38 H, Estim Creat Clear Calc 19.38, Est GFR (MDRD) Af Amer 27 L, Est GFR (MDRD) Non-Af 22 L, BUN/Creatinine Ratio 8.8 L, Glucose 78, Calcium 8.7, Total Bilirubin 0.30, AST 303 H, ALT 397 H, Alkaline Phosphatase 477 H, Total Protein 5.9 L, Albumin 2.4 L, Globulin 3.5, Albumin/Globulin Ratio 0.7 L 09/24/21 05:32: Sodium 143, Potassium 4.2, Chloride 118 H, Carbon Dioxide 18.0 L, Anion Gap 7, BUN 21 H, Creatinine 2.25 H, Estim Creat Clear Calc 20.50, Est GFR (MDRD) Af Amer 28 L, Est GFR (MDRD) Non-Af 23 L, BUN/Creatinine Ratio 9.3 L, Glucose 81, Calcium 8.3 L, Total Bilirubin 0.40, AST 457 H, ALT 379 H, Alkaline Phosphatase 690 H, Total Protein 5.8 L, Albumin 2.4 L, Globulin 3.4, Albumin/Globulin Ratio 0.7 L 09/24/21 05:32: PT 28.5 H, INR 2.8 Microbiology: Microbiology 09/20/21 18:35 Blood Culture (Wb) - Left Hand Blood Culture - Preliminary No growth in 48 hours. 09/20/21 18:27 Blood Culture (Wb) - Anticubital Left Blood Culture - Preliminary No growth in 48 hours. 09/19/21 04:01 Blood Culture (Wb) - Anticubital Left Blood Culture - Preliminary No growth in 48 hours. 09/19/21 04:13 Blood Culture (Wb) - Right Hand Bacteria Detection (PCR) - Final Coag Negative Staph 09/19/21 04:13 Blood Culture (Wb) - Right Hand Blood Culture - Preliminary Coag Negative Staph Meaningful Use Info Meaningful Use Diagnoses (Choose all that apply): None applicable Discharge Plan Admission Admit Date/Time: 09/19/21 00:07 Primary Reason for Your Visit: ADRIÁN Attending Provider: Иван Riggins Primary Care Provider: Fatmata Bains Consulting Providers: Valentino Guerrier ; José Miguel Broussard Discharge Orders/Prescriptions Prescriptions: New sennosides-docusate sodium [Stool Softener-Stimulant Laxat] 8.6-50 mg Tablet 2 tab PO BID PRN PRN (Reason: Constipation) Qty: 0 RF: 0 prednisone 5 mg Tablet 15 mg PO BREAKFAST Qty: 0 RF: 0 warfarin [Jantoven] 2.5 mg Tablet 2.5 mg PO DINNER Qty: 30 RF: 0 ciprofloxacin HCl [Cipro] 500 mg tablet 500 mg PO DAILY Qty: 14 RF: 0 Continued prednisone 10 MG tablet 20 mg PO DAILY RF: 0 cyanocobalamin (vitamin B-12) 500 MCG tablet 1,000 mcg PO DAILY@0800 RF: 0 omeprazole 20 MG capsule 20 mg PO DAILY RF: 0 cholecalciferol (vitamin D3) [Vitamin D3] 1,000 UNIT tablet 1,000 unit PO DAILY RF: 0 morphine [Solange] 20 MG capsule,extend.release pellets 20 mg PO BID RF: 0 duloxetine 60 MG capsule 60 mg PO QHS RF: 0 Atrovent HFA 12.9 GM inhaler 1 puff inhalation PRN PRN (Reason: Sob &/Or Wheezing) RF: 0 diltiazem HCl [Cardizem] 120 MG tablet 360 mg PO DAILY RF: 0 amitriptyline 10 MG tablet 10 mg PO DAILY RF: 0 buspirone 10 mg tablet 10 mg PO QHS RF: 0 doxycycline monohydrate 100 mg capsule 100 mg PO BID RF: 0 oxycodone 5 mg tablet 5 - 10 mg PO BID RF: 0 Probiotic 3 billion cell Capsule 3,000 mmu cells PO DAILY RF: 0 buspirone 10 mg tablet 5 mg PO DAILY RF: 0 Discontinued Coumadin tablet 5 mg PO DAILY RF: 0 ciprofloxacin HCl 750 mg tablet 750 mg PO BID RF: 0 Referrals / Follow Up: Fatmata Bains DO [Primary Care Provider] - Within 2 Weeks (Friday @ 0800AM) Valentino Guerrier MD [STAFF PHYSICIAN] - Within 1 Week (FOR ADRIÁN with BMP Appointment is September @ 04:15PM. ) Pranav Jurado DO [STAFF PHYSICIAN] - Within 2 Weeks (FOR Elevated liver chemistry test, DILI most likely from Diflucan Left message on Dr. Jurado appointment line to have them call patient and set up a appointment within 2 weeks.) Disposition Disposition (needs filled in before D/C Order can be placed): Home Health Service Charges/Coding Visit Charges Inpatient E&M: 40492 Disch Hosp
--- NOTE | 2021-09-24 14:30 | CASEMGMT ---
TC cristi Conroy, spoke with Kelin, aware pt is dc'ing today. Faxed dc instructions and summary at this time.
== END 2021-09-24 14:35 | disposition home health service (06) | DRG 548 ==
LOC: ED 09-19 00:01 → MS3 09-19 00:45
PROVIDERS: Internal Medicine Nephrology; Admitting Provider Hospitalist; Emergency Provider Emergency Medicine; PCP Internal Medicine; Visit Provider Internal Medicine
DX: M00.9 Pyogenic arthritis, unspecified (principal); N17.0 Acute kidney failure with tubular necrosis; R78.81 Bacteremia; D68.61 Antiphospholipid syndrome; E27.40 Unspecified adrenocortical insufficiency; Z68.41 Body mass index [BMI] 40.0-44.9, adult; I51.3 Intracardiac thrombosis, not elsewhere classified; M05.10 Rheumatoid lung disease with rheumatoid arthritis of unspecified site; I95.9 Hypotension, unspecified; E11.9 Type 2 diabetes mellitus without complications; E66.01 Morbid (severe) obesity due to excess calories; B95.7 Other staphylococcus as the cause of diseases classified elsewhere; D64.9 Anemia, unspecified; I10 Essential (primary) hypertension; F41.9 Anxiety disorder, unspecified; R79.1 Abnormal coagulation profile; T84.52XD Infection and inflammatory reaction due to internal left hip prosthesis, subsequent encounter; F32.A Depression, unspecified; Z96.643 Presence of artificial hip joint, bilateral; Z79.01 Long term (current) use of anticoagulants; Z79.899 Other long term (current) drug therapy; Z79.52 Long term (current) use of systemic steroids
CPT/HCPCS: 36415; 74176; 76705; 80053; 80069; 80074; 80202; 81001; 82570; 82962; 83935; 84300; 85025; 85610; 87040; 87149; 97110; 97162; 97166; 97530; 97535; 97802; 99283; J7030; J7040; A4216; J2405

== ENCOUNTER → 2022-02-19 | Outpatient (CLI) | payer MEDICARE, SELFPAY ==
--- NOTE | 2022-02-19 16:24 | MRI_ITS ---
STUDY: MR CHOLANGIOPANCREATOGRAPHY (MRCP) REASON FOR EXAM: Female, 61 years old. PAIN CBD STONES PANCREATITIS CBD DILATATION TECHNIQUE: Standard MRCP technique was utilized. 3-D postprocessing images were obtained. COMPARISON: CT 09/19/21. FINDINGS: There are calcifications of the abdominal aorta. This is consistent for atherosclerotic disease. There is NO abdominal aortic aneurysm. Vascular workup can be obtained based on clinical correlation. There is T2 hyperintensities of the left and right kidney. These are consistent for cysts. No follow up required. Scoliosis of the lumbar spine. Gall Bladder: There are surgical clips in the gallbladder fossa consistent with a prior cholecystectomy. Cystic duct: Normal with no demonstrated fixed filling defect. Intrahepatic ducts: Normal visualized intrahepatic ducts with no demonstrated fixed filling defect, dilation or stricture. Common hepatic duct: Normal with no demonstrated fixed filling defect, dilation or stricture. Common bile duct: There is dilation of the common bile duct. A common bile duct stone is not seen. The CBD diameter is 7.4 mm. Pancreatic duct: Normal with no demonstrated fixed filling defect, dilation or stricture. MRI/MRCP Abdomen without Contrast IMPRESSION: There is dilation of the common bile duct. A common bile duct stone is not seen. Electronically Signed: Stewart Lizama MD at 18:57 EDT ,
== END | disposition home or self-care (01) ==
LOC: MRI 16:10
PROVIDERS: PCP Internal Medicine; Visit Provider Internal Medicine
DX: K83.8 Other specified diseases of biliary tract (principal)
CPT/HCPCS: 74181

== ENCOUNTER → 2022-04-19 | Outpatient (CLI) | payer MEDICARE, SELFPAY ==
--- NOTE | 2022-04-19 13:52 | US_ITS ---
STUDY: THYROID ULTRASOUND REASON FOR EXAM: Female, 61 years old. NODULE TECHNIQUE: Ultrasound evaluation of the thyroid was performed with real-time and static collado-scale imaging. COMPARISON: 10/09/2020 FINDINGS: RIGHT LOBE: The right lobe of the thyroid gland measures 5 x 1.4 x 1.8 cm. There is a homogeneous echotexture. There is a 7 x 6 x 5 mm complex cyst in the lower pole demonstrating irregular margins and laurence nodular vascularity. LEFT LOBE: The left lobe of the thyroid gland measures 4.4 x 1.5 x 1.4 cm. There is a homogeneous echotexture. There are no demonstrated solid, cystic or complex lesions. ISTHMUS: The isthmus measures 3 mm . The regional lymph nodes are normal. US/Thyroid IMPRESSION: Stable appearance to small nodule in the lower pole of the right lobe of thyroid. No new nodules or other significant abnormality Electronically Signed: Kevin Sebastian MD at 20:37 EDT ,
--- NOTE | 2022-04-19 13:53 | CDU_ITS ---
Reason For Study: Bilateral carotid stenosis Rt. Velocities/BP Lt. Velocities/BP Prox CCA 59.8/11.6 cm/sec. Prox CCA 81.5/12.6 cm/sec. Mid CCA 57.9/13.5 cm/sec. Mid CCA 55.1/12.6 cm/sec. Dist CCA 57/15.4 cm/sec. Dist CCA 67.4/14.5 cm/sec. Prox ICA 53.2/12.6 cm/sec. Prox ICA 31.1/10.2 cm/sec. Mid ICA 44.7/17.3 cm/sec. Mid ICA 67.9/21.2 cm/sec. Dist ICA 39.4/13.3 cm/sec. Dist ICA 56.4/16.8 cm/sec. Rt. ICA/CCA = 0.92. Lt. ICA/CCA = 1.01. Prox ECA 62.6/6.9 cm/sec. Prox ECA 99.8/12.6 cm/sec. Rt. Vert. 39/12.6 cm/sec. Lt. Vert. 53.5/17 cm/sec. Right Extracranial There is intimal thickening but no significant atherosclerotic plaque noted in the right common carotid artery. There is intimal thickening but no significant atherosclerotic plaque noted in the right internal carotid artery. There is intimal thickening but no significant atherosclerotic plaque noted in the right external carotid artery. Antegrade flow is noted in the right vertebral artery. Left Extracranial There is intimal thickening but no significant atherosclerotic plaque noted in the left common carotid artery. There is intimal thickening but no significant atherosclerotic plaque noted in the left internal carotid artery. There is intimal thickening but no significant atherosclerotic plaque noted in the left external carotid artery. Antegrade flow is noted in the left vertebral artery. Procedure Carotid Duplex 81274. This is a Carotid Duplex examination using B-mode, color flow and specral Doppler. Exam performed in department. VL/Carotid Duplex Ultrasound Interpretation Summary Intimal thickening bilateral internal carotid arteries with less than 50% steno sis Less than 50% stenosis bilateral external carotid arteries Patent antegrade vertebral arteries bilaterally No change from the previous examination of October 09, 2020 Ordering Physician: Fatmata Bains Referring Physician: Fatmata Bains Performed By: Ernestina Gil RVT
== END | disposition home or self-care (01) ==
LOC: CVS 13:50
PROVIDERS: PCP Internal Medicine; Referring Provider Internal Medicine; Visit Provider Internal Medicine
DX: I65.23 Occlusion and stenosis of bilateral carotid arteries (principal); E04.1 Nontoxic single thyroid nodule
CPT/HCPCS: 76536; 93880

== ENCOUNTER → 2022-05-03 | Outpatient (CLI) | payer MEDICARE, SELFPAY ==
--- NOTE | 2022-05-03 16:00 | MRI_ITS ---
STUDY: MRI CERVICAL SPINE WITH AND WITHOUT CONTRAST REASON FOR EXAM: Female, 61 years old. SPINAL STENOSIS TECHNIQUE: Standardized fat and water weighted pulse sequences were obtained in the sagittal and axial following administration of 22ml Clariscan via IV. COMPARISON: 07/19/2020 FINDINGS: Normal foramen magnum and brainstem-cervical cord junction. Normal craniovertebral junction. Normal anterior atlantoaxial articulation. Normal odontoid process. Decreased cervical lordosis. Normal vertebral bodies and posterior osseous elements. C2-3: Normal endplates. Normal disc height, signal and morphology. Normal central canal and intervertebral neural foramina. C3-4: Normal endplates. Normal disc height, signal and small right paracentral disc protrusion. Mild narrowing of the central canal and impingement upon ventral surface of the cord normal bilateral neuroforamina C4-5: Narrowed disc space with small central disc protrusion.. Mildly narrowed central canal with impingement upon ventral surface of the cord.. Minor bilateral neuroforaminal encroachment secondary to bony hypertrophy C5-6: Status post anterior cervical discectomy and fusion. Normal central canal and intervertebral neural foramina. C6-7: Normal endplates. Normal disc height, signal and minor bulging of the disc with small right posterolateral/foraminal disc protrusion. Mild narrowing of the central canal.. Moderate right neuroforaminal stenosis and mild narrowing on the left.. C7-T1: Normal endplates. Normal disc height, signal and morphology. Normal central canal and intervertebral neural foramina. On the sagittal T1-weighted enhanced images there is suggestion of enhancement of the endplates at C4-5, C5-6 and C6-7 however this is not associated on the axial views suggesting artifact rather than true pathologic enhancement. This appearance is similar to that seen on prior exam in June 2020. There is no definitive evidence for abnormal enhancement Normal cervical cord. Normal visualized soft tissue structures. MRI/Spine Cervical W/WO Contrast IMPRESSION: Postsurgical changes at C5-6. Mild spinal stenosis at C3-4, C4-5 and C6-7 secondary to disc disease and bony hypertrophy with findings as above. Electronically Signed: Kevin Sebastian MD at 18:26 EST ,
--- NOTE | 2022-05-03 16:01 | MRI_ITS ---
STUDY: MRI THORACIC SPINE WITHOUT CONTRAST REASON FOR EXAM: Female, 61 years old. SPINAL STENOSIS TECHNIQUE: Standardized fat and water weighted pulse sequences were obtained in the sagittal and axial planes. COMPARISON: None. FINDINGS: Normal kyphosis of the thoracic spine. There is no substantial scoliosis. No evidence for acute fracture or subluxation. No focal signal bony abnormalities are observed.. There is mild multilevel narrowing of the disc spaces at T7-8 through T11-12 with mild anterior endplate spurring in association with diffuse desiccation of the discs. There is a tiny central disc protrusion at T2-3 without significant narrowing of spinal canal Tiny central disc protrusion at T7-8 without significant spinal stenosis Small right paracentral/posterolateral disc protrusion at T8-9 mildly narrowing the central canal without cord compression. Mild bulging of the disc at T9-10 and small right posterolateral disc protrusion without significant narrowing of the spinal steve Mild diffuse bulge of the disc at T10-11 and small bilateral foraminal disc protrusions. Normal central canal. Mild bilateral neuroforaminal stenosis l Normal visualized thoracic cord. Normal conus medullaris that terminates at the . The soft tissue structures are unremarkable. MRI/Spine Thoracic (Routine) IMPRESSION: No evidence for acute fracture or significant bony pathology. Spondylosis and multilevel disc degeneration. Disc disease at multiple levels with mild narrowing of the spinal canal 18.9, on the right at T9-T10 and bilateral neuroforaminal stenosis at T10-11 Findings as above Electronically Signed: Kevin Sebastian MD at 20:36 EST ,
[2022-05-06 09:22] LABS: EGFR FINGERSTICK > 60 mL/min (>60)
== END | disposition home or self-care (01) ==
LOC: MRI 15:43
PROVIDERS: PCP Internal Medicine
DX: M48.02 Spinal stenosis, cervical region (principal); M54.14 Radiculopathy, thoracic region
CPT/HCPCS: 72146; 72156; A9575

== ENCOUNTER → 2022-06-12 | Outpatient (CLI) | payer MEDICARE, SELFPAY ==
[2022-06-12 16:35] LABS: Absolute Lymphocyte Count 1.82 X10^3/uL (0.83-4.51); Absolute Neutrophil Count 8.1 X10^3/uL (2.0-7.7); Basophil# 0.11 X10^3/uL; Eosinophil# 0.37 X10^3/uL; Eosinophils% 3.2 % (0-5); Hematocrit 46.7 % (37-47); Hemoglobin 14.5 g/dL (12.0-15.0); Lymphocyte # 1.82 X10^3/ul (0.83-4.51); Mean Corpuscular Hgb 28.7 pg (27.0-32.0); Mean Corpuscular Volume 92.3 fL (81-99); Mean Platelet Vol. 9.5 fl (6.2-12.0); Monocyte# 0.99 X10^3/uL; Monocyte% 8.7 % (0-10); NRBC Flagged by Analyzer 0 % (0-5); Neutrophil # 8.05 X10^3/uL (2.7-7.7); Neutrophil % 70.5 % (47-70); Platelet Count 435 K/mm3 (150-450); RBC Distribution Width CV 16.7 % (11.6-14.6); RBC Distribution Width SD 56.9 fl (35.1-43.9); Red Blood Count 5.06 M/mm3 (4.2-5.4); White Blood Count 11.4 K/mm3 (4.4-11.0)
[2022-06-12 16:42] LABS: International Normalized Ratio 2.3; Prothrombin Time (Protime)PT. 25.3 SECONDS (11.7-14.9)
[2022-06-12 16:56] LABS: Erythrocyte Sedimentation Rate 72 mm/hr (0-30)
[2022-06-12 17:06] LABS: Ammonia < 10.0 umol/L (11-32)
[2022-06-12 17:14] LABS: ALB/GLOB Ratio 0.7 RATIO (0.9-2.4); AST(SGOT) 32 U/L (15-37); Alanine Aminotransfer ALT/SGPT 52 U/L (13-56); Albumin, Serum 3.1 g/dL (3.2-5.0); Alkaline Phosphatase 123 U/L (45-117); Anion Gap 7 (5-15); BUN 14 mg/dL (7-18); Calcium,Total 9.5 mg/dL (8.5-10.1); Chloride 105 mmol/L (98-107); Creatinine, Serum 1.08 mg/dL (0.55-1.02); EST Glomerular Filtration Rate 55 mL/min (>60); Est Glom Filt Rate - Afr Amer 66 mL/min (>60); Ferritin 101 ng/mL (8-252); Globulin 4.3 g/dL (2.2-4.2); Glucose 98 mg/dL (74-106); LDH 248 U/L (84-246); Potassium 3.9 mmol/L (3.5-5.1); Protein, Total 7.4 g/dL (6.4-8.2); Sodium Level 137 mmol/L (136-145)
[2022-06-12 17:38] LABS: HIV - WCH Non-Reactive (Nonreactive)
[2022-06-12 18:34] LABS: Hemoglobin A1c 6.5 % (3.8-5.6)
[2022-06-17 16:08] LABS: Anti-Centromere B Ab <0.2 AI (0.0-0.9); Anti-Chromatin <0.2 AI (0.0-0.9); Anti-Jo <0.2 AI (0.0-0.9); Anti-Scleroderma-70 AB <0.2 AI (0.0-0.9); RNP Ab 0.4 AI (0.0-0.9); SJOGREN'S Anti-SS-A test < 0.2 AI (0.0-0.9); SJOGREN'S Anti-SS-B test < 0.2 AI (0.0-0.9); Smith Ab <0.2 AI (0.0-0.9)
[2022-06-18 11:02] LABS: Anti-Mitochondrial AB <20.0 Units (0.0-20.0); Anti-dsDNA Ab 1 IU/mL (0-9)
[2022-06-19 22:07] LABS: Angiotensin Convert Enzyme < 15 U/L (14-82); Ceruloplasmin 29.9 mg/dL (19.0-39.0); Cytoplasmic Ab (C-ANCA) <1:20 titer (Neg:<1:20); HEPATITIS B SURFACE AG Negative (Negative); Hep C Antibodies <0.1 s/co ratio (0.0-0.9); Hepatitis A IgM Antibody Negative (Negative); Hepatitis B Core AB IgM Negative (Negative)
[2022-06-19 22:16] LABS: AFP, Tumor Marker 3.3 ng/mL (0.0-9.2); Anti-Smooth Muscle ABS 7 Units (0-19); Copper, Serum or Plasma 112 ug/dL (80-158); Haptoglobin 263 mg/dL (37-355); Perinuclear Ab (P-ANCA) <1:20 titer (Neg:<1:20)
== END | disposition home or self-care (01) ==
LOC: LAB 16:02
PROVIDERS: PCP Internal Medicine; Visit Provider Internal Medicine Gastroenterology
DX: K76.9 Liver disease, unspecified (principal); T81.89XD Other complications of procedures, not elsewhere classified, subsequent encounter; Z98.890 Other specified postprocedural states
CPT/HCPCS: 36415; 80053; 80074; 82105; 82140; 82164; 82390; 82525; 82728; 83010; 83036; 83516; 83615; 85025; 85610; 85652; 86140; 86225; 86235; 86256; 86703

== ENCOUNTER → 2022-06-28 | Outpatient (CLI) | payer MEDICARE, SELFPAY ==
[2022-06-28] VITALS (13 sets, daily range): BP systolic 148–195; BP diastolic 84–152; PULSE 55–88; RESP 18–22; TEMP 37.3; O2SAT 88–98; BMI 43.9
--- NOTE | 2022-06-28 07:48 | CT_ITS ---
PROCEDURE: CT DIRECTED CORE LIVER BIOPSY INDICATION: Female, 61 years old. Liver disease PHYSICIAN: Dr. SHON Burnette CONSENT: Written informed consent was obtained having explained the risks, benefits and alternatives in detail with the patient who accepted the risks and agreed to proceed. Laboratory review and clinical assessment was performed. CONSCIOUS SEDATION PROTOCOL: The Drugs used were: 2 mg Versed, IV., and 150 mcg Fentanyl, IV. The sedation time was: 21 minutes. Conscious sedation was started at 9:09 AM and terminated at 9:30 AM. The conscious sedation protocol was independently monitored. RADIATION DOSAGE (If Supplied By Facility): CTDIvol = ( 26 ) mGy, DLP = ( 1007.42 ) mGycm Individualized dose optimization techniques were used for this CT. TECHNIQUE: Using CT image guidance with image documentation, a suitable location in the right lobe of the liver was identified. Using an anterior approach, puncture of the liver was uneventful with an 18-gauge core needle system. 3, 18-gauge core samples were obtained, and submitted in formalin to the pathologist for further assessment. Followup CT scan revealed no distinct sequelae. CT/Biopsy/Inj or Needle Placement IMPRESSION: 1. CT directed core needle biopsy of the liver, using CT image guidance with image documentation as described. 2. Conscious Sedation protocol utilized with independent monitoring. Electronically Signed: Kaz Martinez MD at 10:35 EST ,
[2022-06-28 07:53] LABS: Platelet Count 321 K/mm3 (150-450)
[2022-06-28] MEDS: 0.9% Saline Lock 10 ML Syringe IV ×2 (08:45→09:13)
[2022-06-28 08:58] LABS: Prothrombin Time (Protime)PT. 12.8 SECONDS (11.7-14.9)
[2022-06-28 08:59] LABS: Partial Thromboplast Time 41.3 Seconds (24.1-36.2)
[2022-06-28] MEDS: Midazolam 2 MG/2 ML Syringe IV (09:09)
[2022-06-28] MEDS: fentaNYL 100 MCG/2 ML Ampul IV ×3 (09:09→09:55)
[2022-06-28] MEDS: Lidocaine 1% (20 ml mdv) 20 ML Vial INFILT (09:26)
--- NOTE | 2022-06-28 09:30 | LIVB_PTH ---
PATIENT: JOSAFAT JEFFRIES LOC: CT U#:[id number] AGE/SX: 61/F ROOM: RE06/28/[address]: Dr. Pranav Jurado DO : 1960 BED: DIS: 06/28/2022 SPEC #: [id number] RECD: 06/28/22 09:40 STATUS: ITZEL REJordan #: [id number] LINDA: 06/28/22 09:[address]: Pranav Jurado DEPT: SURGICAL PATHOLOGY RECD BY: Christiana Shah ENTERED: 06/28/22 13:46 SP TYPE: LIVER BX OTHR DR: Dr. Fatmata Bains DO Tissues: Liver, NOS Procedures: PAS with Diastase (control) Trichrome (control) Special Stain Group II PAS Stain (control) Surgery Specimen Level V Retic (control) Iron Stain (control) HEADER OPERATION: CT-guided liver biopsy PRE-OP DIAGNOSIS: Liver disease TISSUE SUBMITTED: Liver 18-gauge x4 MICROSCOPIC DIAGNOSIS Liver, needle core biopsy: Mild portal inflammation without lobular inflammation (grade 1, modified Knodell scoring system). No evidence of fibrosis of cirrhosis. See comment. AM:will 07/01/2022 COMMENT Sections show portal inflammation and focal areas that is confined to portal zones. No significant lobular inflammation is identified. There is focal hepatic macrovesicular steatosis present. Iron stain does not reveal accumulation of intraparenchymal iron. Reticulin stain reveals a normal hepatic architecture. PAS and PASD stains do not reveal accumulation of abnormal proteins. Trichrome stain does not show cirrhosis or fibrosis. All matched controls are appropriate. MICROSCOPIC DESCRIPTION Slides are reviewed. GROSS DESCRIPTION Received in fixative is one container labeled with the patient's name and designated liver. The specimen consists of multiple elongated fragments of lewis tissue that in aggregate measure 2 x 0.3 x 0.1 cm. The specimen is totally submitted in one cassette. / AM:will 06/28/2022 TC:3 CPT: 33436, 16575 x5
[2022-06-28] MEDS: Ondansetron 4 MG/2 ML Vial IV (09:38)
== END | disposition home or self-care (01) ==
PROVIDERS: PCP Internal Medicine; Referring Provider Internal Medicine Gastroenterology; Visit Provider Internal Medicine Gastroenterology
DX: K76.9 Liver disease, unspecified (principal)
CPT/HCPCS: 47000; 36415; 77012; 85049; 85610; 85730; 88307; 88313; 99156; J7050; A4216; J2310; J2405

== ENCOUNTER 2022-06-29 08:27 | Inpatient (IN) | payer MEDICARE, SELFPAY ==
[2022-06-29] VITALS (19 sets, daily range): BP systolic 74–116; BP diastolic 45–80; PULSE 105–131; RESP 20–45; TEMP 36.4–37.1; O2SAT 88–98; BMI 44.4; BMI 43.0
--- NOTE | 2022-06-29 08:39 | CT_ITS ---
INDICATION: abdominal pain -- IV ONLY EXAMINATION: CT ABDOMEN AND PELVIS WITH CONTRAST - CT Abdomen And Pelvis W/ Contrast Injection TECHNIQUE: Helically acquired images were obtained of the abdomen and pelvis following IV contrast. A radiation dose optimization technique was used for this scan. IV Contrast dosage and agent: Oral contrast: 100 cc of Isovue-370 COMPARISON: 09/09/2021. FINDINGS: LOWER CHEST: Compressive atelectatic changes in the lower lungs. Small right pleural effusion. No cardiomegaly or pericardial effusion. LIVER: Significant artifacts limiting the examination. No focal lesion is definitely identified. GALLBLADDER AND BILIARY TREE: Status post cholecystectomy. No intra- or extrahepatic biliary ductal dilation. PANCREAS: No focal cystic or solid mass. SPLEEN: Normal size without focal cystic or solid mass. ADRENAL GLANDS: No nodules. KIDNEYS AND URETERS: Normal renal size and position. No hydronephrosis. PERITONEUM: Mild free fluid around the liver and spleen, paracolic gutters and pelvic region. No other fluid collection. BOWEL: Somewhat distended stomach. Nonspecific fluid-filled small bowel loops. No evidence of bowel obstruction. No evidence of acute diverticulitis. The appendix is not identified. LYMPH NODES: No enlarged mesenteric or retroperitoneal lymph nodes. VESSELS: Aorta is non-dilated. URINARY BLADDER: Unremarkable. REPRODUCTIVE ORGANS: Absent uterus consistent with previous hysterectomy. Severe artifacts in location from bilateral hip arthroplasty limiting the evaluation of the pelvis. ABDOMINAL WALL: Small pockets of air in the subcutaneous fat of the anterior abdominal wall could be due to recent injection. BONES: Degenerative changes in the spine. CT/Abdomen/Pelvis WITH Contrast IMPRESSION: 1. Atelectatic changes in the bases and small right pleural effusion. 2. Mild fluid in the abdomen and pelvis new since the previous examination. 3. No focal acute inflammatory process. Limited evaluation of the right lower quadrant due to significant artifacts. 4. Nonspecific fluid-filled small bowel loops without evidence of bowel obstruction 5. Status post cholecystectomy and hysterectomy. Electronically Signed: Joel Vines MD at 9:45 EST ,
--- NOTE | 2022-06-29 08:39 | EKG12_ITS ---
Test Reason : ABD PAIN Blood Pressure : / mmHG Vent. Rate : 116 BPM Atrial Rate : 116 BPM P-R Int : 130 ms QRS Dur : 074 ms QT Int : 364 ms P-R-T Axes : 048 070 -50 degrees QTc Int : 505 ms Sinus tachycardia with occasional Premature ventricular complexes T wave abnormality, consider inferior ischemia Abnormal ECG Confirmed by BROOKE PERKINS, LEE ([id number]), graphic editor CARLITA ZAMBRANO ([id number]) on 07/01/2022 1:44:57 PM Referred By: Confirmed By:LEE COX MD
[2022-06-29] MEDS: 0.9% Normal Saline 1,000 ML 1000 ML IV (08:48)
--- NOTE | 2022-06-29 08:51 | EX.ED.DYSGE1 ---
HPI History of Present Illness Chief Complaint: Abd Pain Narrative Narrative: Patient had a liver biopsy yesterday. She is presenting with abdominal pain today. No fevers or chills. The pain is right upper quadrant however its throughout her epigastrium. 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 [facility] Medical History Acute renal failure Anemia Antiphospholipid antibody syndrome Anxiety Aortic mural thrombus Cervical myelopathy Depression Diabetes SAMAYOA (dyspnea on exertion) Elevated liver enzymes FH: total knee replacement Hypertension Kidney disease Kidney stones Liver failure Non-pressure chronic ulcer of skin of other sites with fat layer exposed Osteoporosis Rheumatoid arthritis Rheumatoid idiopathic pulmonary fibrosis RUQ abdominal pain Shortness of breath at rest Tachycardia Thrombosis, arteries, femoral TIA (transient ischemic attack) Home Medications morphine 20 mg capsule,extended release pellets (Solange) 10 mg PO DAILY 05/09/15 [History Last Taken Unknown] omeprazole 20 mg capsule,delayed release 20 mg PO DAILY PRN Heartburn 05/09/15 [History Last Taken Unknown] prednisone 10 mg tablet 20 mg PO DAILY 05/09/15 [History Last Taken Unknown] duloxetine 60 mg capsule,delayed release 60 mg PO QHS 08/21/16 [History Last Taken Unknown] diltiazem HCl 120 mg tablet (Cardizem) 360 mg PO DAILY 09/06/16 [History Last Taken Unknown] amitriptyline 10 mg tablet 10 mg PO DAILY 03/09/18 [History Last Taken Unknown] buspirone 10 mg tablet 10 mg PO QHS PRN Anxiety 09/18/21 [History Last Taken Unknown] oxycodone 5 mg tablet 5 mg PO BID 09/18/21 [History Last Taken Unknown] buspirone 10 mg tablet 5 mg PO DAILY Check with primary doctor 09/21/21 [History Last Taken Unknown] warfarin 2.5 mg tablet (Jantoven) 2.5 mg PO DINNER #30 tabs 09/24/21 [Rx Last Taken 06/20/22 17:00] lisinopril 20 mg tablet 20 mg PO DAILY 04/08/22 [History Last Taken Unknown] Allergy/AdvReac Type Severity Reaction Status Date / Time abatacept [From Orencia] Allergy Other Verified 06/29/22 08:31 celecoxib [From Celebrex] Allergy Hives Verified 06/29/22 08:31 golimumab [From Simponi] Allergy Other Verified 06/29/22 08:31 infliximab [From Remicade] Allergy Rash Verified 06/29/22 08:31 rituximab [From Rituxan] Allergy Anaphylaxis Verified 06/29/22 08:31 rofecoxib [From Vioxx] Allergy Hives Verified 06/29/22 08:31 shellfish derived Allergy Hives Verified 06/29/22 08:31 adalimumab [From Humira] AdvReac Other Verified 06/29/22 08:31 hydroxychloroquine sulfate AdvReac Other Verified 06/29/22 08:31 [From Plaquenil] latex AdvReac Rash Verified 06/29/22 08:31 Family History Father CAD (coronary artery disease) Diabetes Mother Breast cancer Lymphoma Other Cancer Surgical History H/O section H/O total hysterectomy History of appendectomy History of bilateral knee replacement History of cardiac cath History of cholecystectomy History of left hip replacement S/P cervical spinal fusion S/P total right hip arthroplasty Social History Smoking Status: Never smoker alcohol intake: never ROS ROS ED ROS Narrative Past medical history: Reviewed Medications: Reviewed Social history: Noncontributory Review of systems: All systems negative except as indicated General: No fever Neck: No neck pain Cardiovascular: No chest pain Respiratory: Chronic dyspnea Gastrointestinal: Abdominal pain as in HPI Genitourinary: No dysuria Musculoskeletal: Chronic joint pain without any change Psych: Anxious Neurological: No weakness or paresthesia Skin: No rash. EXAM Physical Exam Narrative Exam Narrative: Physical exam General: Patient appears in some distress Head: Normocephalic, Atraumatic Eyes: Conjunctiva not pale ENT: Moist mucous membranes Neck: Supple, Nontender, No lymphadenopathy Cardiovascular: Regular tachycardia. No murmur Respiratory: No distress, CTA bilaterally Abdomen: Soft, it is obese. There is tenderness throughout the abdomen but especially in the right upper quadrant. Because of her body habitus I cannot appreciate any kind of fluid wave. There is some guarding but no rebound tenderness. Back: Nontender, Normal Inspection. Negative for: CVA tenderness Extremities: Nontender, No edema Skin: Normal color, No rash Neurological: Alert, Normal Strength, Normal Sensation Psychological: Anxious Const Vital Signs: 06/29/22 08:27 06/29/22 08:35 06/29/22 09:27 Temperature 98.3 F 97.7 F L Temperature Source Oral Oral Pulse Rate 118 H 116 H 106 H Respiratory Rate 20 H 28 H Blood Pressure 85/45 L 101/70 111/71 Blood Pressure Mean 58 80 84 Pulse Ox 94 97 Oxygen Delivery Method Room Air Nasal Cannula Oxygen Flow Rate (L/min) 2 MDM MDM MDM Narrative Medical decision making narrative: A. Problems addressed Hypotension, subcapsular hematoma, hemoperitoneum, postop bleeding, abdominal pain, sepsis. B. Amount and/or complexity of the data (2 out of 3) 1. Any 3 I reviewed the prior note from the biopsy. Blood work ordered and interpreted by me shows a normal hemoglobin of 15.2, the white count is quite elevated at 25.3. She also has slight lactic acidosis, this may be secondary to dehydration or early infection. 2. Independent interpretation of test Telemetry: Sinus tachycardia with a rate in the 1 teens. PVC. EKG: Rate of 116 sinus. PVC is seen. Inferior T wave changes. Normal IA. QTC is slightly elevated 505. Interpreted by emergency Dr. Chest x-ray read by me and radiologist as unremarkable 3. Discussion of management with external healthcare provider-I discussed the patient with hospitalist, I also discussed with Dr. Montalvo from surgery. See below C. Risk of complications and/or morbidity Patient initially presented hypotensive. My worry was from a postop bleed. This certainly showed on the CAT scan which showed abdominal and peritoneal fluid which is likely blood. However she did have leukocytosis, and slight lactic acidosis, this could be an early infection therefore I did treat with antibiotics. She also received IV fluids. She received morphine and Zofran for analgesia and nausea. I talked to surgery, Dr. Montalvo, patient will need serial H&H's and admission. Currently her blood pressure is much improved, but she certainly has the potential to decompensate rapidly. I will repeat a hemoglobin. I will admit her to the hospital. Lab Data Labs: Laboratory Results - last 24 hr 06/29/22 06/29/22 06/29/22 08:40 08:40 08:40 WBC 25.3 H RBC 5.17 Hgb 15.2 H Hct 48.3 H MCV 93.4 MCH 29.4 MCHC 31.5 L RDW Std Deviation 55.5 H RDW Coeff of Emily 16.2 H Plt Count 293 MPV 9.7 Immature Gran % (Auto) 0.700 Neut % (Auto) 87.1 H Lymph % (Auto) 6.0 L Towns % (Auto) 5.5 Eos % (Auto) 0.1 Baso % (Auto) 0.6 Absolute Neuts (auto) 22.0 H Absolute Lymphs (auto) 1.52 Nucleated RBC % 0.1 PT INR Sodium 140 Potassium 4.3 Chloride 105 Carbon Dioxide 24.0 Anion Gap 11 BUN 20 H Creatinine 1.70 H Estim Creat Clear Calc 28.38 Est GFR (MDRD) Af Amer 39 L Est GFR (MDRD) Non-Af 32 L BUN/Creatinine Ratio 11.8 Glucose 101 Lactic Acid Cancelled Calcium 10.0 Total Bilirubin 1.40 H Direct Bilirubin 0.41 H AST 34 ALT 53 Alkaline Phosphatase 123 H Total Protein 6.9 Albumin 2.5 L Globulin 4.4 H Albumin/Globulin Ratio 0.6 L Lipase 71 L 06/29/22 06/29/22 08:50 09:52 WBC RBC Hgb Hct MCV MCH MCHC RDW Std Deviation RDW Coeff of Emily Plt Count MPV Immature Gran % (Auto) Neut % (Auto) Lymph % (Auto) Towns % (Auto) Eos % (Auto) Baso % (Auto) Absolute Neuts (auto) Absolute Lymphs (auto) Nucleated RBC % PT 15.4 H INR 1.3 Sodium Potassium Chloride Carbon Dioxide Anion Gap BUN Creatinine Estim Creat Clear Calc Est GFR (MDRD) Af Amer Est GFR (MDRD) Non-Af BUN/Creatinine Ratio Glucose Lactic Acid 2.4 H* Calcium Total Bilirubin Direct Bilirubin AST ALT Alkaline Phosphatase Total Protein Albumin Globulin Albumin/Globulin Ratio Lipase Radiography Diagnostic Testing: Clinical Impression(s) from Imaging Studies Abdomen/Pelvis CT 06/29/22 08:39 IMPRESSION: 1. Atelectatic changes in the bases and small right pleural effusion. 2. Mild fluid in the abdomen and pelvis new since the previous examination. 3. No focal acute inflammatory process. Limited evaluation of the right lower quadrant due to significant artifacts. 4. Nonspecific fluid-filled small bowel loops without evidence of bowel obstruction 5. Status post cholecystectomy and hysterectomy. Electronically Signed: Joel Vines MD at 9:45 EST , Chest X-Ray 06/29/22 09:27 IMPRESSION: Hypoventilatory and atelectatic changes in the lung bases. Electronically Signed: Joel Vines MD at 9:51 EST , EKG Initial EKG: Comments: See MDM Critical Care Time Critical Care Time: Yes Critical care time (excluding procedures): 30-74 minutes, Including time spent:, Discussing w/Patient &/or Family/Patient Observer, Discussing w/Consultants, Arranging Admission or Transfer, Performing Direct Patient Care at Bedside and - (Critical care time is 35 minutes. Patient was hypotensive with postop intraperitoneal bleeding and significant leukocytosis and lactic acidosis.) Discharge Plan Triage Chief Complaint: Abd Pain ED Provider: Sohan Mondragon Dx/Rx/DC Orders Clinical Impression: Acute hypotension, Acidosis, lactic, Post-op bleeding, Abdominal pain, Leukocytosis Prescriptions: No Action lisinopril 20 mg tablet 20 mg PO DAILY prednisone 10 MG tablet 20 mg PO DAILY omeprazole 20 MG capsule 20 mg PO DAILY PRN (Reason: Heartburn) morphine [Solange] 20 MG capsule,extend.release pellets 10 mg PO DAILY duloxetine 60 MG capsule 60 mg PO QHS diltiazem HCl [Cardizem] 120 MG tablet 360 mg PO DAILY amitriptyline 10 MG tablet 10 mg PO DAILY buspirone 10 mg tablet 10 mg PO QHS PRN (Reason: Anxiety) oxycodone 5 mg tablet 5 mg PO BID Label Comments: TAKE 1 TABLET BY MOUTH EVERY 4 HOURS NEEDED FOR UP TO 5 DAYS buspirone 10 mg tablet 5 mg PO DAILY Label Comments: TAKE 1 TO 2 TABLETS BY MOUTH THREE TIMES DAILY (NOT TO EXCEED 60MG (6 TABS) PER DAY) warfarin [Jantoven] 2.5 mg Tablet 2.5 mg PO DINNER Qty: 30 0RF Primary Care Provider: Fatmata Bains Referrals: Fatmata Bains DO [Primary Care Provider] -
[2022-06-29 08:53] LABS: Absolute Lymphocyte Count 1.52 X10^3/uL (0.83-4.51); Basophil# 0.15 X10^3/uL; Basophil% 0.6 % (0-1); Eosinophil# 0.03 X10^3/uL; Eosinophils% 0.1 % (0-5); Hematocrit 48.3 % (37-47); Hemoglobin 15.2 g/dL (12.0-15.0); Lymphocyte # 1.52 X10^3/ul (0.83-4.51); Mean Corp Hgb Conc 31.5 g/dL (32-36); Mean Corpuscular Hgb 29.4 pg (27.0-32.0); Mean Corpuscular Volume 93.4 fL (81-99); Mean Platelet Vol. 9.7 fl (6.2-12.0); Monocyte# 1.38 X10^3/uL; Monocyte% 5.5 % (0-10); NRBC Flagged by Analyzer 0.1 % (0-5); Neutrophil # 22.04 X10^3/uL (2.7-7.7); Neutrophil % 87.1 % (47-70); POSITIVE DIFFERENTIAL YES; Platelet Count 293 K/mm3 (150-450); RBC Distribution Width CV 16.2 % (11.6-14.6); RBC Distribution Width SD 55.5 fl (35.1-43.9); Red Blood Count 5.17 M/mm3 (4.2-5.4); White Blood Count 25.3 K/mm3 (4.4-11.0)
[2022-06-29 08:54] LABS: Scan Indicated on CBC? Y/N YES- FLAGS NOTED
[2022-06-29 09:05] LABS: International Normalized Ratio 1.3; Prothrombin Time (Protime)PT. 15.4 SECONDS (11.7-14.9)
[2022-06-29 09:16] LABS: ALB/GLOB Ratio 0.6 RATIO (0.9-2.4); AST(SGOT) 34 U/L (15-37); Alanine Aminotransfer ALT/SGPT 53 U/L (13-56); Albumin, Serum 2.5 g/dL (3.2-5.0); Alkaline Phosphatase 123 U/L (45-117); Anion Gap 11 (5-15); BUN 20 mg/dL (7-18); BUN/Creat Ratio 11.8 RATIO (10-20); Bilirubin, Direct 0.41 mg/dL (0.00-0.30); Chloride 105 mmol/L (98-107); EST Glomerular Filtration Rate 32 mL/min (>60); Est Glom Filt Rate - Afr Amer 39 mL/min (>60); Estimated Creatinine Clearance 28.38 ml/min; Globulin 4.4 g/dL (2.2-4.2); Glucose 101 mg/dL (74-106); Lipase 71 U/L (73-393); Potassium 4.3 mmol/L (3.5-5.1); Protein, Total 6.9 g/dL (6.4-8.2); Sodium Level 140 mmol/L (136-145)
[2022-06-29] MEDS: Ondansetron 4 MG/2 ML Vial IV ×2 (09:16→17:08)
[2022-06-29] MEDS: Morphine 2 MG/ML Syringe IV (09:16)
--- NOTE | 2022-06-29 09:27 | RAD_ITS ---
INDICATION: [ EXAMINATION/TECHNIQUE: X-RAY - XR Chest 1 View COMPARISON: 01/11/2021. FINDINGS: LINES/DEVICES: None. LUNGS: Hypoventilatory changes and atelectatic changes in the right lung base. Mild atelectatic changes in the left lung base. No evidence of pleural effusions. MEDIASTINUM AND CARDIOVASCULAR STRUCTURES: Borderline cardiac silhouette. Widening of the mediastinum probably exaggerated by patient''s positioning. BONES AND SOFT TISSUES: Right shoulder arthroplasty unchanged. Status post anterior fusion of the lower cervical spine. RAD/Chest 1 View (Portable) IMPRESSION: Hypoventilatory and atelectatic changes in the lung bases. Electronically Signed: Joel Vines MD at 9:51 EST ,
[2022-06-29 10:30] LABS: Lactic Acid 2.4 mmol/L (0.4-1.9)
--- NOTE | 2022-06-29 10:30 | ED.RN ---
lab called lactic of 2.4. dr booth
[2022-06-29] MEDS: Morphine 4 MG/ML Syringe IV ×2 (10:41→12:45)
[2022-06-29 11:02] LABS: Hematocrit 49.9 % (37-47); Hemoglobin 15.5 g/dL (12.0-15.0)
--- NOTE | 2022-06-29 12:13 | PCM.HP.STD ---
[facility] - [facility] Date of Service: 06/29/22 Chief Complaint: abdominal pain [facility] Narrative JOSAFAT JEFRFIES, is a 61 F who presents with abdominal pain. Pain began yesterday after a liver biopsy. Was monitored about 45 minutes and still had abdominal pain, but sent home. Patient had no abdominal pain beforehand. Pain persisted and remained severe. So, she presented to the ED. In the ED pt received morphine and pip/tazo. The contacted Dr. Montalvo who said to monitor Hg. CT showed new fluid around her liver. [facility] Medical History Acute renal failure Anemia Antiphospholipid antibody syndrome Anxiety Aortic mural thrombus Cervical myelopathy Depression Diabetes SAMAYOA (dyspnea on exertion) Elevated liver enzymes FH: total knee replacement Hypertension Kidney disease Kidney stones Liver failure Non-pressure chronic ulcer of skin of other sites with fat layer exposed Osteoporosis Rheumatoid arthritis Rheumatoid idiopathic pulmonary fibrosis RUQ abdominal pain Shortness of breath at rest Tachycardia Thrombosis, arteries, femoral TIA (transient ischemic attack) Home Medications morphine 20 mg capsule,extended release pellets (Solange) 10 mg PO DAILY 05/09/15 [History Last Taken Unknown] omeprazole 20 mg capsule,delayed release 20 mg PO DAILY PRN Heartburn 05/09/15 [History Last Taken Unknown] prednisone 10 mg tablet 20 mg PO DAILY 05/09/15 [History Last Taken Unknown] duloxetine 60 mg capsule,delayed release 60 mg PO QHS 08/21/16 [History Last Taken Unknown] diltiazem HCl 120 mg tablet (Cardizem) 360 mg PO DAILY 09/06/16 [History Last Taken Unknown] amitriptyline 10 mg tablet 10 mg PO DAILY 03/09/18 [History Last Taken Unknown] buspirone 10 mg tablet 10 mg PO QHS PRN Anxiety 09/18/21 [History Last Taken Unknown] oxycodone 5 mg tablet 5 mg PO BID 09/18/21 [History Last Taken Unknown] buspirone 10 mg tablet 5 mg PO DAILY Check with primary doctor 09/21/21 [History Last Taken Unknown] warfarin 2.5 mg tablet (Jantoven) 2.5 mg PO DINNER #30 tabs 09/24/21 [Rx Last Taken 06/20/22 17:00] lisinopril 20 mg tablet 20 mg PO DAILY 04/08/22 [History Last Taken Unknown] Allergy/AdvReac Type Severity Reaction Status Date / Time abatacept [From Orencia] Allergy Other Verified 06/29/22 08:31 celecoxib [From Celebrex] Allergy Hives Verified 06/29/22 08:31 golimumab [From Simponi] Allergy Other Verified 06/29/22 08:31 infliximab [From Remicade] Allergy Rash Verified 06/29/22 08:31 rituximab [From Rituxan] Allergy Anaphylaxis Verified 06/29/22 08:31 rofecoxib [From Vioxx] Allergy Hives Verified 06/29/22 08:31 shellfish derived Allergy Hives Verified 06/29/22 08:31 adalimumab [From Humira] AdvReac Other Verified 06/29/22 08:31 hydroxychloroquine sulfate AdvReac Other Verified 06/29/22 08:31 [From Plaquenil] latex AdvReac Rash Verified 06/29/22 08:31 Family History Father CAD (coronary artery disease) Diabetes Mother Breast cancer Lymphoma Other Cancer Surgical History H/O section H/O total hysterectomy History of appendectomy History of bilateral knee replacement History of cardiac cath History of cholecystectomy History of left hip replacement S/P cervical spinal fusion S/P total right hip arthroplasty Social History Smoking Status: Never smoker alcohol intake: never ROS ROS Narrative Unable to obtain given severe pain and grogginess from previous medications. Vital Signs Vital Signs Vital Signs: 06/29/22 08:27 06/29/22 08:35 06/29/22 09:27 Temperature 36.8 C 36.5 C L Temperature Source Oral Oral Pulse Rate 118 H 116 H 106 H Respiratory Rate 20 H 28 H Blood Pressure 85/45 L 101/70 111/71 Blood Pressure Mean 58 80 84 Pulse Ox 94 97 Oxygen Delivery Method Room Air Nasal Cannula Oxygen Flow Rate (L/min) 2 06/29/22 10:27 Temperature 36.6 C Temperature Source Oral Pulse Rate 106 H Respiratory Rate 28 H Blood Pressure 116/75 Blood Pressure Mean 88 Pulse Ox 96 Oxygen Delivery Method Nasal Cannula Oxygen Flow Rate (L/min) 2 Weight Weight: 113.7 kg Body Mass Index (BMI) 44.4 Physical Exam Const Constitutional Narrative: Uncomfortable. Writhing in pain. HEENT normocephalic and head/scalp atraumatic Resp normal respiratory effort, no retractions and no use of accessory muscles Cardio regular rate, regular rhythm, S1 normal heart sound and S2 normal heart sound GI GI Narrative: distended, but not taut. TTP diffusely. hypoactive BS Neuro Neuro Narrative: trace LE edema. Results Lab / Micro Data Result Diagrams: 06/29/22 10:48 06/29/22 08:40 Labs: Laboratory Results - last 24 hr 06/29/22 08:40: WBC 25.3 H, RBC 5.17, Hgb 15.2 H, Hct 48.3 H, MCV 93.4, MCH 29.4, MCHC 31.5 L, RDW Std Deviation 55.5 H, RDW Coeff of Emily 16.2 H, Plt Count 293, MPV 9.7, Immature Gran % (Auto) 0.700, Neut % (Auto) 87.1 H, Lymph % (Auto) 6.0 L, Dolores % (Auto) 5.5, Eos % (Auto) 0.1, Baso % (Auto) 0.6, Absolute Neuts (auto) 22.0 H, Absolute Lymphs (auto) 1.52, Nucleated RBC % 0.1 06/29/22 08:40: Sodium 140, Potassium 4.3, Chloride 105, Carbon Dioxide 24.0, Anion Gap 11, BUN 20 H, Creatinine 1.70 H, Estim Creat Clear Calc 28.38, Est GFR (MDRD) Af Amer 39 L, Est GFR (MDRD) Non-Af 32 L, BUN/Creatinine Ratio 11.8, Glucose 101, Calcium 10.0, Total Bilirubin 1.40 H, Direct Bilirubin 0.41 H, AST 34, ALT 53, Alkaline Phosphatase 123 H, Total Protein 6.9, Albumin 2.5 L, Globulin 4.4 H, Albumin/Globulin Ratio 0.6 L, Lipase 71 L 06/29/22 08:40: Lactic Acid Cancelled 06/29/22 08:50: PT 15.4 H, INR 1.3 06/29/22 09:52: Lactic Acid 2.4 H* 06/29/22 10:48: Hgb 15.5 H, Hct 49.9 H Radiology Impression Abdomen/Pelvis CT 06/29/22 08:39 IMPRESSION: 1. Atelectatic changes in the bases and small right pleural effusion. 2. Mild fluid in the abdomen and pelvis new since the previous examination. 3. No focal acute inflammatory process. Limited evaluation of the right lower quadrant due to significant artifacts. 4. Nonspecific fluid-filled small bowel loops without evidence of bowel obstruction 5. Status post cholecystectomy and hysterectomy. Electronically Signed: Joel Vines MD at 9:45 EST , Chest X-Ray 06/29/22 09:27 IMPRESSION: Hypoventilatory and atelectatic changes in the lung bases. Electronically Signed: Joel Vines MD at 9:51 EST , Assessment & Plan Assessment/Plan (1) Subcapsular hepatic hematoma: PLAN: Post liver biospy. I reviewed CT images from yesterday and today and shows what appears to be a 1.5 cm thick fluid correction around the liver that was not present today before. I reviewed this with the patient's at bedside this a former tach in the CAT scan. I discussed the case with Dr. Montalvo, plans to treat this as a penetrating trauma and to monitor hemoglobins serially. No surgical intervention required at this time. General surgery consult. Pain control (2) SBO (small bowel obstruction): PLAN: Not present yesterday. Small bowel obstruction versus ileus N.p.o. If abdomen gets worse, may consider NG tube placement (3) Leukocytosis: PLAN: Could be reactive but cannot rule out intra-abdominal process at this time Patient receive Zosyn in the emergency room and will continue. PLAN: Plan Chronic conditions: rheumatoid arthritis: continue prednisone Antiphosphlipid antibody syndrome: warfarin on hold h/o TIA Cervical myelopathy depression HTN chronic pain VTE prophylaxis: SCD Charges/Coding Visit Charges Inpatient E&M: 72948 Init Hosp L3
--- NOTE | 2022-06-29 13:48 | CON.PCM.SX_ITS ---
Assessment & Plan Assessment/Plan (1) Subcapsular hepatic hematoma: PLAN: This is a 61-year-old female, past medical history significant for cirrhosis (unclear etiology), rheumatoid arthritis, antiphospholipid antibody syndrome, and morbid obesity, who is postprocedure day [address]-guided percutaneous liver biopsy now complicated by development of subcapsular hematoma and associated hemoperitoneum. Patient has significant pain/distress from this apparent bleeding, her vitals remain reassuring and her hemoglobin was normal on initial check. Fortunately, although patient is anticoagulated, her anticoagulation was held for the procedure and not restarted. Her INR was normal at 1.3 on initial emergency medicine evaluation. I held a lengthy conversation with patient, patient's spouse, and patient's son?all of whom have a medical background?regarding the management of patient's situation. I shared with them that bleeding beneath the liver capsule and then blood within the peritoneum are both associated with significant pain and act as a cathartic to the bowel. Therefore, I find it probable that patient has a ileus in as sociation with this bleed. I also shared with that her hemodynamic stability, normal hemoglobin, and mechanism of injury suggest that this condition should be expectantly managed at this point. They expressed understanding of this rationale and appreciation for the visit. Recommend: ? Holding all anticoagulation ? Repeat hemoglobin/hematocrit every 6 hours ? Type and screen ? Trend coagulation studies daily ? Encourage patient to be upright as much as possible and elevate head of bed at least 30 degrees given her tachypnea ? Dietary restriction to sips of water ? Serial abdominal exams (2) Hemoperitoneum: HPI Consult Data Date of Consult: 06/29/22 HPI Narrative Reason for Consultation: Abdominal pain and suspected postprocedure hematoma/bleeding HPI Narrative: JOSAFAT JEFFRIES, is a 61 F who presents to [facility] with her following a routine liver biopsy procedure yesterday for evaluation of patient's progressive liver dysfunction. According to patient, she had immediate discomfort following the procedure, but was informed that should get better over the next 24 hours. Her pain intensified overnight and she decided to seek evaluation. She states that she has had many procedures in her lifetime, but has never had the pain that she has now and rates this at a 10 out of 10. She otherwise denies any fevers or chills. She reports her last bowel movement was yesterday. She denies an appetite presently and complains of some mild nausea. Patient's and son, who accompany her, provides some of the history for today's encounter. They state that their /mother have been undergoing a work-up for liver dysfunction following his admission here at [facility] in September 2021. It is still unclear as to the etiology of her cirrhosis. They additionally report a history of antiphospholipid antibody syndrome and ongoing use of Lovenox and Coumadin. Given the patient's history, patient's reports that she has normally held in the range of 3-3.5 for her INR. Patient confirms that she was normal at the time of her biopsy. This is not the first time patient would have experienced a periprocedural bleeding event and they report a significant hematoma developed during a femoral vein access approach that was believed to have been inadvertent injury to the femoral artery at [facility]. They also relate a history of complicated hip replacement surg antony where patient had 5 different hip replacements on the right related to an infection. Lastly they report that patient has on a number of narcotic pain medications to manage her discomfort associated with a diagnosis of rheumatoid arthritis and that these medications do nothing to alleviate her abdominal discomfort last evening. [facility] Medical History Acute renal failure Anemia Antiphospholipid antibody syndrome Anxiety Aortic mural thrombus Cervical myelopathy Depression Diabetes SAMAYOA (dyspnea on exertion) Elevated liver enzymes FH: total knee replacement Hypertension Kidney disease Kidney stones Liver failure Non-pressure chronic ulcer of skin of other sites with fat layer exposed Osteoporosis Rheumatoid arthritis Rheumatoid idiopathic pulmonary fibrosis RUQ abdominal pain Shortness of breath at rest Tachycardia Thrombosis, arteries, femoral TIA (transient ischemic attack) Home Medications morphine 20 mg capsule,extended release pellets (Solange) 10 mg PO DAILY 05/09/15 [History Last Taken Unknown] omeprazole 20 mg capsule,delayed release 20 mg PO DAILY PRN Heartburn 05/09/15 [History Last Taken Unknown] prednisone 10 mg tablet 20 mg PO DAILY 05/09/15 [History Last Taken Unknown] duloxetine 60 mg capsule,delayed release 60 mg PO QHS 08/21/16 [History Last Taken Unknown] diltiazem HCl 120 mg tablet (Cardizem) 360 mg PO DAILY 09/06/16 [History Last Taken Unknown] amitriptyline 10 mg tablet 10 mg PO DAILY 03/09/18 [History Last Taken Unknown] buspirone 10 mg tablet 10 mg PO QHS PRN Anxiety 09/18/21 [History Last Taken Unknown] oxycodone 5 mg tablet 5 mg PO BID 09/18/21 [History Last Taken Unknown] buspirone 10 mg tablet 5 mg PO DAILY Check with primary doctor 09/21/21 [History Last Taken Unknown] warfarin 2.5 mg tablet (Jantoven) 2.5 mg PO DINNER #30 tabs 09/24/21 [Rx Last Taken 06/20/22 17:00] lisinopril 20 mg tablet 20 mg PO DAILY 04/08/22 [History Last Taken Unknown] Allergy/AdvReac Type Severity Reaction Status Date / Time abatacept [From Orencia] Allergy Other Verified 06/29/22 08:31 celecoxib [From Celebrex] Allergy Hives Verified 06/29/22 08:31 golimumab [From Simponi] Allergy Other Verified 06/29/22 08:31 infliximab [From Remicade] Allergy Rash Verified 06/29/22 08:31 rituximab [From Rituxan] Allergy Anaphylaxis Verified 06/29/22 08:31 rofecoxib [From Vioxx] Allergy Hives Verified 06/29/22 08:31 shellfish derived Allergy Hives Verified 06/29/22 08:31 adalimumab [From Humira] AdvReac Other Verified 06/29/22 08:31 hydroxychloroquine sulfate AdvReac Other Verified 06/29/22 08:31 [From Plaquenil] latex AdvReac Rash Verified 06/29/22 08:31 Family History Father CAD (coronary artery disease) Diabetes Mother Breast cancer Lymphoma Other Cancer Surgical History H/O section H/O total hysterectomy History of appendectomy History of bilateral knee replacement History of cardiac cath History of cholecystectomy History of left hip replacement S/P cervical spinal fusion S/P total right hip arthroplasty Social History Smoking Status: Never smoker alcohol intake: never Physical Exam Const alert Constitutional Narrative: Patient in moderate distress from abdominal discomfort Resp Resp Narrative: Shallow respirations GI GI Narrative: Mildly distended, soft, diffusely tender to palpation. Biopsy site appears appropriate with clean/dry dressing in far right upper quadrant Lab / Micro Data Result Diagrams: 06/29/22 10:48 06/29/22 08:40 Labs: Laboratory Results - last 24 hr 06/29/22 08:40: WBC 25.3 H, RBC 5.17, Hgb 15.2 H, Hct 48.3 H, MCV 93.4, MCH 29.4, MCHC 31.5 L, RDW Std Deviation 55.5 H, RDW Coeff of Emily 16.2 H, Plt Count 293, MPV 9.7, Immature Gran % (Auto) 0.700, Neut % (Auto) 87.1 H, Lymph % (Auto) 6.0 L, [place] % (Auto) 5.5, Eos % (Auto) 0.1, Baso % (Auto) 0.6, Absolute Neuts (auto) 22.0 H, Absolute Lymphs (auto) 1.52, Nucleated RBC % 0.1 06/29/22 08:40: Sodium 140, Potassium 4.3, Chloride 105, Carbon Dioxide 24.0, Anion Gap 11, BUN 20 H, Creatinine 1.70 H, Estim Creat Clear Calc 28.38, Est GFR (MDRD) Af Amer 39 L, Est GFR (MDRD) Non-Af 32 L, BUN/Creatinine Ratio 11.8, Glucose 101, Calcium 10.0, Total Bilirubin 1.40 H, Direct Bilirubin 0.41 H, AST 34, ALT 53, Alkaline Phosphatase 123 H, Total Protein 6.9, Albumin 2.5 L, Globulin 4.4 H, Albumin/Globulin Ratio 0.6 L, Lipase 71 L 06/29/22 08:40: Lactic Acid Cancelled 06/29/22 08:50: PT 15.4 H, INR 1.3 06/29/22 09:52: Lactic Acid 2.4 H* 06/29/22 10:48: Hgb 15.5 H, Hct 49.9 H Radiology Impression Abdomen/Pelvis CT 06/29/22 08:39 IMPRESSION: 1. Atelectatic changes in the bases and small right pleural effusion. 2. Mild fluid in the abdomen and pelvis new since the previous examination. 3. No focal acute inflammatory process. Limited evaluation of the right lower quadrant due to significant artifacts. 4. Nonspecific fluid-filled small bowel loops without evidence of bowel obstruction 5. Status post cholecystectomy and hysterectomy. Electronically Signed: Joel Vines MD at 9:45 EST Reading Location ID and State: [facility] / [place] Tel , Service support , Chest X-Ray 06/29/22 09:27 IMPRESSION: Hypoventilatory and atelectatic changes in the lung bases. Electronically Signed: Joel Vines MD at 9:51 EST Reading Location ID and State: [facility] / [place] Tel , Service support ,
[2022-06-29 13:58] LABS: Reflex Lactate? Y
[2022-06-29 14:40] LABS: Lactic Acid 2.7 mmol/L (0.4-1.9)
[2022-06-29] MEDS: 0.9% Normal Saline 1,000 ML 100 ML IV (15:31)
[2022-06-29] MEDS: HYDROmorphone 1 MG/ML Syringe IV (17:06)
[2022-06-29] MEDS: 0.9% Normal Saline 1,000 ML 150 ML IV ×2 (17:08→18:43)
[2022-06-29 17:42] LABS: Hematocrit 44.9 % (37-47); Hemoglobin 14.6 g/dL (12.0-15.0)
[2022-06-29] MEDS: proCHLORPERazine 10 MG/2 ML Vial 5 MG IV (21:37)
[2022-06-29] MEDS: 0.9% Saline Lock 10 ML Syringe IV ×3 (21:39→23:30)
[2022-06-29] MEDS: HYDROmorphone 0.5 MG/0.5 ML SYRINGE IV (21:59)
[2022-06-29] MEDS: Amitriptyline 10 MG Tablet PO (22:08)
[2022-06-29] MEDS: DULoxetine Hcl 60 MG Capsule PO (22:08)
[2022-06-29] MEDS: busPIRone 5 MG Tablet 10 MG PO (23:27)
[2022-06-30] VITALS (21 sets, daily range): BP systolic 68–126; BP diastolic 21–77; PULSE 98–126; RESP 14–58; TEMP 36.3–38.9; O2SAT 68–98
[2022-06-30 00:21] LABS: Hematocrit 46.1 % (37-47); Hemoglobin 14.6 g/dL (12.0-15.0)
[2022-06-30] MEDS: 0.9% Saline Lock 10 ML Syringe IV ×3 (00:43→04:28)
[2022-06-30] MEDS: Ondansetron 4 MG/2 ML Vial IV (00:43)
[2022-06-30] MEDS: 0.9% Normal Saline 1,000 ML 150 ML IV (00:45)
[2022-06-30] MEDS: HYDROmorphone 0.5 MG/0.5 ML SYRINGE IV (01:19)
--- NOTE | 2022-06-30 03:08 | RAD_ITS ---
EXAM: XR CHEST, 1 VIEW CLINICAL INDICATION: shortness of breath TECHNIQUE: Frontal view of the chest. This report was created using [employer] report generation technology. COMPARISON: None. FINDINGS: LUNGS AND PLEURAL SPACES: Bibasilar airspace disease and small pleural effusions. No pneumothorax. HEART: Unremarkable. Cardiac silhouette not enlarged. MEDIASTINUM: Central airways and mediastinal contour are unremarkable. BONES/JOINTS: Degenerative changes of the spine. Right shoulder reverse arthroplasty. SOFT TISSUES: Unremarkable. RAD/Chest 1 View (Portable) IMPRESSION: Bibasilar airspace disease and small pleural effusions. Findings may indicate pneumonia. Electronically Signed: Stewart Mace MD at 3:41 EST ,
[2022-06-30 03:21] LABS: Bedside Glucose 69 mg/dL (74-106)
[2022-06-30] MEDS: Dextrose 50%-Water 25 GM/50 ML DISP.SYRIN IV (03:35)
--- NOTE | 2022-06-30 03:35 | NURSING ---
0315- Patient arrived into ICU 3 after transfer from [facility] [place]. Oakes and Dr. Montalvo is at bedside preparing to place central line. 0338- Right IJ TLC placed. STAT chest x-ray ordered to confirm placement. Preparing to place arterial line.
[2022-06-30] MEDS: 0.9% Normal Saline 1,000 ML 999 ML IV ×2 (03:40→04:00)
--- NOTE | 2022-06-30 03:40 | RAD_ITS ---
EXAM: XR CHEST, 1 VIEW CLINICAL INDICATION: central line placement TECHNIQUE: Frontal view of the chest. This report was created using [employer] report generation technology. COMPARISON: Portable exam from same date. FINDINGS: LUNGS AND PLEURAL SPACES: Right basilar airspace disease and small pleural effusion. No pneumothorax. HEART: Unremarkable. Cardiac silhouette not enlarged. MEDIASTINUM: Central airways and mediastinal contour are unremarkable. BONES/JOINTS: Unremarkable. SOFT TISSUES: Unremarkable. TUBES, LINES AND DEVICES: Right jugular central line with tip at the cavoatrial junction. UPPER ABDOMEN: Elevated right diaphragm. RAD/Chest 1 View (Portable) IMPRESSION: 1. Right jugular central line with tip at the cavoatrial junction. No pneumothorax. 2. Right basilar airspace disease and small pleural effusion. Findings may indicate atelectasis or infection. Electronically Signed: Stewart Mace MD at 4:31 EST ,
[2022-06-30] MEDS: Naloxone 0.4 MG/ML Syringe IV (03:45)
[2022-06-30] MEDS: Phenylephrine 1 MG/10 ML SYRINGE IV (03:45)
[2022-06-30 04:04] LABS: Absolute Lymphocyte Count 0.93 X10^3/uL (0.83-4.51); Absolute Neutrophil Count 16.8 X10^3/uL (2.0-7.7); Basophil# 0.11 X10^3/uL; Basophil% 0.6 % (0-1); Eosinophil# 0.05 X10^3/uL; Eosinophils% 0.3 % (0-5); Hematocrit 43.2 % (37-47); Hemoglobin 13.3 g/dL (12.0-15.0); Lymphocyte # 0.93 X10^3/ul (0.83-4.51); Lymphocyte % 4.8 % (19-41); Mean Corp Hgb Conc 30.8 g/dL (32-36); Mean Corpuscular Hgb 29.2 pg (27.0-32.0); Mean Corpuscular Volume 94.9 fL (81-99); Mean Platelet Vol. 10.3 fl (6.2-12.0); Monocyte% 7.2 % (0-10); NRBC Flagged by Analyzer 0.1 % (0-5); Neutrophil # 16.81 X10^3/uL (2.7-7.7); Platelet Count 274 K/mm3 (150-450); RBC Distribution Width CV 16.7 % (11.6-14.6); RBC Distribution Width SD 58.8 fl (35.1-43.9); Red Blood Count 4.55 M/mm3 (4.2-5.4); White Blood Count 19.5 K/mm3 (4.4-11.0)
[2022-06-30 04:14] LABS: International Normalized Ratio 1.5
[2022-06-30 04:15] LABS: Partial Thromboplast Time 39.4 Seconds (24.1-36.2)
[2022-06-30 04:22] LABS: ALB/GLOB Ratio 0.5 RATIO (0.9-2.4); AST(SGOT) 24 U/L (15-37); Alanine Aminotransfer ALT/SGPT 33 U/L (13-56); Albumin, Serum 1.8 g/dL (3.2-5.0); Alkaline Phosphatase 148 U/L (45-117); Anion Gap 11 (5-15); BUN 28 mg/dL (7-18); BUN/Creat Ratio 11.4 RATIO (10-20); Calcium,Total 8.6 mg/dL (8.5-10.1); Chloride 109 mmol/L (98-107); Creatinine, Serum 2.46 mg/dL (0.55-1.02); EST Glomerular Filtration Rate 21 mL/min (>60); Est Glom Filt Rate - Afr Amer 26 mL/min (>60); Estimated Creatinine Clearance 19.61 ml/min; Globulin 3.8 g/dL (2.2-4.2); Glucose 129 mg/dL (74-106); Potassium 4.2 mmol/L (3.5-5.1); Protein, Total 5.6 g/dL (6.4-8.2); Sodium Level 142 mmol/L (136-145)
[2022-06-30] MEDS: fentaNYL 100 MCG/2 ML Ampul 25 MCG IV (04:30)
[2022-06-30 04:32] LABS: Lactic Acid 4.8 mmol/L (0.4-1.9)
[2022-06-30 04:40] LABS: Base Excess -8 mmol/L (-2 to +2); Bicarbonate 17.5 mmol/L (22-26); Blood Gas Specimen Type ART; FI02 100; O2 Delivery Device NRB; PO2 65 mmHG (75-100); SITE Art Line; SO2 92 % (95-99); Total Carbon Dioxide 19 mmol/L; pCO2 31.4 mmHg (35-45); pH 7.36 (7.35-7.45)
--- NOTE | 2022-06-30 04:43 | PCM.RX.CS ---
Consult Pharmacy has been consulted to manage selected antiobiotic: Vancomycin Type of Consult: New start Prior Doses of Antibiotics Received/Current Regimen: Medications Vancomycin HCl 1,250 mg/ (Sodium Chloride) 275 mls @ 167 mls/hr IV Q24H RENETTA Vancomycin HCl 2,000 mg/ (Sodium Chloride) 540 mls @ 250 mls/hr IV X1 ONE Stop: 06/30/22 06:09 Last Admin: 06/30/22 04:00 Dose: 250 mls/hr Labs: Sodium 142 mmol/L (136-145) 06/30/22 03:57 Potassium 4.2 mmol/L (3.5-5.1) 06/30/22 03:57 Chloride 109 mmol/L (98-107) H 06/30/22 03:57 Carbon Dioxide 22.0 mmol/L (21.0-32.0) 06/30/22 03:57 Anion Gap 11 (5-15) 06/30/22 03:57 BUN 28 mg/dL (7-18) H 06/30/22 03:57 Creatinine 2.46 mg/dL (0.55-1.02) H 06/30/22 03:57 Est GFR (MDRD) Af Amer 26 mL/min (>60) L 06/30/22 03:57 Est GFR (MDRD) Non-Af 21 mL/min (>60) L 06/30/22 03:57 BUN/Creatinine Ratio 11.4 RATIO (10-20) 06/30/22 03:57 Glucose 129 mg/dL (74-106) H 06/30/22 03:57 Weight used for dosin kg Estimated Creatinine Clearance: 28.2 Goal Trough: 15-20 mcg/mL Pharmacy Plan for Drug Dosing: Pharmacy Service will continue to monitor and adjust dosing as required. Follow-Up Labs: Trough Vancomycin Labs to be done on [date and time ordered]: 07/02/22 @4702
[2022-06-30 04:48] LABS: Procalcitonin > 50.00 ng/mL (0.00-0.09)
--- NOTE | 2022-06-30 05:35 | RAD_ITS ---
EXAM: XR CHEST, 1 VIEW CLINICAL INDICATION: LINE PLACEMENT AND ETT TUBE PLACEMENT TECHNIQUE: Frontal view of the chest. This report was created using [employer] report generation technology. COMPARISON: 06/30/2022 FINDINGS: LUNGS AND PLEURAL SPACES: Patchy bilateral airspace disease. No pneumothorax. No effusion. HEART: Unremarkable. Cardiac silhouette not enlarged. MEDIASTINUM: Central airways and mediastinal contour are unremarkable. BONES/JOINTS: Unremarkable. SOFT TISSUES: Unremarkable. TUBES, LINES AND DEVICES: Endotracheal tube with tip 3.6 cm above the timi. Right jugular central line with tip at the cavoatrial junction. Left jugular central line with tip in the mid SVC. Enteric tube extending below the level of the GE junction into the stomach. RAD/CXR for Line Placement IMPRESSION: 1. Endotracheal tube with tip 3.6 cm above the timi. Right jugular central line with tip at the cavoatrial junction. Left jugular central line with tip in the mid SVC. Enteric tube extending below the level of the GE junction into the stomach. 2. Patchy bilateral airspace disease. Findings may indicate pneumonia. Electronically Signed: Stewart Mace MD at 6:27 EST ,
[2022-06-30 05:36] LABS: Bedside Glucose 99 mg/dL (74-106)
[2022-06-30 05:45] LABS: Base Excess -9 mmol/L (-2 to +2); Bicarbonate 17.3 mmol/L (22-26); Blood Gas Specimen Type ART; FI02 100; Mode AC; O2 Delivery Device Adult Vent; PEEP 5; PO2 73 mmHG (75-100); RR 14; SITE Art Line; SO2 93 % (95-99); Total Carbon Dioxide 18 mmol/L; Vt 450; pCO2 33.1 mmHg (35-45); pH 7.33 (7.35-7.45)
--- NOTE | 2022-06-30 05:56 | PN_ITS ---
Progress Note Rapid response note: Rapid response was called because patient was severely hypotensive. Received IV fluid boluses. Because patient was admitted with subsequent subscapular liver hematoma blood was ordered even though patient's last hemoglobin that was within the past 4 hours was about 14. Patient was moaning and asking that nobody touch her abdomen. Patient was moved to the intensive care unit. General surgery who was on consult was notified. Dr. Montalvo, General Surgery came to bedside, helped managed patient and placed a central line in. Dr. Mercado, General Surgery was also at bedside to assist. Patient developed a fever. Antibiotics were changed from Zosyn to vancomycin plus Merrem. Patient received Carter-Synephrine IV push and then was placed on Levophed. Vasopressin was also added to Levophed was requiring increased amount of Levophed to maintain appropriate MAP. Patient received trauma blood and type and cross blood. Patient was intubated as ABG showed hypoxemia and patient was having shallow breathing and was tachypneic Family was notified of patient's status and family came to the bedside. Dr. Mercado General Surgery called for transfer and had a bed at [facility]. Patient accepted by Dr. Hickman. Assessment & Plan Assessment/Plan (1) Septic shock:
[2022-06-30] MEDS: Etomidate 20 MG/10 ML Vial IV (05:58)
[2022-06-30] MEDS: Succinylcholine Chloride 200 MG/10 ML SYRINGE IV (05:59)
--- NOTE | 2022-06-30 06:00 | RAD_ITS ---
EXAM: XR CHEST, 1 VIEW CLINICAL INDICATION: tube exchange TECHNIQUE: Frontal view of the chest. This report was created using [employer] report generation technology. COMPARISON: June 30, 2022 at 5:26 AM. FINDINGS: LUNGS AND PLEURAL SPACES: Right basilar pulmonary hypoinflation with patchy left greater than right perihilar and basilar opacities, similar to 1.5 hours earlier. No pneumothorax. No effusion. HEART: Unremarkable. Cardiac silhouette not enlarged. MEDIASTINUM: Central airways and mediastinal contour are unremarkable. BONES/JOINTS: Right shoulder prosthesis partially included. SOFT TISSUES: Unremarkable. VASCULATURE: Stable right jugular line, tip over the mid-distal SVC. Stable left jugular line, tip over the proximal SVC. TUBES, LINES AND DEVICES: Stable enteric tube, tip at least in the body of the stomach, not fully included. Mildly lower position of the endotracheal tube, tip roughly 2.7 cm superior to the inferior margin of the timi, it was 3.7 cm. RAD/Chest 1 View (Portable) IMPRESSION: 1. Slightly lower position of the endotracheal tube, tip now roughly 2.7 cm superior to the timi. Otherwise stable chest. 2. Low lung volumes and left greater than right opacities. Electronically Signed: Raven Garg MD at 6:41 EST ,
--- NOTE | 2022-06-30 06:08 | PCM.DC.SUM ---
Providers Date of Admission: 06/29/22 Date of Discharge: 06/30/22 Primary Care Physician: Dr. Fatmata Bains DO Consultations 06/29/22 16:41 Consult: General Surgery Routine Consulting Provider: Fabiano Montalvo Reason for Consult: hepatic hematoma EMERGENT Consult: No Notified: Yes Date Notified: 06/29/22 Time Notified: 12:11 Method of Notification: Verbal 06/30/22 06:01 Consult: Butter Melter / Pulmonary Medicine Routine Consulting Provider: Arsen Thomas Reason for Consult: Septic shock EMERGENT Consult: Yes Notified: Yes Date Notified: 06/30/22 Time Notified: 06:01 Method of Notification: Verbal Reason For Visit: HEPAITC HEMATOMA. SBO Diagnosis Discharge Diagnosis (1) Subcapsular hepatic hematoma: Status: Acute Code(s): K76.89 - Other specified diseases of liver (2) Hemoperitoneum: Status: Acute Code(s): K66.1 - Hemoperitoneum (3) Septic shock: Status: Acute Code(s): A41.9 - Sepsis, unspecified organism; R65.21 - Severe sepsis with septic shock Medications at Discharge Home Medications morphine 20 mg capsule,extended release pellets (Solange) 10 mg PO DINNER pain 05/09/15 omeprazole 20 mg capsule,delayed release 20 mg PO DAILY PRN Heartburn 05/09/15 prednisone 10 mg tablet 20 mg PO DAILY steroid 05/09/15 duloxetine 60 mg capsule,delayed release 60 mg PO QHS Check with primary doctor 08/21/16 diltiazem HCl 120 mg tablet (Cardizem) 240 mg PO DINNER heart 09/06/16 amitriptyline 10 mg tablet 10 mg PO DINNER Check with primary doctor 03/09/18 buspirone 10 mg tablet 10 mg PO QHS PRN Anxiety 09/18/21 oxycodone 5 mg tablet 10 mg PO DINNER pain 09/18/21 buspirone 10 mg tablet 5 mg PO DINNER Check with primary doctor 09/21/21 warfarin 2.5 mg tablet (Jantoven) 2.5 mg PO DINNER #30 tabs 09/24/21 lisinopril 20 mg tablet 20 mg PO DINNER heart 04/08/22 Hospital Course Summary of Care Provided Minutes Spent on Discharge: 35 Hospital Course: JOSAFAT JEFFRIES, is a 61 F who presents with abdominal pain after liver biopsy to the ED. Also had a abdomen and pelvis obtained showed subscapular hepatic hematoma. Hemoglobin was Trended and narcotic medication ordered for pain control Also patient was found to have small bowel obstruction versus an ileus so patient was kept NPO. Because of leukocytosis with possible intra abdominal infection patient was started on Zosyn. Patient became severely hypotensive and rapid response was called. Patient received IV fluid boluses and was placed in Trendelenburg position. Patient could not tolerate Trendelenburg position so she had to be placed in semirecumbent position. Trauma blood and type and cross blood was given. Patient was transferred to the intensive care unit where she was placed on pressors. General surgery who had been consulted placed central lines and help managed patient during the course of rehab rapid response. Arterial line was placed. Patient was found to run a fever. Zosyn was changed to vancomycin and Merrem. Procalcitonin returned to more than 50 and lactic acid was 4.8. Probably was not septic shock from gram-negative bacteremia. Because of hypoxemia in tachypnea patient was intubated. Butter Melter was present to help manage patient. Patient ET tube which initially was 7 mm was exchanged to 7.5 mm as there appeared to be a leaking from the tube. General surgery called [facility] for transfer and patient was accepted by Dr. Olmeod. At this time patient is waiting for a bed at [facility]. Physical Exam Narrative Physical exam: General: Well-nourished, well-developed. Head: Normocephalic, atraumatic, no tenderness ENT: ET tube in place. Neck: Nontender, No thyromegaly. CVS: Tachycardia. S1-S2 present. No murmur, gallop or rub. Respiratory : Ventilated respirations, chest wall nontender. Abdomen: tender, nondistended, normal bowel sounds, no masses : Mcgraw catheter (placed at the Hospital) Skin: Normal color, no trauma, abrasions Neuro: Intubated and sedated mechanical ventilation. Psychiatry:Intubated and sedated mechanical ventilation. Weight / BMI Weight Weight: 110.314 kg Body Mass Index (BMI) 43.0 ABG / Lab / Microbiology Data Result Diagrams: 06/30/22 03:57 06/30/22 03:57 Laboratory: Laboratory Results - last 24 hr 06/29/22 08:40: WBC 25.3 H, RBC 5.17, Hgb 15.2 H, Hct 48.3 H, MCV 93.4, MCH 29.4, MCHC 31.5 L, RDW Std Deviation 55.5 H, RDW Coeff of Emily 16.2 H, Plt Count 293, MPV 9.7, Immature Gran % (Auto) 0.700, Neut % (Auto) 87.1 H, Lymph % (Auto) 6.0 L, [place] % (Auto) 5.5, Eos % (Auto) 0.1, Baso % (Auto) 0.6, Absolute Neuts (auto) 22.0 H, Absolute Lymphs (auto) 1.52, Nucleated RBC % 0.1 06/29/22 08:40: Sodium 140, Potassium 4.3, Chloride 105, Carbon Dioxide 24.0, Anion Gap 11, BUN 20 H, Creatinine 1.70 H, Estim Creat Clear Calc 28.38, Est GFR (MDRD) Af Amer 39 L, Est GFR (MDRD) Non-Af 32 L, BUN/Creatinine Ratio 11.8, Glucose 101, Calcium 10.0, Total Bilirubin 1.40 H, Direct Bilirubin 0.41 H, AST 34, ALT 53, Alkaline Phosphatase 123 H, Total Protein 6.9, Albumin 2.5 L, Globulin 4.4 H, Albumin/Globulin Ratio 0.6 L, Lipase 71 L 06/29/22 08:40: Lactic Acid Cancelled 06/29/22 08:50: PT 15.4 H, INR 1.3 06/29/22 09:52: Lactic Acid 2.4 H* 06/29/22 10:48: Hgb 15.5 H, Hct 49.9 H 06/29/22 14:10: Lactic Acid 2.7 H* 06/29/22 17:35: Blood Type O POSITIVE, Antibody Screen NEGATIVE, Crossmatch See Detail 06/29/22 17:36: Hgb 14.6, Hct 44.9 06/29/22 23:58: Hgb 14.6, Hct 46.1 06/30/22 02:37: POC Glucose 69 L 06/30/22 03:57: Lactic Acid Cancelled 06/30/22 03:57: PT 18.0 H, INR 1.5, APTT 39.4 H 06/30/22 03:57: WBC 19.5 H, RBC 4.55, Hgb 13.3, Hct 43.2, MCV 94.9, MCH 29.2, MCHC 30.8 L, RDW Std Deviation 58.8 H, RDW Coeff of Emily 16.7 H, Plt Count 274, MPV 10.3, Immature Gran % (Auto) 1.100 H, Neut % (Auto) 86.0 H, Lymph % (Auto) 4.8 L, [place] % (Auto) 7.2, Eos % (Auto) 0.3, Baso % (Auto) 0.6, Absolute Neuts (auto) 16.8 H, Absolute Lymphs (auto) 0.93, Nucleated RBC % 0.1 06/30/22 03:57: Lactic Acid 4.8 H* 06/30/22 03:57: PT Cancelled, INR Cancelled 06/30/22 03:57: Sodium 142, Potassium 4.2, Chloride 109 H, Carbon Dioxide 22.0, Anion Gap 11, BUN 28 H, Creatinine 2.46 H, Estim Creat Clear Calc 19.61, Est GFR (MDRD) Af Amer 26 L, Est GFR (MDRD) Non-Af 21 L, BUN/Creatinine Ratio 11.4, Glucose 129 H, Calcium 8.6, Total Bilirubin 1.40 H, AST 24, ALT 33, Alkaline Phosphatase 148 H, Total Protein 5.6 L, Albumin 1.8 L, Globulin 3.8, Albumin/Globulin Ratio 0.5 L 06/30/22 03:57: Procalcitonin > 50.00 H 06/30/22 05:18: POC Glucose 99 Microbiology: Microbiology 06/30/22 04:18 Nasal Secretion SARS-CoV-2 Antigen (Rapid) - Final ABG: ABG 06/30/22 06/30/22 04:35 05:41 Specimen Type ART ART Sample Site Art Line Art Line pH 7.36 7.33 L Bicarbonate Actual 17.5 L 17.3 L Total CO2 19 18 Base Excess -8 L -9 L O2 Saturation 92 L 93 L O2 % 100 100 ABG pCO2 31.4 L 33.1 L ABG pO2 65 L 73 L Jorge Test N/A Respiration Rate 14 O2 Delivery Device NRB Adult Vent Vent Mode AC Tidal Volume 450 POC PEEP 5 Radiography Diagnostic Testing: Radiology Impression Abdomen/Pelvis CT 06/29/22 08:39 IMPRESSION: 1. Atelectatic changes in the bases and small right pleural effusion. 2. Mild fluid in the abdomen and pelvis new since the previous examination. 3. No focal acute inflammatory process. Limited evaluation of the right lower quadrant due to significant artifacts. 4. Nonspecific fluid-filled small bowel loops without evidence of bowel obstruction 5. Status post cholecystectomy and hysterectomy. Electronically Signed: Joel Vines MD at 9:45 EST Reading Location ID and State: [facility] / [place] Tel , Service support , Chest X-Ray 06/29/22 09:27 IMPRESSION: Hypoventilatory and atelectatic changes in the lung bases. Electronically Signed: Joel Vines MD at 9:51 EST Reading Location ID and State: [facility] / [place] Tel , Service support , Chest X-Ray 06/30/22 03:08 IMPRESSION: Bibasilar airspace disease and small pleural effusions. Findings may indicate pneumonia. Electronically Signed: Stewart Mace MD at 3:41 EST , Chest X-Ray 06/30/22 03:40 IMPRESSION: 1. Right jugular central line with tip at the cavoatrial junction. No pneumothorax. 2. Right basilar airspace disease and small pleural effusion. Findings may indicate atelectasis or infection. Electronically Signed: Stewart Mace MD at 4:31 EST , Meaningful Use Info Meaningful Use Diagnoses (Choose all that apply): None applicable Discharge Plan Admission Admit Date/Time: 06/29/22 12:06 Attending Provider: Gulshan Marsh Primary Care Provider: Fatmata Bains Consulting Providers: Fabiano Montalvo ; Arsen Thomas Discharge Orders/Prescriptions Prescriptions: No Action lisinopril 20 mg tablet 20 mg PO DINNER prednisone 10 MG tablet 20 mg PO DAILY omeprazole 20 MG capsule 20 mg PO DAILY PRN (Reason: Heartburn) morphine [Solange] 20 MG capsule,extend.release pellets 10 mg PO DINNER duloxetine 60 MG capsule 60 mg PO QHS diltiazem HCl [Cardizem] 120 MG tablet 240 mg PO DINNER amitriptyline 10 MG tablet 10 mg PO DINNER buspirone 10 mg tablet 10 mg PO QHS PRN (Reason: Anxiety) oxycodone 5 mg tablet 10 mg PO DINNER Label Comments: TAKE 1 TABLET BY MOUTH EVERY 4 HOURS NEEDED FOR UP TO 5 DAYS buspirone 10 mg tablet 5 mg PO DINNER Label Comments: TAKE 1 TO 2 TABLETS BY MOUTH THREE TIMES DAILY (NOT TO EXCEED 60MG (6 TABS) PER DAY) warfarin [Jantoven] 2.5 mg Tablet 2.5 mg PO DINNER Qty: 30 0RF Label Comments: want pts goal to be 3-3.5 - pt checks it daily - does text with Dr. Bains daily to see what dose to take Referrals / Follow Up: Fatmata Bains DO [Primary Care Provider] - Charges/Coding Visit Charges Inpatient E&M: 65310 Disch Hosp >30min
[2022-06-30] MEDS: Propofol 10MG/Ml 1,000 MG/100 ML Bottle 6.6 MG CONT INF (06:15)
--- NOTE | 2022-06-30 06:18 | SEPSISATNOTE ---
Sepsis Attestation Sepsis Alert: Yes Sepsis Attestation: Agree w/Sepsis Date exam was performed: 06/30/22 Time exam was performed: 02:00 Possible Source of Sepsis: GI tract/intra-abdominal Sepsis Organ Dysfunction Criteria Present: SBP < 90 mmHg or MAP < 65 mmHg, Acute Respiratory Failure (New need for BiPAP/CPAP or MV) and UOP < 0.5 mL/kg/hour for 2 consecutive hours Fluid Resuscitation Fluid resuscitation indicated?: Yes Fluid Resuscitation ordered: 30 ml/kg fluid bolus ordered Sepsis Note Date exam was performed: 06/30/22 Time exam was performed: 02:00 Sepsis Attestation: Sepsis re-evaluation was performed Response to fluids: Non Fluid responsive hypotension and Vasopressors started
--- NOTE | 2022-06-30 06:21 | CON.PCM.CC_ITS ---
Assessment & Plan Assessment/Plan (1) Hemoperitoneum: (2) Septic shock: (3) Morbid obesity with BMI of 40.0-44.9, adult: (4) Coagulation factor deficiency, acquired: PLAN: Plan RECOMMENDATIONS: 1. Continue pressors to maintain MAP of greater than 65 2. Continue current vent settings 3. Defer to tertiary center on anticoagulation given antiphospholipid in setting of possible capsular hematoma 4. Continue empiric antibiotics pending cultures IMPRESSIONS: 1. Acute hypoxic respiratory failure Unclear etiology at this time. Patient did appear to have some element of splinting per report. Patient has been intubated and required an exchange of the endotracheal tube. Patient reportedly has an anterior location, but I did not personally intubate the patient. ABG following intubation shows adequate oxygenation and ventilation on the current settings. 2. Iatrogenic subcapsular hematoma/chronic anticoagulation Patient with a rind around the liver on CT indicating probable hematoma. Patient reportedly does have a coagulation factor deficiency and is on anticoagulation at baseline. Defer to tertiary center on possible heparin drip. Drop in hemoglobin does not appear to be substantial enough to account for hypotension that is noticed. Some concern that there may be an element of gram- negative septic shock of unclear source. Cultures have been obtained. Continue with empiric antibiotics. Procalcitonin level is greater than 50. Vasopressin will be used in addition to Levophed. We will hold on stress dose steroids as patient will be leaving soon, but this could be a consideration at the tertiary center. 3. Rheumatoid arthritis/antiphospholipid syndrome/history of TIA/morbid obesity/cervical myelopathy/depression/chronic pain Complicates care, management, recovery and prognosis. Patient would benefit from stress dose steroids given chronic prednisone. Patient is on a fentanyl drip at this time. HPI Consult Data Date of Consult: 06/30/22 HPI Narrative Reason for Consultation: Multisystem organ failure HPI Narrative: JOSAFAT JEFFRIES is a 61 F, with past medical history listed below, who presents to [facility] 06/29/2022 secondary to abdominal pain. Patient reportedly had had a liver biopsy on the day previous. Patient had localized the pain to the right upper quadrant and throughout her epigastrium. Patient reportedly has pulmonary issues at baseline and did not feel that this was significantly different. Patient reportedly is on anticoagulation at baseline normally. In the ER, patient was afebrile, but tachycardic at 118 bpm. Patient found to have a blood pressure of 85/45 and saturating 94% on room air. On initial laboratory analysis patient was found to have a leukocytosis of 25.3, hemoglobin of 15.2 and platelets of 293. Chemistries showed a potassium of 4.3, creatinine of 1.7 and a total bilirubin of 1.4. Alk phos was elevated at 123. Lipase was only 71. Coagulation studies were within normal limits with an INR of 1.3. Lactate was 2.4. CT of the abdomen and pelvis showed atelectatic changes in the right base and nonspecific fluid-filled small bowels. Chest x-ray showed hypoinflation. In the emergency room, patient was given morphine and Zosyn. Surgery was called and evaluated CT did show a 1.5 cm thick fluid around the liver that was not done previously. Patient was admitted to the floor. Overnight, rapid response was called because of severe hypotension. Patient received IV fluid boluses and trauma blood. Patient was moaning and guarding her abdomen. Patient had a central line placed and was reportedly intubated. On my arrival at approximately 5 AM, patient was intubated, on Levophed at maximum doses and unresponsive. Patient was found to have a significant air leak despite multiple attempts at adding air. Surgery was attempting a left IJ. Left IJ was successful. After confirmation with chest x-ray that there were no complications, a 7.0 endotracheal tube was exchanged using a Cook catheter under my direct supervision with a 7.5 endotracheal tube. This led to significant improvement in air leak and return volumes. Per my knowledge, patient has never lost perfusion, but is becoming more dusky in her lower extremities per the nursing staff after initiation of pressors. [facility] and reportedly [facility] will be here in 20 minutes to transport the patient to [facility]. 38 minutes of critical care time was spent at the bedside achieving hemodynamic stability. Family has been called and is at the bedside. Latest x-ray shows appropriate position of endotracheal tube, central lines and OG. Patient is having vasopressin added. Patient is tachycardic, but has not had any malignant rhythms. [facility] Medical History Acute renal failure Anemia Antiphospholipid antibody syndrome Anxiety Aortic mural thrombus Cervical myelopathy Depression Diabetes SAMAYOA (dyspnea on exertion) Elevated liver enzymes FH: total knee replacement Hypertension Kidney disease Kidney stones Liver failure Non-pressure chronic ulcer of skin of other sites with fat layer exposed Osteoporosis Rheumatoid arthritis Rheumatoid idiopathic pulmonary fibrosis RUQ abdominal pain Shortness of breath at rest Tachycardia Thrombosis, arteries, femoral TIA (transient ischemic attack) Home Medications morphine 20 mg capsule,extended release pellets (Solange) 10 mg PO DINNER pain 05/09/15 [History Last Taken 06/28/22] omeprazole 20 mg capsule,delayed release 20 mg PO DAILY PRN Heartburn 05/09/15 [History Last Taken Unknown] prednisone 10 mg tablet 20 mg PO DAILY steroid 05/09/15 [History Last Taken 06/28/22] duloxetine 60 mg capsule,delayed release 60 mg PO QHS Check with primary doctor 08/21/16 [History Last Taken 06/28/22] diltiazem HCl 120 mg tablet (Cardizem) 240 mg PO DINNER heart 09/06/16 [History Last Taken 06/28/22] amitriptyline 10 mg tablet 10 mg PO DINNER Check with primary doctor 03/09/18 [History Last Taken 06/28/22] buspirone 10 mg tablet 10 mg PO QHS PRN Anxiety 09/18/21 [History Last Taken 06/28/22] oxycodone 5 mg tablet 10 mg PO DINNER pain 09/18/21 [History Last Taken 06/28/22] buspirone 10 mg tablet 5 mg PO DINNER Check with primary doctor 09/21/21 [History Last Taken 06/28/22] warfarin 2.5 mg tablet (Jantoven) 2.5 mg PO DINNER #30 tabs 09/24/21 [Rx Last Taken 06/28/22] lisinopril 20 mg tablet 20 mg PO DINNER heart 04/08/22 [History Last Taken Unknown] Allergy/AdvReac Type Severity Reaction Status Date / Time abatacept [From Orencia] Allergy Rash Verified 06/29/22 16:45 celecoxib [From Celebrex] Allergy Hives Verified 06/29/22 08:31 golimumab [From Simponi] Allergy rash] Verified 06/29/22 16:45 infliximab [From Remicade] Allergy Rash Verified 06/29/22 08:31 rituximab [From Rituxan] Allergy Anaphylaxis Verified 06/29/22 08:31 rofecoxib [From Vioxx] Allergy Hives Verified 06/29/22 08:31 shellfish derived Allergy Hives Verified 06/29/22 08:31 adalimumab [From Humira] AdvReac Anaphylaxis Verified 06/29/22 16:45 fluconazole [From Diflucan] AdvReac Liver Verified 06/29/22 16:57 Failure hydroxychloroquine sulfate AdvReac Rash Verified 06/29/22 16:45 [From Plaquenil] latex AdvReac Rash Verified 06/29/22 08:31 Family History Father CAD (coronary artery disease) Diabetes Mother Breast cancer Lymphoma Other Cancer Surgical History H/O section H/O total hysterectomy History of appendectomy History of bilateral knee replacement History of cardiac cath History of cholecystectomy History of left hip replacement S/P cervical spinal fusion S/P total right hip arthroplasty Social History Smoking Status: Never smoker alcohol intake: never ROS Review of Systems ROS Unobtainable: due to endotracheal tube and due to mental status Physical Exam Const Constitutional Narrative: Morbidly obese. Good vent synchrony. General Appearance: patient mechanically ventilated HEENT normocephalic and head/scalp atraumatic Eyes Eyes Narrative: Scleral injection without icterus Neck full ROM Resp Resp Narrative: Coarse breath sounds bilaterally. Cardio S1 normal heart sound, S2 normal heart sound, no murmurs, no rub and no gallops Rate: tachycardic GI GI Narrative: Grimaces with palpation. Extremity no clubbing, cyanosis or edema Skin Skin Narrative: Dusky toes bilateral lower extremities Neuro Sensorium / Orientation: sedated on vent Psych cooperative Lab / Micro Data Attestation: I reviewed the patient's lab results. Result Diagrams: 06/30/22 03:57 06/30/22 03:57 Labs: Laboratory Results - last 24 hr 06/29/22 08:40: WBC 25.3 H, RBC 5.17, Hgb 15.2 H, Hct 48.3 H, MCV 93.4, MCH 29.4, MCHC 31.5 L, RDW Std Deviation 55.5 H, RDW Coeff of Emily 16.2 H, Plt Count 293, MPV 9.7, Immature Gran % (Auto) 0.700, Neut % (Auto) 87.1 H, Lymph % (Auto) 6.0 L, [place]auf[place] % (Auto) 5.5, Eos % (Auto) 0.1, Baso % (Auto) 0.6, Absolute Neuts (auto) 22.0 H, Absolute Lymphs (auto) 1.52, Nucleated RBC % 0.1 06/29/22 08:40: Sodium 140, Potassium 4.3, Chloride 105, Carbon Dioxide 24.0, Anion Gap 11, BUN 20 H, Creatinine 1.70 H, Estim Creat Clear Calc 28.38, Est GFR (MDRD) Af Amer 39 L, Est GFR (MDRD) Non-Af 32 L, BUN/Creatinine Ratio 11.8, Glucose 101, Calcium 10.0, Total Bilirubin 1.40 H, Direct Bilirubin 0.41 H, AST 34, ALT 53, Alkaline Phosphatase 123 H, Total Protein 6.9, Albumin 2.5 L, Globulin 4.4 H, Albumin/Globulin Ratio 0.6 L, Lipase 71 L 06/29/22 08:40: Lactic Acid Cancelled 06/29/22 08:50: PT 15.4 H, INR 1.3 06/29/22 09:52: Lactic Acid 2.4 H* 06/29/22 10:48: Hgb 15.5 H, Hct 49.9 H 06/29/22 14:10: Lactic Acid 2.7 H* 06/29/22 17:35: Blood Type O POSITIVE, Antibody Screen NEGATIVE, Crossmatch See Detail 06/29/22 17:36: Hgb 14.6, Hct 44.9 06/29/22 23:58: Hgb 14.6, Hct 46.1 06/30/22 02:37: POC Glucose 69 L 06/30/22 03:57: Lactic Acid Cancelled 06/30/22 03:57: PT 18.0 H, INR 1.5, APTT 39.4 H 06/30/22 03:57: WBC 19.5 H, RBC 4.55, Hgb 13.3, Hct 43.2, MCV 94.9, MCH 29.2, MCHC 30.8 L, RDW Std Deviation 58.8 H, RDW Coeff of Emily 16.7 H, Plt Count 274, MPV 10.3, Immature Gran % (Auto) 1.100 H, Neut % (Auto) 86.0 H, Lymph % (Auto) 4.8 L, [place] % (Auto) 7.2, Eos % (Auto) 0.3, Baso % (Auto) 0.6, Absolute Neuts (auto) 16.8 H, Absolute Lymphs (auto) 0.93, Nucleated RBC % 0.1 06/30/22 03:57: Lactic Acid 4.8 H* 06/30/22 03:57: PT Cancelled, INR Cancelled 06/30/22 03:57: Sodium 142, Potassium 4.2, Chloride 109 H, Carbon Dioxide 22.0, Anion Gap 11, BUN 28 H, Creatinine 2.46 H, Estim Creat Clear Calc 19.61, Est GFR (MDRD) Af Amer 26 L, Est GFR (MDRD) Non-Af 21 L, BUN/Creatinine Ratio 11.4, Glucose 129 H, Calcium 8.6, Total Bilirubin 1.40 H, AST 24, ALT 33, Alkaline Phosphatase 148 H, Total Protein 5.6 L, Albumin 1.8 L, Globulin 3.8, Albumin/Globulin Ratio 0.5 L 06/30/22 03:57: Procalcitonin > 50.00 H 06/30/22 05:18: POC Glucose 99 Micro: Microbiology 06/30/22 04:18 Nasal Secretion SARS-CoV-2 Antigen (Rapid) - Final ABG Data ABG results: ABG 06/30/22 06/30/22 04:35 05:41 Specimen Type ART ART Sample Site Art Line Art Line pH 7.36 7.33 L Bicarbonate Actual 17.5 L 17.3 L Total CO2 19 18 Base Excess -8 L -9 L O2 Saturation 92 L 93 L O2 % 100 100 ABG pCO2 31.4 L 33.1 L ABG pO2 65 L 73 L Jorge Test N/A Respiration Rate 14 O2 Delivery Device NRB Adult Vent Vent Mode AC Tidal Volume 450 POC PEEP 5 Radiology Impression Abdomen/Pelvis CT 06/29/22 08:39 IMPRESSION: 1. Atelectatic changes in the bases and small right pleural effusion. 2. Mild fluid in the abdomen and pelvis new since the previous examination. 3. No focal acute inflammatory process. Limited evaluation of the right lower quadrant due to significant artifacts. 4. Nonspecific fluid-filled small bowel loops without evidence of bowel obstruction 5. Status post cholecystectomy and hysterectomy. Electronically Signed: Joel Vines MD at 9:45 EST , Chest X-Ray 06/29/22 09:27 IMPRESSION: Hypoventilatory and atelectatic changes in the lung bases. Electronically Signed: Joel Vines MD at 9:51 EST , Chest X-Ray 06/30/22 03:08 IMPRESSION: Bibasilar airspace disease and small pleural effusions. Findings may indicate pneumonia. Electronically Signed: Stewart Mace MD at 3:41 EST , Chest X-Ray 06/30/22 03:40 IMPRESSION: 1. Right jugular central line with tip at the cavoatrial junction. No pneumothorax. 2. Right basilar airspace disease and small pleural effusion. Findings may indicate atelectasis or infection. Electronically Signed: Stewart Mace MD at 4:31 EST , Charges/Coding Procedures Hospitalists Procedures: [id number] [facility] [address]
[2022-06-30] MEDS: Hydrocortisone Sod Succinate 100 MG/2 ML Vial IV (07:00)
--- NOTE | 2022-06-30 07:04 | PN.SURG_ITS ---
Objective Data Objective Data Vital Signs: Vital Signs Temp Pulse Resp BP Pulse Ox O2 Del Method O2 Flow Rate 97.4 F L 120 H 32 H 69/21 L 93 Venturi Mask 5 06/30/22 01:06 06/30/22 05:20 06/30/22 05:20 06/30/22 02:25 06/30/22 02:46 06/30/22 02:46 06/30/22 01:28 FiO2 100 06/30/22 05:20 Oxygen Flow Rate (L/min) 5 Oxygen Delivery Method Venturi Mask Weight: 243 lb 3.2 oz Body Mass Index (BMI) 43.0 Intake & Output: Intake and Output for Last 24 Hours 06/28/22 06/29/22 06/30/22 23:59 23:59 23:59 Intake Total 2685.83 / 2735.83 3545 / 3545 Balance 2685.83 / 2735.83 3545 / 3545 Lab / Micro Data Result Diagrams: 06/30/22 03:57 06/30/22 03:57 Labs: Laboratory Results - last 24 hr 06/29/22 08:40: WBC 25.3 H, RBC 5.17, Hgb 15.2 H, Hct 48.3 H, MCV 93.4, MCH 29.4, MCHC 31.5 L, RDW Std Deviation 55.5 H, RDW Coeff of Emily 16.2 H, Plt Count 293, MPV 9.7, Immature Gran % (Auto) 0.700, Neut % (Auto) 87.1 H, Lymph % (Auto) 6.0 L, [place] % (Auto) 5.5, Eos % (Auto) 0.1, Baso % (Auto) 0.6, Absolute Neuts (auto) 22.0 H, Absolute Lymphs (auto) 1.52, Nucleated RBC % 0.1 06/29/22 08:40: Sodium 140, Potassium 4.3, Chloride 105, Carbon Dioxide 24.0, Anion Gap 11, BUN 20 H, Creatinine 1.70 H, Estim Creat Clear Calc 28.38, Est GFR (MDRD) Af Amer 39 L, Est GFR (MDRD) Non-Af 32 L, BUN/Creatinine Ratio 11.8, Glucose 101, Calcium 10.0, Total Bilirubin 1.40 H, Direct Bilirubin 0.41 H, AST 34, ALT 53, Alkaline Phosphatase 123 H, Total Protein 6.9, Albumin 2.5 L, Globulin 4.4 H, Albumin/Globulin Ratio 0.6 L, Lipase 71 L 06/29/22 08:40: Lactic Acid Cancelled 06/29/22 08:50: PT 15.4 H, INR 1.3 06/29/22 09:52: Lactic Acid 2.4 H* 06/29/22 10:48: Hgb 15.5 H, Hct 49.9 H 06/29/22 14:10: Lactic Acid 2.7 H* 06/29/22 17:35: Blood Type O POSITIVE, Antibody Screen NEGATIVE, Crossmatch See Detail 06/29/22 17:36: Hgb 14.6, Hct 44.9 06/29/22 23:58: Hgb 14.6, Hct 46.1 06/30/22 02:37: POC Glucose 69 L 06/30/22 03:57: Lactic Acid Cancelled 06/30/22 03:57: PT 18.0 H, INR 1.5, APTT 39.4 H 06/30/22 03:57: WBC 19.5 H, RBC 4.55, Hgb 13.3, Hct 43.2, MCV 94.9, MCH 29.2, MCHC 30.8 L, RDW Std Deviation 58.8 H, RDW Coeff of Emily 16.7 H, Plt Count 274, MPV 10.3, Immature Gran % (Auto) 1.100 H, Neut % (Auto) 86.0 H, Lymph % (Auto) 4.8 L, [place] % (Auto) 7.2, Eos % (Auto) 0.3, Baso % (Auto) 0.6, Absolute Neuts (auto) 16.8 H, Absolute Lymphs (auto) 0.93, Nucleated RBC % 0.1 06/30/22 03:57: Lactic Acid 4.8 H* 06/30/22 03:57: PT Cancelled, INR Cancelled 06/30/22 03:57: Sodium 142, Potassium 4.2, Chloride 109 H, Carbon Dioxide 22.0, Anion Gap 11, BUN 28 H, Creatinine 2.46 H, Estim Creat Clear Calc 19.61, Est GFR (MDRD) Af Amer 26 L, Est GFR (MDRD) Non-Af 21 L, BUN/Creatinine Ratio 11.4, Glucose 129 H, Calcium 8.6, Total Bilirubin 1.40 H, AST 24, ALT 33, Alkaline Phosphatase 148 H, Total Protein 5.6 L, Albumin 1.8 L, Globulin 3.8, Al bumin/Globulin Ratio 0.5 L 06/30/22 03:57: Procalcitonin > 50.00 H 06/30/22 05:18: POC Glucose 99 Micro: Microbiology 06/30/22 04:18 Nasal Secretion SARS-CoV-2 Antigen (Rapid) - Final ABG Data ABG results: ABG 06/30/22 06/30/22 04:35 05:41 Specimen Type ART ART Sample Site Art Line Art Line pH 7.36 7.33 L Bicarbonate Actual 17.5 L 17.3 L Total CO2 19 18 Base Excess -8 L -9 L O2 Saturation 92 L 93 L O2 % 100 100 ABG pCO2 31.4 L 33.1 L ABG pO2 65 L 73 L Jorge Test N/A Respiration Rate 14 O2 Delivery Device NRB Adult Vent Vent Mode AC Tidal Volume 450 POC PEEP 5 Radiography Diagnostic Testing: Radiology Impression Abdomen/Pelvis CT 06/29/22 08:39 IMPRESSION: 1. Atelectatic changes in the bases and small right pleural effusion. 2. Mild fluid in the abdomen and pelvis new since the previous examination. 3. No focal acute inflammatory process. Limited evaluation of the right lower quadrant due to significant artifacts. 4. Nonspecific fluid-filled small bowel loops without evidence of bowel obstruction 5. Status post cholecystectomy and hysterectomy. Electronically Signed: Joel Vines MD at 9:45 EST Reading Location ID and State: [facility] / [place] Tel , Service support , Chest X-Ray 06/29/22 09:27 IMPRESSION: Hypoventilatory and atelectatic changes in the lung bases. Electronically Signed: Joel Vines MD at 9:51 EST Reading Location ID and State: [facility] / [place] Tel , Service support , Chest X-Ray 06/30/22 03:08 IMPRESSION: Bibasilar airspace disease and small pleural effusions. Findings may indicate pneumonia. Electronically Signed: Stewart Mace MD at 3:41 EST , Chest X-Ray 06/30/22 03:40 IMPRESSION: 1. Right jugular central line with tip at the cavoatrial junction. No pneumothorax. 2. Right basilar airspace disease and small pleural effusion. Findings may indicate atelectasis or infection. Electronically Signed: Stewart Mace MD at 4:31 EST Reading Location ID and State: [facility] / [place] Tel , Service support , Chest X-Ray 06/30/22 05:35 IMPRESSION: 1. Endotracheal tube with tip 3.6 cm above the timi. Right jugular central line with tip at the cavoatrial junction. Left jugular central line with tip in the mid SVC. Enteric tube extending below the level of the GE junction into the stomach. 2. Patchy bilateral airspace disease. Findings may indicate pneumonia. Electronically Signed: Stewart Mace MD at 6:27 EST , Chest X-Ray 06/30/22 06:00 IMPRESSION: 1. Slightly lower position of the endotracheal tube, tip now roughly 2.7 cm superior to the timi. Otherwise stable chest. 2. Low lung volumes and left greater than right opacities. Electronically Signed: Raven Garg MD at 6:41 EST ,
--- NOTE | 2022-06-30 07:05 | PRO.PCM_ITS ---
Procedure Report Date of Procedure: 06/30/22 Procedure name: Insertion of 7 [place] Citizen, triple-lumen central venous catheter via left internal jugular vein using ultrasound guidance Procedure detail: After recognizing suboptimal access despite prior placed right internal jugular CVC amidst further clinical deterioration, patient's consent wa s presumed for addition of a second central line. Patient was positioned in Trendelenburg to facilitate filling of the central veins of the neck. The head was positioned to the right to allow access to the left neck. The neck was cleansed with a chlorhexidine swab. The left internal jugular vein was localized using bedside ultrasound. It appeared to be widely patent. The superficial tissues of the neck were then anesthetized with a local block using 5 mL 1% Xylocaine. Under direct ultrasound guidance the vein was accessed with return of dark red blood. Using a Seldinger technique a guidewire was placed without difficulty. The guidewire tract was then opened at the skin with an 11 blade and dilated dilated. Then the central venous catheter was inserted into the vein. All ports aspirated and flushed ease. The catheter was then sewn in using 0 silk in three-point fixation. Insertion site was cleaned and a chlorhexidine dressing was placed about the catheter to maintain sterility. A post procedure chest x-ray was obtained to verify the position of the catheter within the mid SVC and exclude pneumothorax. With these observations, the line was approved for immediate use. Complications: None EBL: 5 mL Procedures Hospitalists Procedures: [id number] Insert Non-tunnel CV Cath
--- NOTE | 2022-06-30 07:05 | PCM.OP.PRO ---
Procedure Report Date of Procedure: 06/30/22 Procedure: Insertion of left radial arterial line?aborted and converted to right femoral arterial line Indication: Invasive blood pressure monitoring with vasopressors Given the emergent nature of the situation consent was presumed. Patient's left hand was supinated and her thumb was secured to the bed via tape to ensure the thumb remained everted and the area properly exposed. I then used ultrasound to localize the left radial artery. Color Doppler was used to confirm pulsatile flow. I moved slightly proximal to an area where the artery appeared its largest (but still found the diameter to be less than 2 mm). Here I used a Arrow dart system and on the second attempt had good flash return of bright red arterial blood. The built-in wire was advanced without difficulty, but it as the catheter was threaded there was resistance and I did not have pulsatile blood through the catheter once the wire was removed. Therefore the procedure was probably aborted and pressure was held over the wrist. Given that the patient was still awake, I confirmed with her that her last intervention to her femoral artery (including cutdown) was on the left side and that her right side had not been previously instrumented. Patient's right groin was then prepped?including clipping of the pubic hair in that location?and ultrasound was used to localize the right femoral artery. Using a pediatric line kit the artery was accessed under ultrasound guidance after instilling some local anesthetic. Seldinger technique was used to place our catheter over the guidewire and the catheter was then connected to pressurized tubing. It was secured in place at the groin using 2-0 silk suture and a chlorhexidine impregnated dressing. On transducing the catheter we had a good pulsatile waveform and blood pressure. The needle access was then used to draw a new set of labs and arterial blood gas. EBL: 5 mL Complications: None (aborted left radial arterial line insertion) Procedures Hospitalists Procedures: [id number] Insertion Catheter Artery
--- NOTE | 2022-06-30 07:05 | PCM.OP.PRO ---
Procedure Report Date of Procedure: 06/30/22 Procedure name: Insertion of 7 [place], triple-lumen central venous catheter to right internal jugular vein under ultrasound guidance Procedure detail: After obtaining consent from patient, patient was positioned in Trendelenburg to facilitate filling of the central veins of the neck. The head was positioned to the left to allow access to the right neck. The right internal jugular vein was localized using bedside ultrasound. It appeared to be widely patent with good flow on color Doppler. The superficial tissues of the neck were then anesthetized with a local block using 5 mL 1% Xylocaine. Under direct ultrasound guidance the vein was accessed with return of dark red blood. Using a Seldinger technique a guidewire was placed without difficulty. The guidewire tract was then opened at the skin with an 11 blade and dilated dilated. Then the central venous catheter was inserted into the vein. All ports aspirated and flushed ease. The catheter was then sewn in using 0 silk in three-point fixation. Insertion site was cleaned and a chlorhexidine dressing was placed about the catheter to maintain sterility. A post procedure chest x-ray was obtained to verify the position of the catheter at the cavoatrial junction junction and the line was approved for immediate use. Complications: None EBL: 5 mL Procedures Hospitalists Procedures: [id number] Insert Non-tunnel CV Cath
[2022-06-30 08:03] LABS: Reflex Lactate? Y
--- NOTE | 2022-06-30 08:25 | NURSING ---
0345-Left radial arterial line was attempted by Dr. Montalvo but was unsuccessful. Right femoral site was then prepped for next attempt. 0400-Right femoral arterial line placed, dressed, zeroed and leveled. Good wave form on the monitor. Patient tolerated procedure well.
--- NOTE | 2022-06-30 08:27 | NURSING ---
0450- Dr. Oakes is at bedside preparing to intubate patient. This RN and additional RN, RT, Dr. Montalvo and Dr. Mercado are at bedside. 0455- Etomidate 20mg IVP given. Succinylcholine 100mg IVP given. 0500- 7.0mm ETT placed, 24cm at the lip. Bilateral breath sounds auscultated and good color change. OG placed and gurgles heard with air bolus. Awaiting STAT chest x-ray to confirm placement. 0515- Patient's BP started dropping into 70s/40s despite the vasopressors and 2 units of PRBCs. Due to needed additional access Dr. Montalvo is preparing to place an additional central line. 0530- Left IJ TLC placed. Awaiting chest x-ray to confirm placement. 0600- Leak was heard and gurgles around ETT. Dr. Oakes and Dr. Thomas are at bedside preparing to exchange ETT. 0615- ETT exchanged with a cook catheter. New ETT is a 7.5mm sitting at 25cm at the lip. Bilateral breath sounds are auscultated and positive color change. Another STAT chest x-ray is ordered to confirm placement. 0630- Family has been updated by another RN and Dr. Montalvo and had previously received consent for all procedures listed above. Dr. Mercado has reached out to [facility] main to transfer patient. They have accepted at this time and awaiting bed assignment.
--- NOTE | 2022-06-30 08:37 | NURSING ---
0635- [facility] Main called back with room assignment of MICU G50- Bed 4 This RN called report to CARINA Mahajan. 0715- [facility] life flight is here preparing patient for transport. Patient's family is at bedside collecting patient's belongings- (phone, phone residential program manager, pants, shirt) and saying their goodbyes. 0734- Patient has left with [facility] life flight team.
--- NOTE | 2022-06-30 08:53 | PN_ITS ---
Progress Note I was notified via page at approximately 2:57 AM this morning patient has not had any acute clinical status change with more refractory hypotension and was being transferred to the unit after a rapid response was called. I had a brief conversation with Dr. Sims and assured him that I would be coming in, but requested that trauma blood be brought to the bedside. (I had previously been present at patient's bedside in the early evening of 06/29/2022 when patient appeared to have a hypotensive event related to narcotic administration and yet I communicated with the daytime hospitalist?Dr. Marsh that if patient became more hemodynamically unstable she would require transfer to a tertiary facility with IR angioembolization capabilities. He was in agreement, but we jointly decided to continue to observe the patient given a reassuring hemoglobin on recheck.) I then presented immediately to patient's bedside in the ICU where patient's initial blood early blood pressures were primarily in the range of 60s over 40s, but patient was mentating and conversing with us appropriately. Assuming a component of hemorrhagic shock I instructed the team to proceed with permissive hypotension targeting a MAP no more than 60. Also based on our experience with patient sensitivity to narcotics evening prior I requested 0.4 mg of Narcan being given to the patient. Trauma blood arrived and 1 unit was given. Patient's blood pressure did seem to transiently respond to this unit of blood. Still, Levophed was begun and titrated about her fluctuating maps. She was quite tachypneic in my concern beyond her immediate hypotension was her work of breathing. She stated that she had persistent abdominal discomfort, but did not raise any new concerns. Given our very limited vascular access, I immediately placed a right sided internal jugular vein CVC with ultrasound guidance. Post procedure chest x-ray showed the line to terminate at the cavoatrial junction and was in satisfactory position without pneumothorax. Line was approved for immediate use. At this point, patient's clinical status seem to be still deteriorating so I called and my partner, Dr. Mercado, to assist. She graciously accepted this request and presented to bedside initially, but shortly thereafter began working on a transfer to an outside facility. At roughly this point I was given word from nursing that patient's hemoglobin remained above 13 based on a sample sent during CVC insertion. With this information I discussed with the hospitalist possibility of septic shock and we were sure to broaden her antibiotic coverage to include Merrem and vancomycin. Given the tenuous nature of the patient's hemodynamic status I then attempted to perform a left radial ar terial line placement with ultrasound guidance. Unfortunately, likely owing to patient's vasopressor requirement, this artery was very diminutive (estimated at less than 2 mm in diameter) and although I had flash in my arrow I was unable to thread the catheter. Therefore this procedure was abruptly abandoned and I moved to a right femoral arterial access. At this point patient was still able to converse and stated that this was the clear side (where she had not had prior intervention for a hematoma). The arterial line was successfully placed in this location and the catheter was transduced for invasive blood pressure monitoring. At this time I also requested a arterial blood gas to be sent off a sample of the blood drawn from this line to update our resuscitation efforts. This gas re turned with a relatively normal pH at 7.35 and PCO2, but patient's PaO2 was low at 65 representing a hypoxic state. Differential for this hypoxia included poor respiratory effort, underlying comorbidities (especially rheumatoid arthritis), transfusion reaction, or possible infectious etiology. At this point patient was still conversant and I elicited from her that she was feeling as she was beginning to tire and she asked for us to insert a endotracheal tube. Just as we are holding this conversation, I was notified by nursing that patient's family had arrived to the hospital and they were immediately escorted in the room so that they could talk with their /mother. They were then directed to the ICU waiting room while we proceeded with urgent intubation by Dr. Sims. Patient did have some vomiting as the first intubation attempt was made and vomitus was promptly suctioned clear of the tracheal inlet. Thereafter, cricoid pressure was applied and a second attempt was made. Still, Dr. Sims appeared to have difficulty obtaining the airway so I made a call to Dr. Leyva of anesthesia while ICU nursing also notified Dr. Thomas of the situation and requested his presence at bedside. Ultimately, Dr. Sims prevailed in getting the endotracheal tube placed, but respiratory therapy repeatedly raised concerns that the endotracheal cuff was incompetent. At this point we did hear bilateral breath sounds so the endotracheal tube was left in place. An orogastric tube was fed into the stomach and the stomach was stomped with immediate return of 2 L dark brown aspirate. I requested immediate initiation of Protonix 80 mg twice daily. Patient's blood pressure, once again began to say again nursing reported inability to administer requested medications based on limited access so I placed a second central line into the patient's left internal jugular vein under ultrasound guidance. Post procedure chest x-ray showed this to terminate within the SVC and no pneumothorax was noted. There is therefore cleared for immediate use and we ordered a second unit of PRBCs. At this point Dr. Thomas was present at bedside and helped guide a uneventful endotracheal tube exchange as the chest x-ray had shown that the endotracheal tube was high, but with repositioning the cuff still remained dysfunctional. With his supervision now available and patient's clinical status now somewhat improved I exited the patient's room to address another critical patient and also in the hospital. Visit Charges Inpatient E&M: 24904 Subs Hosp L2
== END 2022-06-30 07:30 | disposition short-term general hospital (02) | DRG 919 ==
LOC: ED 12:35 → MS3 13:43 → ICU 06-30 04:49
PROVIDERS: Hospitalist; Emergency Provider Emergency Medicine; PCP Internal Medicine
DX: K91.870 Postprocedural hematoma of a digestive system organ or structure following a digestive system procedure (principal); A41.9 Sepsis, unspecified organism; R65.21 Severe sepsis with septic shock; J96.01 Acute respiratory failure with hypoxia; K66.1 Hemoperitoneum; K56.609 Unspecified intestinal obstruction, unspecified as to partial versus complete obstruction; G95.9 Disease of spinal cord, unspecified; Z68.41 Body mass index [BMI] 40.0-44.9, adult; D68.61 Antiphospholipid syndrome; E66.01 Morbid (severe) obesity due to excess calories; E11.9 Type 2 diabetes mellitus without complications; K74.60 Unspecified cirrhosis of liver; M06.9 Rheumatoid arthritis, unspecified; I10 Essential (primary) hypertension; K76.9 Liver disease, unspecified; Z79.01 Long term (current) use of anticoagulants; G89.29 Other chronic pain; Z79.52 Long term (current) use of systemic steroids; Z79.891 Long term (current) use of opiate analgesic; Z79.899 Other long term (current) drug therapy; F32.A Depression, unspecified; Y84.8 Other medical procedures as the cause of abnormal reaction of the patient, or of later complication, without mention of misadventure at the time of the procedure
CPT/HCPCS: 31500; 36415; 71045; 74177; 77012; 80053; 80076; 82803; 82962; 83605; 83690; 84145; 85014; 85018; 85025; 85027; 85049; 85610; 85730; 86850; 86900; 86901; 86920; 86922; 87040; 87077; 87186; 87811; 88307; 88313; 93005; 94002; 99156; 99252; 99285; J7030; J7040; J7050; P9016; Q9967; A4216; C1751; G0463; J2310; J2405; J3010; J3490